=== PATIENT | male | born 1930 | race Caucasian/White ===

== ENCOUNTER 2016-05-16 16:24 | Inpatient (IN) | payer MEDICARE ==
[2016-05-16] MEDS ORDERED: Acetaminophen TAB* 325 MG PO ONE (17:03)
[2016-05-16 17:08] LABS: Hematocrit 40 % (42-52); Hemoglobin 12.5 g/dl (14.0-18.0); Mean Corpuscular HGB Conc 31 g/dl (31-36); Mean Corpuscular Hemoglobin 27 pg (27-31); Mean Corpuscular Volume 88 fL (80-94); Mean Platelet Volume 9 um3 (7.4-10.4); Red Blood Count 4.59 10^6/ul (4.0-5.4); Red Cell Distribution Width 16 % (10.5-15); White Blood Count 5.1 10^3/ul (3.5-10.8)
--- NOTE | 2016-05-16 17:22 | RAD ---
INDICATION: Shortness of breath. COMPARISON: Similar chest x-ray dated April 13, 2015 TECHNIQUE: Single AP portable view of the chest was obtained. FINDINGS: Image quality is compromised due to the relative inferiority of a portable chest x-ray. The degree of cardiomegaly is similar to the previous chest x-ray. There is coarse calcification overlying the arch of the aorta. There has been mildly recent the degree of pulmonary vasculature engorgement and indistinction. The lungs are grossly clear. There is no evidence of a large pleural effusion. Visualized bones are normal for the patient's age. IMPRESSION: In the correct clinical setting chest x-ray findings could be compatible with exacerbation of congestive heart failure.
[2016-05-16 17:24] LABS: BUN/Creatinine Ratio 18.8 (8-20); Calcium 9.3 mg/dL (8.6-10.3); EGFR African American 59.8 (>60); EGFR Non-African American 46.5 (>60); Globulin 3.1 g/dL (2-4); Potassium 4.3 mmol/L (3.5-5.0); Total Bilirubin 0.6 mg/dL (0.2-1.0); Total Protein 7.1 g/dL (6.4-8.9)
[2016-05-16 17:27] LABS: Troponin I 0.04 ng/mL (<0.04)
[2016-05-16] MEDS ORDERED: cefTRIAXone(*) 1 GM in NS 0.9% 50 ML* 50 ML IVPB ONE (18:20)
[2016-05-16 19:10] LABS: Urine Bacteria Absent (Absent); Urine Bilirubin Negative (Negative); Urine Glucose Negative (Negative); Urine Nitrite Negative (Negative)
[2016-05-16] MEDS ORDERED: Ondansetron INJ* 2 MG/ML VIAL IV PRN (19:18)
[2016-05-16] MEDS ORDERED: Acetaminophen TAB* 325 MG PO PRN (19:18)
[2016-05-16] MEDS ORDERED: NS 0.9% 1000 ML* 2,000 ML IV ONE (19:18)
[2016-05-16] MEDS ORDERED: Albuterol 2.5 MG/3 ML NEB.SOL* (0.083%) INH PRN (19:23)
[2016-05-16] MEDS ORDERED: NS 0.9% 1000 ML* 1,000 ML IV SCH (19:30)
[2016-05-16] MEDS ORDERED: cefTRIAXone VIAL(*) 1,000 MG in NS 0.9% 50 ML* 50 ML IVPB SCH (20:00)
[2016-05-16] MEDS ORDERED: Iodixanol* (CONTRAST) 320 MG/ML 100 ML SDV IV ONE (20:08)
[2016-05-16] MEDS: Metoprolol Tartrate TAB* 50 mg PO SCH ×2 (20:28→21:34)
--- NOTE | 2016-05-16 21:47 | RAD ---
CLINICAL HISTORY: Abdominal pain COMPARISON: None TECHNIQUE: Contrast enhanced CT examination of the abdomen and pelvis from the lung bases through the initial tuberosities. The patient received 136 mL Visipaque 320 intravenously prior to imaging. FINDINGS: Imaging is limited by respiratory motion artifact. VISUALIZED LUNG BASES: The visualized lung bases are grossly clear. There is no pleural effusion. ABDOMEN AND PELVIS: The liver exhibits geographic areas of relative hypoattenuation particularly involving the right lobe of the liver. There are no definite enhancing masses or surface irregularity. The spleen, pancreas and adrenal glands are grossly normal in appearance. The gallbladder is normal. The right kidney is normal in appearance. There are multiple left-sided renal cysts the superior most left renal cyst has a Hounsfield unit greater than that of a simple cyst. The urinary bladder measures 16.5 x 10.6 cm in the sagittal plane and 12.3 cm transverse. Evaluation the bowel is limited without oral contrast. The small and large bowel are not distended. The patient's normal appendix is identified in the right lower quadrant (coronal image 40 of 136). There is no gross retroperitoneal or mesenteric lymphadenopathy. The pelvic viscera is normal in appearance. The calcified abdominal aorta exhibits mild aneurysmal dilatation measuring a maximum axial dimension 3.0 x 3.2 cm. There is coarse atherosclerotic calcification at the origins of the celiac trunk, superior mesenteric artery, left renal artery and the bilateral iliofemoral arteries. Degenerative changes include multilevel loss of intervertebral disc height involving the lower thoracic and lumbar spine as well as multilevel vacuum disc phenomenon..There are no sinister bone lesions. IMPRESSION: 1. Enlarged urinary bladder measuring approximate volume of 3.3 L. Please correlate to in since a bladder and/or urinary outlet obstruction. 2. Diffuse calcified atherosclerosis of the abdominal aorta and branch vessels. There is a small abdominal aortic aneurysm measuring 3.0 x 3.2 cm in the axial plane. 3. Multiple left renal cysts in addition to a hyperdense cyst with a Hounsfield unit greater than that of a simple cyst. On a nonemergent basis this cyst can be characterized with renal ultrasound. 4. Likely geographic fatty infiltration of the liver. 5. Additional chronic and degenerative changes as described in the body of the report.
[2016-05-16] MEDS ORDERED: Haloperidol INJ IV/IM* 5 MG/ML AMP ONE (23:45)
[2016-05-16] MEDS: IPRATROPIUM RESP MDI INH SCH (23:58)
[2016-05-16] MEDS: ALBUTEROL INH SCH (23:58)
--- NOTE | 2016-05-17 02:29 | HP ---
HISTORY AND PHYSICAL: DATE OF ADMISSION: 05/16/16 PRIMARY CARE PROVIDER: Saul Contreras MD ATTENDING PHYSICIAN WHILE IN THE HOSPITAL: Logan Kim MD * (report dictated by Silvio Guevara NP) CHIEF COMPLAINT: 1. Altered mental status. 2. Vomiting x1. HISTORY OF PRESENT ILLNESS: Mr. Slaughter is an 86-year-old male patient who has a history of hypertension, atrial fibrillation, pulmonary edema, hyperlipidemia, COPD, and he has had 2 CVAs with residual expressive aphasia in addition to his BPH and ANTIONETTE, although he is not on any treatment for this. He comes in today from [place]. His son was called as the patient was having more difficulty with expressing his words and was more confused than at his baseline. The patient has expressive aphasia at baseline, but today he was having significantly worsening trouble expressing his words. There has been no reports recently and again the patient really is unable to give much history because of his confusion and his garbled speech. There has been no report recently of fevers or chills or abdominal pain or any nausea or vomiting. The patient's son says that he last saw his father in [place] time and he had some low back pain in the middle of his back, but the patient is not complaining of this now. There were no reports of URI symptoms or shortness of breath or cough. There is just really altered mental status and weakness. His son went to [place] to get his father and take him to Urgent Care to be evaluated, but when he got there, he noted that he could not get him up, could not stand him, which was a complete change for his father; so at that point, they called the ambulance and he was brought in and on his way in to the hospital, it was noted that he did vomit x1. The patient denied having any abdominal discomfort, but he was evaluated in the ER and it was found that he had a fever of almost 103, tachycardic, he appeared to be septic, and the hospitalist service was asked to evaluate for admission. PAST MEDICAL HISTORY: Significant for: 1. Hypertension. 2. Atrial fibrillation. 3. Pulmonary edema. 4. Hyperlipidemia. 5. COPD. 6. CVA x2. 7. BPH. 8. ANTIONETTE. PAST SURGICAL HISTORY: Denied. HOME MEDICATIONS: Include: 1. Warfarin 3 mg daily. 2. Hytrin 10 mg p.o. b.i.d. 3. Zocor 20 mg daily. 4. Potassium 20 mEq p.o. daily. 5. Multivitamin 1 tablet daily. 6. Saw palmetto 3 capsules p.o. daily. 7. Toprol-XL 50 mg p.o. daily. 8. Ipratropium bromide 0.6% both nares b.i.d. before meals. 9. Lasix 20 mg daily. 10. Aspirin 81 mg daily. 11. Combivent 1 puff inhaled b.i.d. ALLERGIES: Include no known drug allergies. FAMILY HISTORY: According to the patient's son, mother lived up to age 93; father had a heart attack in his 60s. SOCIAL HISTORY: He is a former smoker. He does not drink alcohol. He lives in [place]. Surrogate decision maker is his son, Cira. REVIEW OF SYSTEMS: There is documented fever here, but the review is limited because of the patient's garbled speech. He is able to tell me that he has lower abdominal pain. He has been having nuts. He has no chest pain or any shortness of breath. There was 1 episode of vomiting. He denies any dysuria. Review of 14 systems attempted, but limited given the patient's altered mental status. PHYSICAL EXAMINATION GENERAL: At this time, Mr. Slaughter is an 86-year-old male patient. He appears to be in a mild amount of respiratory distress. He is awake and he is alert. He appears to be chronically ill-appearing male. VITAL SIGNS: Reveals blood pressure of 153/76, pulse of 119, respirations 24, O2 sat 91% on 4 L, and temperature 102.8. HEENT: Head is atraumatic and normocephalic. Eyes: EOMs are intact. Sclerae anicteric and not pale. Throat: Oral mucosa appears to be dry. No oropharyngeal erythema. NECK: Supple. LUNGS: Diminished in the bases. No wheezes, rales, or rhonchi. HEART: Heart sounds S1 and S2. Regular rate and rhythm. No murmurs, rubs, or gallops. ABDOMEN: Soft, mildly distended, he was tender in the lower suprapubic area. No CVA tenderness. EXTREMITIES: Pulses are 2+ throughout. He is able to move all 4 extremities with 5/5 strength. SKIN: Intact. NEUROLOGIC: He is awake. He is alert to himself. His speech is garbled and not clear. Shelter Advocate are equal. Tongue midline. He had no gross focal deficits. DIAGNOSTIC STUDIES/LAB DATA: Today revealed a WBC of 5.1, RBC of 4.59, hemoglobin of 12.5, hematocrit of 40, and platelet count of 179. His INR 2.81 and PTT 32.1. His sodium of 138, potassium 4.3, chloride 101, bicarb 32, BUN 27 , creatinine 1.44, glucose 211, lactic was 1.6, and calcium 9.3. Total bili 0.6 , AST 18, ALT 13, and alk phos 75. Troponin 0.04. BNP of 413. Albumin of 4.0. Urine showed 1+ protein, 3+ blood, 3+ leukocyte esterase, 3+ wbc, and 3+ rbc. He had a chest x-ray obtained today. To my read, he does appear to have pulmonary vascular congestion. There is no infiltrates or effusions. Radiology read it in current clinical setting chest x-ray findings could be compatible with exacerbation of CHF. EKG showed atrial fibrillation, rate of [address] elevation or T-wave inversions were noted, compared to the previous EKG it is similar. He had an echo that showed an EF 55% to 60%, just in the beginning of this month. Old medical records reviewed. ASSESSMENT AND PLAN: Mr. Slaughter is an 86-year-old male patient coming into the ER today with complaints of altered mental status and lower abdominal discomfort and weakness. On evaluation in the ER, he was noted to be septic, he was admitted under inpatient status for: 1. Sepsis: At this point, I think the etiology is most likely urinary tract infection, so I am going to do CT of the abdomen to make sure there is not any diverticulitis or possible pyelonephritis. He does have a high fever of 103. He is tachycardiac. I do think he warrants 2 L of fluids upfront. In addition to this, Rocephin to start and zuniga culture him, which we have done and he does have a slight work of breathing, so I am going to go ahead and put him on Vapotherm to help him with his work of breathing and we will continue to evaluate him. I did discuss with the family that he could deteriorate and require possible intubation, but at this point, I am hopeful with Vapotherm, fluids, and antibiotics; we can get him to improve and lactic was stable. We will continue to follow. 2. Atrial fibrillation with rapid ventricular response: This is partly being driven by the sepsis picture. I am going to give him some Tylenol to get the fever down. In addition to this, we will give him fluids, put him on Vapotherm. I am going to give him metoprolol, but I am going to change it to b.i.d. metoprolol tartrate and we would hold parameters. If that does not get the heart rate to come down, then I will consider starting Cardizem drip. We are giving him IV Lopressor and continue with beta blockers as long as his pressure tolerates, which it did so far. He is therapeutic on his Coumadin. We will continue. 3. Hypertension: I am going to stop his medications with the exception of his metoprolol. 4. Pulmonary edema: He has had a history of this. He has got some on the chest x-ray, but on lung exam, he is clear. Given the sepsis picture, he needs hydration currently. 5. Hyperlipidemia: Continue current medical regimen. 6. Chronic obstructive pulmonary disease: We will continue his Combivent b.i.d. and p.r.n. nebs. 7. History of cerebrovascular accidents x2: Continue secondary prevention. 8. Benign prostatic hyperplasia: I am going to hold the Hytrin as this can lower the blood pressure. We will place the Hyman for accurate Is and Os. 9. Obstructive sleep apnea: Follow with his primary. 10. DVT prophylaxis: He is on Coumadin. His INR is therapeutic. We will continue. 11. Fluid, electrolytes, and nutrition. Again, he can have a heart-healthy diet. TIME SPENT: Time spent on the admission was 30 minutes; greater than half the time was spent [id number] with the patient obtaining my history and physical, the other half time is spent going over the plan of care with the patient and implementing plan of care. I discussed the plan of care with my attending, Dr. Kim. He is in agreement. SILVIO GUEVARA NP CC: Saul Contreras MD: Dr. Booth * [id number]/[facility] #: [id number] [facility]
[2016-05-17 07:38] LABS: Hematocrit 37 % (42-52); Hemoglobin 11.3 g/dl (14.0-18.0); Mean Corpuscular HGB Conc 31 g/dl (31-36); Mean Corpuscular Hemoglobin 27 pg (27-31); Mean Corpuscular Volume 88 fL (80-94); Mean Platelet Volume 10 um3 (7.4-10.4); Red Blood Count 4.17 10^6/ul (4.0-5.4); Red Cell Distribution Width 16 % (10.5-15); White Blood Count 4.7 10^3/ul (3.5-10.8)
[2016-05-17 07:53] LABS: BUN/Creatinine Ratio 19.5 (8-20); EGFR African American 75.3 (>60); EGFR Non-African American 58.5 (>60); Potassium 3.8 mmol/L (3.5-5.0)
[2016-05-17] MEDS: Metoprolol Tartrate TAB* 50 mg PO SCH ×2 (08:53→20:39)
[2016-05-17] MEDS: Potassium Chlor TAB* 20 MEQ TAB.ER PO SCH (08:53)
[2016-05-17] MEDS: Aspirin Low Dose CHEW TAB* 81 MG PO SCH (08:54)
[2016-05-17] MEDS: Atorvastatin* 10 MG TAB PO SCH (08:54)
[2016-05-17] MEDS: IPRATROPIUM RESP MDI INH SCH ×2 (10:45→20:29)
[2016-05-17] MEDS: ALBUTEROL INH SCH ×2 (10:45→20:29)
--- NOTE | 2016-05-17 16:25 | ED ---
Juan Govea SooYoung, scribed for Sergio Cantor MD on 05/16/16 at 1716 . Shortness of Breath - HPI Summary HPI Summary: LEVEL 5 CAVEAT: LIMITED HPI DUE TO PT CONDITION, UNRELIABLE NARRATOR. 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 Son was called by the fpc at 1530 regarding pt having SOB and lower back aches. He met the pt at [facility] and they were referred to ED. Associated sx: "fogginess," vomiting, fever, lower back aches. Son is unsure if pt has had diarrhea, cough recently. PMHx: pos TIA, neg DM. - History of Current Complaint Chief Complaint: EDShortnessOfBreath Time Seen by Provider: 05/16/16 16:42 Hx Obtained From: Patient, Family/Creative Services Specialist - son, Medical Records Onset/Duration: Lasting Hours, Still Present Current Severity: Moderate Associated Signs & Symptoms: Fever - Allergy/Home Medications Allergies/Adverse Reactions: Allergies Allergy/AdvReac Type Severity Reaction Status Date / Time No Known Allergies Allergy Verified 04/14/15 02:01 Home Medications: Home Medications Albuterol/Ipratropium RESP(NF) [Combivent Respimat(NF)] 1 puff INH BID 05/16/16 [History Confirmed 05/16/16] Aspirin Low Dose CHEW TAB* [Aspirin Low Dose TAB*] 81 mg PO DAILY 05/16/16 [ History Confirmed 05/16/16] Ipratropium Crisfield (Nasal) [Ipratropium Crisfield] 0.06 % BOTH NARES BID AC 05/16 [History Confirmed 05/16/16] Metoprolol Succinate XL TAB* [Toprol XL TAB*] 50 mg PO DAILY 05/16/16 [History Confirmed 05/16/16] Multiple Vitamin [Daily Multiple Vitamin] 1 tab PO DAILY 05/16/16 [History Confirmed 05/16/16] Potassium Chlor TAB* [Klor Con ER TAB*] 20 meq PO DAILY 05/16/16 [History Confirmed 05/16/16] Simvastatin TAB(NF) [Zocor(NF)] 20 mg PO DAILY 05/16/16 [History Confirmed 05/16] Terazosin CAP* [Hytrin CAP*] 10 mg PO BID 05/16/16 [History Confirmed 05/16/16] Warfarin TAB(*) [Coumadin TAB(*)] 3 mg PO DAILY 05/16/16 [History Confirmed 07/28] PMH/Surg Hx/FS Hx/Imm Hx Previously Healthy: No Endocrine/Hematology History: Denies: Hx Diabetes Cardiovascular History: Reports: Hx Hypertension Denies: Hx Pacemaker/ICD Respiratory History: Reports: Hx Asthma, Hx Chronic Obstructive Pulmonary Disease (COPD) History: Denies: Hx Renal Disease Musculoskeletal History: Reports: Hx Arthritis Sensory History: Reports: Hx Contacts or Glasses Denies: Hx Hearing Aid Opthamlomology History: Reports: Hx Contacts or Glasses Neurological History: Reports: Hx Transient Ischemic Attacks (TIA) Psychiatric History: Denies: Hx Panic Disorder - Immunization History Date of Tetanus Vaccine: unknown Infectious Disease History: No Infectious Disease History: Denies: Traveled Outside the [place] in Last 30 Days - Family History Known Family History: Positive: Cardiac Disease - father - [place] at 52 - Social History Occupation: Retired Lives: Assisted Living Alcohol Use: unable to confirm Hx Substance Use: No Substance Use Type: Reports: None Hx Tobacco Use: Yes Smoking Status (MU): Former Smoker Review of Systems - ROS Summary Review of Systems Summary: LEVEL 5 CAVEAT: LIMITED ROS DUE TO PT CONDITION, UNRELIABLE NARRATOR. Positive: Fever Negative: Erythema Positive: Shortness Of Breath, Cough Positive: Vomiting Positive: Myalgia - lower back aches. Negative: Edema Negative: Rash Neurological: Other - neg: dizziness; pos: "foggy" All Other Systems Reviewed And Are Negative: No Physical Exam - Summary Physical Exam Summary: Constitutional: Well-developed, Well-nourished, Alert. (-) Distressed Skin: Warm, Dry HENT: Normocephalic; Atraumatic Eyes: Conjunctiva normal Neck: Musculoskeletal ROM normal neck. (-) JVD, (-) Stridor, (-) Tracheal deviation Cardio: Rhythm regular, rate normal, Heart sounds normal; Intact distal pulses; The pedal pulses are 2+ and symmetric. Radial pulses are 2+ and symmetric. (-) Murmur Pulmonary/Chest wall: DIMINISHED BREATH SOUNDS, CRACKLE IN BASES Abd: Soft, (-) Tenderness, (-) Distension, (-) Guarding, (-) Rebound Musculoskeletal: TRACE PEDAL EDEMA; SUPRAPUBIC TENDERNESS Lymph: (-) Cervical adenopathy Neuro: Alert, Oriented x3 Psych: Mood and affect Normal Triage Information Reviewed: Yes Vital Signs On Initial Exam: Initial Vitals Temp Pulse Resp BP Pulse Ox 102.8 F 108 22 170/77 91 05/16/16 17:00 05/16/16 17:00 05/16/16 17:00 05/16/16 17:00 05/16/16 17:00 Vital Signs Reviewed: Yes Diagnostics - Vital Signs Vital Signs Temp Pulse Resp BP Pulse Ox 05/16/16 17:07 127 28 89 05/16/16 17:00 102.8 F 108 22 170/77 91 - Laboratory Lab Results: Lab Results 05/16/16 Range/Units 16:55 WBC 5.1 (3.5-10.8) 10^3/ul RBC 4.59 (4.0-5.4) 10^6/ul Hgb 12.5 L (14.0-18.0) g/dl Hct 40 L (42-52) % MCV 88 (80-94) fL MCH 27 (27-31) pg MCHC 31 (31-36) g/dl RDW 16 H (10.5-15) % Plt Count 179 (150-450) 10^3/ul MPV 9 (7.4-10.4) um3 Neut % (Auto) 91.4 H (38-83) % Lymph % (Auto) 3.1 L (25-47) % Platte % (Auto) 2.7 (1-9) % Eos % (Auto) 1.4 (0-6) % Baso % (Auto) 1.4 (0-2) % Absolute Neuts (auto) 4.7 (1.5-7.7) 10^3/ul Absolute Lymphs (auto) 0.2 L (1.0-4.8) 10^3/ul Absolute Monos (auto) 0.1 (0-0.8) 10^3/ul Absolute Eos (auto) 0.1 (0-0.6) 10^3/ul Absolute Basos (auto) 0.1 (0-0.2) 10^3/ul Absolute Nucleated RBC 0.01 10^3/ul Nucleated RBC % 0.1 Result Diagrams: 05/17/16 06:54 05/17/16 06:54 Lab Statement: Any lab studies that have been ordered have been reviewed, and results considered in the medical decision making process. - Radiology CXR Xray Interpretation: Positive (See Comments) - IMPRESSION: In the correct clinical setting CXR findings could be compatible with exacerbation of CHF. Radiology Interpretation Completed By: Radiologist - EKG 1 Cardiac Rate: Tachycardia - 118 bpm EKG Rhythm: Atrial Fibrillation - with RVR Course/Dx - Course Course Of Treatment: MDM: A 86 y/o M BIBA from assisted living presents with SOB. Pt is an unreliable narrator. Son is present. Trop at 1655 is 0.04. EKG shows afib with RVR, tachy. - Diagnoses Provider Diagnoses: UTI (urinary tract infection), Sepsis, CHF (congestive heart failure) - Physician Notifications Discussed Care of Patient With: Dr. Guevara, hospitalist Instructed by Provider To: Admit As Inpatient Discharge - Discharge Plan Condition: Fair Disposition: ADMITTED TO [facility] The documentation as recorded by the Juan green SooYoung accurately reflects the service I personally performed and the decisions made by me, Sergio Cantor MD.
[2016-05-17] MEDS: Warfarin TAB(*) 3 MG PO SCH (17:07)
[2016-05-17] MEDS: cefTRIAXone VIAL(*) 1,000 MG in NS 0.9% 50 ML* 50 ML IVPB SCH (17:07)
--- NOTE | 2016-05-17 17:15 | PN ---
Subjective Date of Service: 05/17/16 Interval History: . Saw patient at bedside today. denies new complaints. Actually feels well. Daughter present -- says he is at or near his baseline. iv abx going well hr controlled; we discussed transfer to medical floor and he seemed ok with this idea. will follow. . Family History: Unchanged from Admission Social History: Unchanged from Admission Past Medical History: Unchanged from Admission Objective Active Medications: . Acetaminophen (Tylenol Tab*) 650 mg PO Q4H PRN PRN Reason: FEVER/PAIN Albuterol (Ventolin 2.5 Mg/3 Ml Neb.Ada*) 2.5 mg INH Q2H PRN PRN Reason: SOB/WHEEZING Albuterol/Ipratropium (Combivent Respimat(Nf)) 1 puff INH BID [facility] PRN Reason: Protocol Last Admin: 05/17/16 10:45 Dose: Not Given Aspirin (Aspirin Low Dose Tab*) 81 mg PO DAILY [facility] Last Admin: 05/17/16 08:54 Dose: 81 mg Atorvastatin Calcium (Lipitor*) 10 mg PO DAILY [facility] Last Admin: 05/17/16 08:54 Dose: 10 mg Haloperidol Lactate (Haldol Inj Iv/Im*) 5 mg IV SLOW PU Q6H PRN PRN Reason: AGITATION Ceftriaxone Sodium 1,000 mg/ (Sodium Chloride) 50 mls @ 200 mls/hr IVPB 1800 [facility] Last Admin: 05/17/16 17:07 Dose: 200 mls/hr Metoprolol Tartrate (Lopressor Tab*) 50 mg PO Q12HR [facility] Last Admin: 05/17/16 08:53 Dose: 50 mg Ondansetron HCl (Zofran Inj*) 4 mg IV Q6H PRN PRN Reason: NAUSEA Potassium Chloride (Klor Con Er Tab*) 20 meq PO DAILY [facility] Last Admin: 05/17/16 08:53 Dose: 20 meq Warfarin Sodium (Coumadin Tab(*)) 3 mg PO DAILY@1700 [facility] PRN Reason: Protocol Last Admin: 05/17/16 17:07 Dose: 3 mg . Vital Signs 05/16/16 05/16/16 05/16/16 19:30 20:00 20:30 Temperature Pulse Rate 126 124 Respiratory 22 24 Rate Blood Pressure 128/64 107/75 126/78 (mmHg) O2 Sat by Pulse 96 97 Oximetry 05/16/16 05/16/16 05/16/16 21:00 22:00 22:30 Temperature Pulse Rate 85 113 98 Respiratory 24 21 23 Rate Blood Pressure 159/109 148/105 (mmHg) O2 Sat by Pulse 95 96 98 Oximetry Oxygen Devices in Use Now: Nasal Cannula Appearance: edlerly man - dementia. Eyes: No Scleral Icterus Ears/Nose/Mouth/Throat: Clear Oropharnyx Neck: Trachea Midline Respiratory: Symmetrical Chest Expansion and Respiratory Effort - rhonchorous bilterally. Cardiovascular: NL Sounds; No Murmurs; No JVD Abdominal: NL Sounds; No Tenderness; No Distention Lymphatic: No Cervical Adenopathy Extremities: No Edema Skin: No Rash or Ulcers Neurological: NL Sensation Lines/Tubes/Other Access: Clean, Dry and Intact Peripheral IV Nutrition: Taking PO's Result Diagrams: 05/17/16 06:54 05/17/16 06:54 Additional Lab and Data: . Microbiology and Other Data: Microbiology 05/17/16 01:00 Nasal Screen MRSA (PCR)(RICHARD) - Final Nasal Mrsa Negative Assess/Plan/Problems-Billing . Assessment: 86 yo man with acute urinary tract infection and sepsis -- with rapid atrial fibrillation -- both resolving with acute therapy including IV Abx and aggressive IVF. Current Medications: - Acetaminophen (Tylenol Tab) 650 mg PO Q4H PRN FEVER/PAIN - Albuterol (Ventolin 2.5 Mg/3 Ml Neb.Ada*) 2.5 mg INH Q2H PRN SOB/WHEEZING - Albuterol/Ipratropium (Combivent Respimat(Nf)) 1 puff INH BID - Aspirin (Aspirin Low Dose Tab*) 81 mg PO DAILY [facility]IELA - Atorvastatin Calcium (Lipitor*) 10 mg PO DAILY - Haloperidol Lactate (Haldol Inj Iv/Im) 5 mg IV SLOW PU Q6H PRN AGITATION - Ceftriaxone Sodium 1,000 mg IV daily - Metoprolol Tartrate (Lopressor Tab*) 50 mg PO Q12HR - Ondansetron HCl (Zofran Inj*) 4 mg IV Q6H PRN NAUSEA - Potassium Chloride (Klor Con Er Tab*) 20 meq PO DAILY - Warfarin Sodium (Coumadin Tab) 3 mg PO DAILY . - Patient Problems (1) Urinary tract infection Current Visit: Yes Status: Acute Priority: High Comment: - causing sepsis and decline in mental status in this delicate patient. (2) Sepsis Current Visit: Yes Status: Acute Priority: High Comment: - Secondary to UTI - Cultures pending - s/p aggressive IVF - now resuscitated and stablized. (3) Altered mental state Current Visit: No Status: Acute Code(s): R41.82 - ALTERED MENTAL STATUS, UNSPECIFIED Comment: No evidence for acute CVA on imaging Attribute to UTI and sepsis (4) Atrial fibrillation with RVR Current Visit: No Status: Acute Priority: High Code(s): I48.91 - UNSPECIFIED ATRIAL FIBRILLATION Comment: Rate controlled after resuscitation continue with outpatient regimen; metoprolol 50 mg PO BID c/w coumadin (5) DVT prophylaxis Current Visit: No Status: Acute Priority: High Code(s): PTV0038 - Comment: coumadin (6) History of CVA in adulthood Current Visit: No Status: Acute Code(s): Z86.73 - PRSNL HX OF TIA (TIA), AND CEREB INFRC W/O RESID DEFICITS SNOMED Code(s): 472590724 Comment: c/w ASA
[2016-05-17] MEDS: Haloperidol INJ IV/IM* 5 MG/ML AMP IV SLOW PU PRN ×2 (18:35→23:50)
[2016-05-17] MEDS: CMCS Melatonin (NF) 3 MG TAB PO SCH (20:39)
[2016-05-18 06:10] LABS: Hematocrit 36 % (42-52); Hemoglobin 11.1 g/dl (14.0-18.0); Mean Corpuscular HGB Conc 31 g/dl (31-36); Mean Corpuscular Hemoglobin 27 pg (27-31); Mean Corpuscular Volume 88 fL (80-94); Mean Platelet Volume 9 um3 (7.4-10.4); Red Blood Count 4.05 10^6/ul (4.0-5.4); Red Cell Distribution Width 16 % (10.5-15); White Blood Count 5.2 10^3/ul (3.5-10.8)
[2016-05-18 06:29] LABS: Albumin 3.3 g/dL (3.2-5.2); BUN/Creatinine Ratio 16.1 (8-20); Calcium 8.5 mg/dL (8.6-10.3); EGFR African American 71.1 (>60); EGFR Non-African American 55.3 (>60); Globulin 2.9 g/dL (2-4); Potassium 4.1 mmol/L (3.5-5.0); Total Bilirubin 0.5 mg/dL (0.2-1.0); Total Protein 6.2 g/dL (6.4-8.9)
--- NOTE | 2016-05-18 07:44 | PN ---
Subjective Date of Service: 05/18/16 Interval History: Pt is feeling ok. He denies any pain or SOB. Overnight the patient was reportedly very confused, yelling and aggressive. He required being restraints overnight. Objective Active Medications: Acetaminophen (Tylenol Tab*) 650 mg PO Q4H PRN PRN Reason: FEVER/PAIN Albuterol (Ventolin 2.5 Mg/3 Ml Neb.Ada*) 2.5 mg INH Q2H PRN PRN Reason: SOB/WHEEZING Albuterol/Ipratropium (Combivent Respimat(Nf)) 1 puff INH BID [facility] PRN Reason: Protocol Last Admin: 05/17/16 20:29 Dose: 1 puff Aspirin (Aspirin Low Dose Tab*) 81 mg PO DAILY [facility] Last Admin: 05/17/16 08:54 Dose: 81 mg Atorvastatin Calcium (Lipitor*) 10 mg PO DAILY [facility] Last Admin: 05/17/16 08:54 Dose: 10 mg Haloperidol Lactate (Haldol Inj Iv/Im*) 5 mg IV SLOW PU Q6H PRN PRN Reason: AGITATION Last Admin: 05/17/16 23:50 Dose: 5 mg Ceftriaxone Sodium 1,000 mg/ (Sodium Chloride) 50 mls @ 200 mls/hr IVPB 1800 [facility] Last Admin: 05/17/16 17:07 Dose: 200 mls/hr Melatonin (Melatonin (Nf)) 3 mg PO BEDTIME [facility] Last Admin: 05/17/16 20:39 Dose: 3 mg Metoprolol Tartrate (Lopressor Tab*) 50 mg PO Q12HR [facility] Last Admin: 05/17/16 20:39 Dose: 50 mg Ondansetron HCl (Zofran Inj*) 4 mg IV Q6H PRN PRN Reason: NAUSEA Potassium Chloride (Klor Con Er Tab*) 20 meq PO DAILY [facility] Last Admin: 05/17/16 08:53 Dose: 20 meq Warfarin Sodium (Coumadin Tab(*)) 3 mg PO DAILY@1700 [facility] PRN Reason: Protocol Last Admin: 05/17/16 17:07 Dose: 3 mg Vital Signs 05/17/16 05/17/16 05/17/16 08:00 09:00 10:00 Temperature 99.1 F 99.2 F 99.4 F Pulse Rate 88 92 87 Respiratory 18 17 16 Rate Blood Pressure 130/60 120/61 96/65 (mmHg) O2 Sat by Pulse 96 97 100 Oximetry 05/17/16 05/17/16 05/17/16 11:00 11:42 12:00 Temperature 99.8 F 99.6 F Pulse Rate 88 84 Respiratory 20 22 Rate Blood Pressure 135/64 136/63 (mmHg) O2 Sat by Pulse 100 95 96 Oximetry 05/17/16 05/17/16 05/17/16 13:00 14:00 15:00 Temperature 99.7 F 100.2 F Pulse Rate 90 90 Respiratory 19 24 14 Rate Blood Pressure 115/71 (mmHg) O2 Sat by Pulse 94 97 Oximetry 05/17/16 05/17/16 05/17/16 20:00 20:39 20:40 Temperature 99.5 F Pulse Rate 116 83 59 Respiratory 18 22 21 Rate Blood Pressure 143/92 143/92 (mmHg) O2 Sat by Pulse 93 97 97 Oximetry 05/17/16 05/17/16 05/18/16 20:41 23:55 00:00 Temperature Pulse Rate 82 59 Respiratory 15 16 Rate Blood Pressure (mmHg) O2 Sat by Pulse 94 98 97 Oximetry 05/18/16 05/18/16 05/18/16 00:24 00:30 03:33 Temperature 96.6 F 99.7 F Pulse Rate 88 89 76 Respiratory 21 21 18 Rate Blood Pressure 144/83 (mmHg) O2 Sat by Pulse 94 94 95 Oximetry 05/18/16 04:00 Temperature 99.6 F Pulse Rate 86 Respiratory 17 Rate Blood Pressure (mmHg) O2 Sat by Pulse 96 Oximetry Oxygen Devices in Use Now: Nasal Cannula - 2L-96% Appearance: Elderly male sitting up in bed, NAD Eyes: No Scleral Icterus Ears/Nose/Mouth/Throat: Mucous Membranes Moist Respiratory: Symmetrical Chest Expansion and Respiratory Effort, Clear to Auscultation - diminished breath sounds in all lung salvador Cardiovascular: NL Sounds; No Murmurs; No JVD, No Edema, - - irregularly irregular Abdominal: NL Sounds; No Tenderness; No Distention Extremities: No Clubbing, Cyanosis Skin: No Rash or Ulcers, No Nodules or Sclerosis Neurological: - - + dysarthric speech, oriented to being in the hospital Result Diagrams: 05/18/16 05:50 05/18/16 05:50 Additional Lab and Data: . Microbiology and Other Data: Microbiology 05/17/16 01:00 Nasal Screen MRSA (PCR)(RICHARD) - Final Nasal Mrsa Negative Assess/Plan/Problems-Billing Mr Slaughter is an 86 yo M who has a h/o past CVAs with chronic expressive aphasia, HTN, afib, COPD, BPH and hyperlipidemia who presented to the ER with increased difficulty with speaking and weakness and was found to be likely septic secondary to a UTI. - Patient Problems (1) Sepsis Current Visit: Yes Status: Acute Priority: High Comment: It was felt that the patient's sepsis was secondary to UTI. He had 2 qSOFA indicators on admission and his SOFA score was at least 3. He was hydrated, supported with vapotherm and is now improved. (2) Urinary tract infection Current Visit: Yes Status: Acute Priority: High Comment: It was felt that the patient was septic secondary to UTI on admission. His urine culture was negative. He did have however urinary retention that required placement of a ramirez. Will keep the ramirez in place. Will treat for a total of 10 days (change to cefpodoxime on discharge) for possible UTI though I am not convinced this was the cause of his sepsis. (3) Urinary retention due to benign prostatic hyperplasia Current Visit: Yes Status: Acute Code(s): N28.89 - OTHER SPECIFIED DISORDERS OF KIDNEY AND URETER; R33.8 - OTHER RETENTION OF URINE SNOMED Code(s ): 089673076 Comment: The patient had >1L of urine in his bladder earlier this admission. A ramirez has been placed and should be left in. He can follow up with urology as an outpatient. (4) Altered mental state Current Visit: Yes Status: Acute Code(s): R41.82 - ALTERED MENTAL STATUS, UNSPECIFIED SNOMED Code(s): 286475307 Comment: Secondary to sepsis. Reportedly yesterday he was close to his baseline. Continue to monitor. He does appear to have significant owning. (5) Elevated troponin Current Visit: Yes Status: Acute Code(s): R79.89 - OTHER SPECIFIED ABNORMAL FINDINGS OF BLOOD CHEMISTRY SNOMED Code(s): 044959528 Comment: Likely demand ischemia. No c/o chest pain at this time. I would not pursue any further cardiac work up at this time. I will discuss this with the patient's family when they arrive. (6) Atrial fibrillation with RVR Current Visit: Yes Status: Acute Priority: High Code(s): I48.91 - UNSPECIFIED ATRIAL FIBRILLATION SNOMED Code(s): 382671747635416 Comment: HR is controlled on current regimen. INR was therapeutic on 05/16/15. Will get follow up level and continue the current coumadin dose. (7) History of CVA in adulthood Current Visit: Yes Status: Acute Code(s): Z86.73 - PRSNL HX OF TIA (TIA), AND CEREB INFRC W/O RESID DEFICITS SNOMED Code(s): 079184628 Comment: No signs of CVA this admission. Continue ASA, coumadin. (8) DVT prophylaxis Current Visit: Yes Status: Acute Priority: High Code(s): JCR5153 - SNOMED Code(s): 885765584 Comment: Therapeutic INR
[2016-05-18] MEDS: IPRATROPIUM RESP MDI INH SCH ×2 (08:19→19:37)
[2016-05-18] MEDS: ALBUTEROL INH SCH ×2 (08:19→19:37)
[2016-05-18] MEDS: Atorvastatin* 10 MG TAB PO SCH (10:40)
[2016-05-18] MEDS: Potassium Chlor TAB* 20 MEQ TAB.ER PO SCH (10:40)
[2016-05-18] MEDS: Aspirin Low Dose CHEW TAB* 81 MG PO SCH (10:40)
[2016-05-18] MEDS: Metoprolol Tartrate TAB* 50 mg PO SCH ×2 (10:41→20:04)
[2016-05-18] MEDS: cefTRIAXone VIAL(*) 1,000 MG in NS 0.9% 50 ML* 50 ML IVPB SCH (18:34)
[2016-05-18] MEDS: Warfarin TAB(*) 3 MG PO SCH (18:34)
[2016-05-18] MEDS: CMCS Melatonin (NF) 3 MG TAB PO SCH (20:08)
[2016-05-18] MEDS: Haloperidol INJ IV/IM* 5 MG/ML AMP IV SLOW PU PRN (22:57)
[2016-05-19] MEDS: IPRATROPIUM RESP MDI INH SCH (09:19)
[2016-05-19] MEDS: Metoprolol Tartrate TAB* 50 mg PO SCH ×2 (09:19→22:58)
[2016-05-19] MEDS: Aspirin Low Dose CHEW TAB* 81 MG PO SCH (09:19)
[2016-05-19] MEDS: ALBUTEROL INH SCH (09:19)
[2016-05-19] MEDS: Potassium Chlor TAB* 20 MEQ TAB.ER PO SCH (09:19)
[2016-05-19] MEDS: Atorvastatin* 10 MG TAB PO SCH (09:19)
--- NOTE | 2016-05-19 17:44 | PN ---
Subjective Date of Service: 05/19/16 Interval History: Pt is feeling well. He wants to get back home. He denies any SOB. Objective Active Medications: Acetaminophen (Tylenol Tab*) 650 mg PO Q4H PRN PRN Reason: FEVER/PAIN Albuterol (Ventolin 2.5 Mg/3 Ml Neb.Ada*) 2.5 mg INH Q2H PRN PRN Reason: SOB/WHEEZING Albuterol/Ipratropium (Combivent Respimat(Nf)) 1 puff INH BID [facility] PRN Reason: Protocol Last Admin: 05/19/16 09:19 Dose: 1 puff Aspirin (Aspirin Low Dose Tab*) 81 mg PO DAILY [facility] Last Admin: 05/19/16 09:19 Dose: 81 mg Atorvastatin Calcium (Lipitor*) 10 mg PO DAILY [facility] Last Admin: 05/19/16 09:19 Dose: 10 mg Haloperidol Lactate (Haldol Inj Iv/Im*) 5 mg IV SLOW PU Q6H PRN PRN Reason: AGITATION Last Admin: 05/18/16 22:57 Dose: 5 mg Ceftriaxone Sodium 1,000 mg/ (Sodium Chloride) 50 mls @ 200 mls/hr IVPB 1800 [facility] Last Admin: 05/18/16 18:34 Dose: 200 mls/hr Melatonin (Melatonin (Nf)) 3 mg PO BEDTIME [facility] Last Admin: 05/18/16 20:08 Dose: 3 mg Metoprolol Tartrate (Lopressor Tab*) 50 mg PO Q12HR [facility] Last Admin: 05/19/16 09:19 Dose: 50 mg Ondansetron HCl (Zofran Inj*) 4 mg IV Q6H PRN PRN Reason: NAUSEA Potassium Chloride (Klor Con Er Tab*) 20 meq PO DAILY [facility] Last Admin: 05/19/16 09:19 Dose: 20 meq Vital Signs 05/18/16 05/18/16 05/18/16 18:00 19:00 19:39 Temperature 99.5 F 99.8 F Pulse Rate 95 84 107 Respiratory 17 23 Rate Blood Pressure (mmHg) O2 Sat by Pulse 93 97 97 Oximetry 05/18/16 05/18/16 05/18/16 20:00 20:07 21:00 Temperature 97.3 F 99.8 F 99.4 F Pulse Rate 93 Respiratory 20 18 21 Rate Blood Pressure 141/73 (mmHg) O2 Sat by Pulse 96 96 Oximetry 05/18/16 05/18/16 05/19/16 21:05 21:15 00:42 Temperature 99.4 F 99.3 F 98.5 F Pulse Rate 92 87 85 Respiratory 21 24 20 Rate Blood Pressure 153/74 126/73 (mmHg) O2 Sat by Pulse 96 97 97 Oximetry 05/19/16 05/19/16 05/19/16 03:47 03:48 07:16 Temperature 97.3 F 97.4 F Pulse Rate 95 96 Respiratory 20 20 Rate Blood Pressure 136/82 147/71 (mmHg) O2 Sat by Pulse 97 96 Oximetry 05/19/16 05/19/16 05/19/16 08:00 11:56 15:50 Temperature Pulse Rate 81 90 Respiratory 18 24 18 Rate Blood Pressure (mmHg) O2 Sat by Pulse 95 91 94 Oximetry 05/19/16 15:57 Temperature 97.7 F Pulse Rate 96 Respiratory 21 Rate Blood Pressure 149/88 (mmHg) O2 Sat by Pulse 98 Oximetry Oxygen Devices in Use Now: None Appearance: Elderly male sitting up in bed, NAD Eyes: No Scleral Icterus Ears/Nose/Mouth/Throat: Mucous Membranes Moist Respiratory: Symmetrical Chest Expansion and Respiratory Effort, Clear to Auscultation Cardiovascular: NL Sounds; No Murmurs; No JVD, RRR, - - 1+ LE edema Abdominal: NL Sounds; No Tenderness; No Distention Extremities: No Clubbing, Cyanosis Skin: No Rash or Ulcers, No Nodules or Sclerosis Neurological: - - + expressive aphasia Result Diagrams: 05/18/16 05:50 05/18/16 05:50 Additional Lab and Data: . Microbiology and Other Data: Microbiology 05/17/16 01:00 Nasal Screen MRSA (PCR)([facility]) - Final Nasal Mrsa Negative Assess/Plan/Problems-Billing Mr Slaughter is an 86 yo M who has a h/o past CVAs with chronic expressive aphasia, HTN, afib, COPD, BPH and hyperlipidemia who presented to the ER with increased difficulty with speaking and weakness and was found to be likely septic secondary to a UTI. - Patient Problems (1) Sepsis Current Visit: Yes Status: Acute Priority: High Comment: It was felt that the patient's sepsis was secondary to UTI. He had 2 qSOFA indicators on admission and his SOFA score was at least 3. He was hydrated, supported with vapotherm and is now improved. (2) Acute respiratory failure with hypoxia Current Visit: Yes Status: Acute Code(s): J96.01 - ACUTE RESPIRATORY FAILURE WITH HYPOXIA SNOMED Code(s): 94873779 Comment: Present on admission secondary to sepsis. His hypoxic respiratory failure has improved. His saturations are low 90's on RA. (3) Urinary tract infection Current Visit: Yes Status: Acute Comment: It was felt that the patient was septic secondary to UTI on admission. His urine culture was negative. He did have however urinary retention that required placement of a ramirez. Will keep the ramirez in place. Will treat for a total of 10 days (change to cefpodoxime on discharge) for possible UTI though I am not convinced this was the cause of his sepsis. (4) Urinary retention due to benign prostatic hyperplasia Current Visit: Yes Status: Acute Code(s): N28.89 - OTHER SPECIFIED DISORDERS OF KIDNEY AND URETER; R33.8 - OTHER RETENTION OF URINE SNOMED Code(s ): 328286747 Comment: The patient had >1L of urine in his bladder earlier this admission. A ramirez has been placed and should be left in. He can follow up with urology as an outpatient. I discussed the case with Dr. Contreras. (5) Altered mental state Current Visit: Yes Status: Acute Code(s): R41.82 - ALTERED MENTAL STATUS, UNSPECIFIED SNOMED Code(s): 702909083 Comment: The patient had a metabolic encephalopathy secondary to sepsis. He is essentially at baseline. (6) Elevated troponin Current Visit: Yes Status: Acute Code(s): R79.89 - OTHER SPECIFIED ABNORMAL FINDINGS OF BLOOD CHEMISTRY SNOMED Code(s): 513076343 Comment: Likely demand ischemia. No c/o chest pain at this time. I would not pursue any further cardiac work up at this time. (7) Atrial fibrillation with RVR Current Visit: Yes Status: Acute Code(s): I48.91 - UNSPECIFIED ATRIAL FIBRILLATION SNOMED Code(s): 791937098563069 Comment: HR is controlled on current regimen. INR was 3.01 yestesrday and he received his coumadin last night. Hold coumadin tonight and recheck INR tomorrow. (8) History of CVA in adulthood Current Visit: Yes Status: Acute Code(s): Z86.73 - PRSNL HX OF TIA (TIA), AND CEREB INFRC W/O RESID DEFICITS SNOMED Code(s): 460533453 Comment: No signs of CVA this admission. Continue ASA, coumadin. (9) DVT prophylaxis Current Visit: Yes Status: Acute Code(s): SOU4233 - SNOMED Code(s): 715760731 Comment: Therapeutic INR (10) DNR (do not resuscitate) Current Visit: Yes Status: Acute
[2016-05-19] MEDS: cefTRIAXone VIAL(*) 1,000 MG in NS 0.9% 50 ML* 50 ML IVPB SCH (18:24)
[2016-05-19] MEDS: CMCS Melatonin (NF) 3 MG TAB PO SCH (22:58)
[2016-05-20] MEDS: Haloperidol INJ IV/IM* 5 MG/ML AMP IV SLOW PU PRN (02:28)
[2016-05-20 08:13] VITALS: BP 133/75
[2016-05-20] MEDS: IPRATROPIUM RESP MDI INH SCH ×2 (08:33→08:58)
[2016-05-20] MEDS: ALBUTEROL INH SCH ×2 (08:33→08:58)
[2016-05-20] MEDS: Aspirin Low Dose CHEW TAB* 81 MG PO SCH (08:42)
[2016-05-20] MEDS: Metoprolol Tartrate TAB* 50 mg PO SCH (08:42)
[2016-05-20] MEDS: Atorvastatin* 10 MG TAB PO SCH (08:42)
[2016-05-20] MEDS: Potassium Chlor TAB* 20 MEQ TAB.ER PO SCH (08:44)
--- NOTE | 2016-05-20 09:19 | PN ---
Subjective Date of Service: 05/20/16 Interval History: Pt is feeling well. He denies any pain or SOB. He is ready to go home. Objective Active Medications: Acetaminophen (Tylenol Tab*) 650 mg PO Q4H PRN PRN Reason: FEVER/PAIN Albuterol (Ventolin 2.5 Mg/3 Ml Neb.Ada*) 2.5 mg INH Q2H PRN PRN Reason: SOB/WHEEZING Albuterol/Ipratropium (Combivent Respimat(Nf)) 1 puff INH BID [facility] PRN Reason: Protocol Last Admin: 05/20/16 08:58 Dose: 1 puff Aspirin (Aspirin Low Dose Tab*) 81 mg PO DAILY [facility] Last Admin: 05/20/16 08:42 Dose: 81 mg Atorvastatin Calcium (Lipitor*) 10 mg PO DAILY [facility] Last Admin: 05/20/16 08:42 Dose: 10 mg Enoxaparin Sodium (Lovenox(*)) 110 mg SUBCUT ONCE [facility] Haloperidol Lactate (Haldol Inj Iv/Im*) 5 mg IV SLOW PU Q6H PRN PRN Reason: AGITATION Last Admin: 05/20/16 02:28 Dose: 5 mg Ceftriaxone Sodium 1,000 mg/ (Sodium Chloride) 50 mls @ 200 mls/hr IVPB 1800 [facility] Last Admin: 05/19/16 18:24 Dose: 200 mls/hr Melatonin (Melatonin (Nf)) 3 mg PO BEDTIME [facility] Last Admin: 05/19/16 22:58 Dose: 3 mg Metoprolol Tartrate (Lopressor Tab*) 50 mg PO Q12HR [facility] Last Admin: 05/20/16 08:42 Dose: 50 mg Ondansetron HCl (Zofran Inj*) 4 mg IV Q6H PRN PRN Reason: NAUSEA Potassium Chloride (Klor Con Er Tab*) 20 meq PO DAILY [facility] Last Admin: 05/20/16 08:44 Dose: 20 meq Vital Signs 05/19/16 05/19/16 05/19/16 11:56 15:50 15:57 Temperature 97.7 F Pulse Rate 81 90 96 Respiratory 24 18 21 Rate Blood Pressure 149/88 (mmHg) O2 Sat by Pulse 91 94 98 Oximetry 05/19/16 05/19/16 05/19/16 19:25 20:00 23:40 Temperature 97.7 F 98.2 F Pulse Rate 98 93 Respiratory 19 20 20 Rate Blood Pressure 166/98 134/94 (mmHg) O2 Sat by Pulse 97 98 83 Oximetry 05/20/16 05/20/16 05/20/16 01:57 07:15 09:01 Temperature 97.4 F Pulse Rate 92 Respiratory 17 Rate Blood Pressure 133/75 (mmHg) O2 Sat by Pulse 97 95 97 Oximetry 05/20/16 09:02 Temperature Pulse Rate 67 Respiratory 18 Rate Blood Pressure (mmHg) O2 Sat by Pulse 97 Oximetry Oxygen Devices in Use Now: None Appearance: Eldelry male sitting up in bed, NAD Eyes: No Scleral Icterus Ears/Nose/Mouth/Throat: Mucous Membranes Moist Respiratory: Symmetrical Chest Expansion and Respiratory Effort, Clear to Auscultation - anteriorly Cardiovascular: NL Sounds; No Murmurs; No JVD, - - irregularly irregular, controlled rate, 1+ LE edema Abdominal: NL Sounds; No Tenderness; No Distention Extremities: No Clubbing, Cyanosis Skin: No Rash or Ulcers, No Nodules or Sclerosis Neurological: - - alert, more appropriate speech today Result Diagrams: 05/18/16 05:50 05/18/16 05:50 Additional Lab and Data: . Microbiology and Other Data: Microbiology 05/17/16 01:00 Nasal Screen MRSA (PCR)([facility]) - Final Nasal Mrsa Negative Assess/Plan/Problems-Billing Mr Slaughter is an 86 yo M who has a h/o past CVAs with chronic expressive aphasia, HTN, afib, COPD, BPH and hyperlipidemia who presented to the ER with increased difficulty with speaking and weakness and was found to be likely septic secondary to a UTI. - Patient Problems (1) Sepsis Current Visit: Yes Status: Acute Comment: Resolved. (2) Acute respiratory failure with hypoxia Current Visit: Yes Status: Acute Code(s): J96.01 - ACUTE RESPIRATORY FAILURE WITH HYPOXIA SNOMED Code(s): 44506571 Comment: Present on admission secondary to sepsis. His hypoxic respiratory failure has improved. Pt is back on suupplemental O2 this AM (2L) will check O2 sats on RA again to see if he needs supplemental O2. (3) Urinary tract infection Current Visit: Yes Status: Acute Comment: Will continue cefpodoxime x6 more days. Continue ramirez catheter drainage until seen by urology. (4) Urinary retention due to benign prostatic hyperplasia Current Visit: Yes Status: Acute Code(s): N28.89 - OTHER SPECIFIED DISORDERS OF KIDNEY AND URETER; R33.8 - OTHER RETENTION OF URINE SNOMED Code(s ): 077285660 Comment: The patient had >1L of urine in his bladder earlier this admission. A ramirez has been placed and should be left in. He can follow up with urology as an outpatient. I discussed the case with Dr. Contreras who will make the referral to urology. (5) Altered mental state Current Visit: Yes Status: Acute Code(s): R41.82 - ALTERED MENTAL STATUS, UNSPECIFIED SNOMED Code(s): 349805867 Comment: The patient had a metabolic encephalopathy secondary to sepsis. He is essentially at baseline. (6) Elevated troponin Current Visit: Yes Status: Acute Code(s): R79.89 - OTHER SPECIFIED ABNORMAL FINDINGS OF BLOOD CHEMISTRY SNOMED Code(s): 838916701 Comment: Likely demand ischemia. No c/o chest pain at this time. I would not pursue any further cardiac work up at this time. (7) Atrial fibrillation with RVR Current Visit: Yes Status: Acute Code(s): I48.91 - UNSPECIFIED ATRIAL FIBRILLATION SNOMED Code(s): 878261083819211 Comment: HR is controlled on current regimen. INR today is subtherapeutic at 1.84-will give lovenox 110mg SQ x1 now and resume usual dose of coumadin. Repeat INR 05/22/16. (8) History of CVA in adulthood Current Visit: Yes Status: Acute Code(s): Z86.73 - PRSNL HX OF TIA (TIA), AND CEREB INFRC W/O RESID DEFICITS SNOMED Code(s): 313234659 Comment: No signs of CVA this admission. Continue ASA, coumadin. (9) DVT prophylaxis Current Visit: Yes Status: Acute Code(s): WYM6424 - SNOMED Code(s): 227036038 Comment: Therapeutic INR/lovenox (10) DNR (do not resuscitate) Current Visit: Yes Status: Acute
[2016-05-20] MEDS ORDERED: Furosemide IV* 10 MG/ML VIAL (40 MG) IV SLOW PU ONE (09:38)
[2016-05-20] MEDS ORDERED: Enoxaparin(*) 150 MG/ML 1 ML SYRINGE SUBCUT SCH (10:00)
--- NOTE | 2016-05-21 01:55 | DS ---
DISCHARGE SUMMARY: DATE OF ADMISSION: 05/16/16 DATE OF DISCHARGE: 05/20/16 PRIMARY CARE PROVIDER: Dr. Contreras. PRINCIPAL DIAGNOSIS: Sepsis secondary to probable urinary tract infection with urinary retention. SECONDARY DIAGNOSES: 1. Chronic obstructive pulmonary disease. 2. Benign prostatic hyperplasia. 3. Hyperlipidemia. 4. Atrial fibrillation. DISCHARGE MEDICATIONS: 1. Coumadin 3 mg p.o. daily. 2. Ipratropium bromide nasal spray 1 squirt to both nostrils twice daily. 3. Terazosin 10 mg p.o. b.i.d. 4. Simvastatin 20 mg p.o. daily. 5. Combivent Respimat 1 puff inhaled b.i.d. 6. Prostate 3 caps p.o. daily. 7. Potassium chloride 20 mEq p.o. daily. 8. Metoprolol-XL 50 mg p.o. daily. 9. Lasix 20 mg p.o. daily. 10. Multivitamin 1 tab p.o. daily. 11. Aspirin 81 mg p.o. daily. 12. Cefpodoxime 200 mg p.o. q.12 hours x6 days. HOSPITAL COURSE: Mr. Slaughter is an 86-year-old male who presented to the emergency room on 05/16/16 with increased expressive aphasia and weakness. The patient was admitted for presumed sepsis secondary to a urinary tract infection. He was placed initially in the intensive care unit. The patient's urine never grew any specific bacteria; however, he was found to have urinary retention. A Hyman catheter was placed as greater than 1 L of urine was noted within his bladder. The Hyman catheter has remained in place and the patient will need to follow up with Urology as an outpatient. In terms of the patient's sepsis, this has resolved. Again, no clear source was identified; however, the patient improved on a third generation cephalosporin. The patient is being discharged home to continue 6 more days of cefpodoxime. Overall, his mental status and his expressive aphasia are back to baseline. The patient carries a history of atrial fibrillation. This was controlled on his usual home medication regimen. He has been maintained on his Coumadin; however, after holding 1 dose due to slightly elevated INR, his INR is now subtherapeutic. The patient did receive a dose of Lovenox on the morning of 11/27 and he should resume his usual dose of Coumadin tonight. On admission, the patient also had hypoxic respiratory failure. I suspect this was secondary to his sepsis. This has resolved; however, it does appear that he needs supplemental oxygen at all times. The patient's son had discussed with me that he had previously been setup to have home O2; however, the patient never used it and therefore it was continued. Additionally, the patient was found to have a slightly elevated troponin on admission. I felt that this was likely secondary to demand ischemia. No further workup was undertaken. FOLLOWUP CONCERNS: The patient is being discharged home today on 05/20/16. ACTIVITY LEVEL: As tolerated. DIET: Regular. CONDITION ON DISCHARGE: Stable. The patient should follow up with Dr. Contreras in the next 4 to 7 days and with Urology in the next 1 to 2 weeks. TIME SPENT: 35 minutes were spent discharging this patient. CC: Dr. Contreras* [id number]/CPS #: [id number] MTDD
== END 2016-05-20 14:05 | DRG 871 ==
LOC: ED 16:24 → ICU 19:13 → MED 05-18 21:35
PROVIDERS: ADMIT Hospitalist; ATTEND Hospitalist
DX: A41.9 Sepsis, unspecified organism (principal); J96.01 Acute respiratory failure with hypoxia; N39.0 Urinary tract infection, site not specified; J81.1 Chronic pulmonary edema; N40.1 Benign prostatic hyperplasia with lower urinary tract symptoms; R33.8 Other retention of urine; J44.9 Chronic obstructive pulmonary disease, unspecified; E78.5 Hyperlipidemia, unspecified; I48.91 Unspecified atrial fibrillation; G47.33 Obstructive sleep apnea (adult) (pediatric); I10 Essential (primary) hypertension; Z79.01 Long term (current) use of anticoagulants; I69.320 Aphasia following cerebral infarction; Z79.82 Long term (current) use of aspirin; Z79.899 Other long term (current) drug therapy; Z87.891 Personal history of nicotine dependence; R74.8 Abnormal levels of other serum enzymes; Z66 Do not resuscitate
CPT/HCPCS: 36415; 71010; 74177; 80048; 80053; 81003; 81015; 83605; 83880; 84145; 84484; 85025; 85610; 85730; 87040; 87086; 87641; 87899; 93005; 94640; 94760; 99285; A9270-GY; J0696; J1630; J1650; J1940; Q9967

== ENCOUNTER 2016-05-21 05:02 | Emergency (ER) | payer MEDICARE ==
[2016-05-21 05:06] VITALS: BP 143/83
--- NOTE | 2016-05-21 05:52 | ED ---
Felipe Govea Billy, scribed for Charlie Tejeda MD on 05/21/16 at 0510 . GI/ HPI - HPI Summary HPI Summary: 86 y/o male BIB[facility] to [facility] from [place] after the catheter was found on the floor earlier this morning, assumed to be pulled out. He was discharged from [facility] by Dr. Faria earlier today with a diagnosis of sepsis secondary to probable UTI with urinary retention. He comes to the ED for a replacement ramirez catheter. He has no other complaints. - History of Current Complaint Chief Complaint: EDUrogenitalProblems Time Seen by Provider: 05/21/16 05:03 Stated Complaint: CATH PULLED OUT Hx Obtained From: Patient, EMS Onset/Duration: Started Hours Ago, Still Present Timing: Constant Severity: Moderate Current Severity: Moderate Pain Intensity: 0 Associated Signs and Symptoms: Positive: Negative Aggravating Factor(s): Nothing Alleviating Factor(s): Nothing - Additional Pertinent History Primary Care Physician: BLAS - Allergy/Home Medications Allergies/Adverse Reactions: Allergies Allergy/AdvReac Type Severity Reaction Status Date / Time No Known Allergies Allergy Verified 04/14/15 02:01 PMH/Surg Hx/FS Hx/Imm Hx Endocrine/Hematology History: Denies: Hx Diabetes Cardiovascular History: Reports: Hx Hypertension Denies: Hx Pacemaker/ICD Respiratory History: Reports: Hx Asthma, Hx Chronic Obstructive Pulmonary Disease (COPD), Hx Pulmonary Edema History: Denies: Hx Renal Disease Musculoskeletal History: Reports: Hx Arthritis Sensory History: Reports: Hx Contacts or Glasses Denies: Hx Hearing Aid Opthamlomology History: Reports: Hx Contacts or Glasses Neurological History: Reports: Hx Dementia, Hx Transient Ischemic Attacks (TIA) Psychiatric History: Denies: Hx Panic Disorder - Immunization History Date of Tetanus Vaccine: unknown Infectious Disease History: No Infectious Disease History: Denies: Traveled Outside the US in Last 30 Days - Family History Known Family History: Positive: Cardiac Disease - father - [place] at 52 - Social History Alcohol Use: unable to confirm Hx Substance Use: No Substance Use Type: Reports: None Hx Tobacco Use: Yes Smoking Status (MU): Former Smoker Type: Cigarettes Review of Systems Negative: Fever Positive: other - ramirez cath removed All Other Systems Reviewed And Are Negative: Yes Physical Exam Triage Information Reviewed: Yes Vital Signs On Initial Exam: Initial Vitals Temp Pulse Resp BP Pulse Ox 97.5 F 96 20 143/83 95 05/21/16 05:03 05/21/16 05:03 05/21/16 05:03 05/21/16 05:03 05/21/16 05:03 Vital Signs Reviewed: Yes Completion Of Physical Exam Limited Due To: Dementia Appearance: Positive: Well-Appearing, No Pain Distress Skin: Positive: Warm ENT: Positive: Hearing grossly normal Respiratory/Lung Sounds: Positive: Breath Sounds Present Abdomen Description: Positive: Nontender, Soft Bowel Sounds: Positive: Present Male Genital Exam: Positive: bleeding - from urethra AVPU Assessment: Alert Diagnostics - Vital Signs Vital Signs Temp Pulse Resp BP Pulse Ox 05/21/16 05:03 97.5 F 96 20 143/83 95 - Laboratory Lab Statement: Any lab studies that have been ordered have been reviewed, and results considered in the medical decision making process. Re-Evaluation - Re-Evaluation First Eval Change: Improved - ramirez catheter replaced without complication, draining blood tinged urine GIGU Course/Dx - Diagnoses Provider Diagnoses: Urinary retention Discharge - Discharge Plan Condition: Stable Disposition: HOME Patient Education Materials: Urinary Retention in Men (ED) Referrals: Saul Contreras MD [Primary Care Provider] - The documentation as recorded by the Felipe green Billy accurately reflects the service I personally performed and the decisions made by , Charlie Tejeda MD.
== END 2016-05-21 05:38 | disposition home or self-care (01) ==
LOC: ED 05:02
DX: R33.9 Retention of urine, unspecified (principal); Z87.891 Personal history of nicotine dependence
CPT/HCPCS: 99283

== ENCOUNTER 2016-07-02 15:29 | Inpatient (IN) | payer MEDICARE ==
[2016-07-02] MEDS ORDERED: NS 0.9% 1000 ML* 1,000 ML IV SCH (16:30)
[2016-07-02 16:36] LABS: Hematocrit 42 % (42-52); Hemoglobin 12.9 g/dl (14.0-18.0); Mean Corpuscular HGB Conc 31 g/dl (31-36); Mean Corpuscular Hemoglobin 26 pg (27-31); Mean Corpuscular Volume 85 fL (80-94); Mean Platelet Volume 10 um3 (7.4-10.4); Red Blood Count 4.96 10^6/ul (4.0-5.4); Red Cell Distribution Width 16 % (10.5-15); White Blood Count 5.4 10^3/ul (3.5-10.8)
[2016-07-02 16:39] LABS: Comments Flag Yes
[2016-07-02 16:40] LABS: Ammonia 26 mol/L (16-53)
[2016-07-02 16:42] LABS: Albumin 3.7 g/dL (3.2-5.2); BUN/Creatinine Ratio 21.1 (8-20); C Reactive Protein 21.43 mg/L (< 5.00); Calcium 9.1 mg/dL (8.6-10.3); EGFR African American 65.6 (>60); Globulin 3.5 g/dL (2-4); Magnesium 1.9 mg/dL (1.9-2.7); Potassium 3.8 mmol/L (3.5-5.0); Total Bilirubin 0.5 mg/dL (0.2-1.0); Total Protein 7.2 g/dL (6.4-8.9)
[2016-07-02 16:46] LABS: B Type Natriuretic Peptide 350 pg/mL
[2016-07-02 16:48] LABS: Troponin I 0.05 ng/mL (<0.04)
[2016-07-02 16:54] LABS: TSH (Thyroid Stimulating Horm) 1.8 mcIU/mL (0.34-5.60)
--- NOTE | 2016-07-02 16:56 | RAD ---
HISTORY: Altered mental status COMPARISONS: May 16, 2016 VIEWS:1: Single frontal portable view of the chest at 4:33 PM FINDINGS: LINES AND TUBES: None. CARDIOMEDIASTINAL SILHOUETTE: The cardiomediastinal silhouette is normal for portable technique. PLEURA: The costophrenic angles are sharp. No pleural abnormalities are noted. LUNG PARENCHYMA: The lungs are clear. ABDOMEN: The upper abdomen is clear. There is no subphrenic gas. BONES AND SOFT TISSUES: No bone or soft tissue abnormalities are noted. IMPRESSION: NO ACTIVE CARDIOPULMONARY DISEASE.
[2016-07-02] MEDS ORDERED: Albuterol/Ipratropium NEB.SOL* Albuterol 2.5 MG/Ipratropium 0.5 MG 3 ML INH ONE (17:05)
[2016-07-02] MEDS ORDERED: oxyCODONE/Acetamin 5/325 MG* TAB PO PRN (17:09)
[2016-07-02 17:44] LABS: Urine Bacteria Absent (Absent); Urine Bilirubin Negative (Negative); Urine Glucose Negative (Negative); Urine Nitrite Negative (Negative)
[2016-07-02] MEDS ORDERED: NS 0.9% 1000 ML* 1,000 ML IV ONE (19:29)
[2016-07-02] MEDS ORDERED: Levofloxacin 750 MG IVPREMIX(* 750 MG/150 ML BAG IVPB ONE (19:29)
[2016-07-02] MEDS ORDERED: Acetaminophen TAB* 325 MG PO PRN (20:27)
[2016-07-02] MEDS ORDERED: cefTRIAXone(*) 1 GM ADVAN/BAG ONE (20:48)
[2016-07-02] MEDS: cefTRIAXone VIAL(*) 1,000 MG in NS 0.9% 50 ML* 50 ML IVPB SCH (20:53)
[2016-07-02] MEDS: NS 0.9% 1000 ML* 1,000 ML IV SCH (22:37)
[2016-07-02] MEDS: Warfarin TAB(*) 1 MG PO SCH (22:39)
--- NOTE | 2016-07-02 22:45 | ED ---
Ann Govea Matthew, scribed for Miguel Tony MD on 07/02/16 at 1837 . Shortness of Breath - HPI Summary HPI Summary: An 86 y/o male presents to the ED with SOB and altered mental status per rolanree since today. The son states the patient appears near baseline. Associated symptoms include productive cough. He has a recent history of sepsis and presented to the ED approximately a month ago. The patient also has a Hyman Catheter in place, which has been in place for 5 weeks and was suppose to be changed at week 4; however, the son is unsure if this was done. Per the son, the patient seemed mildly fatigued yesterday. - History of Current Complaint Chief Complaint: EDGeneral Time Seen by Provider: 07/02/16 16:32 Hx Obtained From: Patient Onset/Duration: Still Present Timing: Constant Current Severity: Moderate Dyspnea At: Rest Associated Signs & Symptoms: Cough (Productive) - Allergy/Home Medications Allergies/Adverse Reactions: Allergies Allergy/AdvReac Type Severity Reaction Status Date / Time No Known Allergies Allergy Verified 04/14/15 02:01 Home Medications: Home Medications Terazosin HCl 10 mg PO BID 07/02/16 [History Confirmed 07/02/16] PMH/Surg Hx/FS Hx/Imm Hx Endocrine/Hematology History: Denies: Hx Diabetes Cardiovascular History: Reports: Hx Hypertension Denies: Hx Pacemaker/ICD Respiratory History: Reports: Hx Asthma, Hx Chronic Obstructive Pulmonary Disease (COPD), Hx Pulmonary Edema History: Denies: Hx Renal Disease Musculoskeletal History: Reports: Hx Arthritis Sensory History: Reports: Hx Contacts or Glasses Denies: Hx Hearing Aid Opthamlomology History: Reports: Hx Contacts or Glasses Neurological History: Reports: Hx Dementia, Hx Transient Ischemic Attacks (TIA) Psychiatric History: Denies: Hx Panic Disorder - Immunization History Date of Tetanus Vaccine: unknown Infectious Disease History: Unable to Obtain/Confirm Infectious Disease History: Denies: Traveled Outside the US in Last 30 Days - pt not able to answer - Family History Known Family History: Positive: Cardiac Disease - father - [place] at 52 - Social History Alcohol Use: unknown Hx Substance Use: No Substance Use Type: Reports: None Hx Tobacco Use: Yes Smoking Status (MU): Former Smoker Type: Cigarettes Review of Systems Constitutional: Negative Eyes: Negative ENT: Negative Cardiovascular: Negative Positive: Shortness Of Breath, Cough Gastrointestinal: Negative Genitourinary: Negative Musculoskeletal: Negative Skin: Negative Neurological: Negative Psychological: Other - Altered mental status All Other Systems Reviewed And Are Negative: Yes Physical Exam Triage Information Reviewed: Yes Vital Signs On Initial Exam: Initial Vitals Temp Pulse Resp BP Pulse Ox 99.6 F 110 27 147/90 93 07/02/16 15:39 07/02/16 15:39 07/02/16 15:39 07/02/16 15:39 07/02/16 15:39 Vital Signs Reviewed: Yes Appearance: Positive: No Pain Distress Skin: Positive: Warm, Dry Head/Face: Positive: Normal Head/Face Inspection Eyes: Positive: Normal ENT: Positive: Normal ENT inspection Respiratory/Lung Sounds: Positive: Breath Sounds Present, Wheezes - Diffuse, Other - Productive Cough Cardiovascular: Positive: Tachycardia Abdomen Description: Positive: Nontender, Soft Bowel Sounds: Positive: Present Musculoskeletal: Positive: Other - minimal bilateral peripheral edema Neurological: Positive: Normal Psychiatric: Positive: Normal, Affect/Mood Appropriate - Laurence Coma Scale Coma Scale Total: 15 Diagnostics - Vital Signs Vital Signs Temp Pulse Resp BP Pulse Ox 07/02/16 16:30 102 26 134/62 98 07/02/16 16:00 106 23 142/128 98 07/02/16 15:45 106 23 98 07/02/16 15:43 98.3 F 147/97 07/02/16 15:39 99.6 F 110 27 147/90 93 - Laboratory Lab Results: Lab Results 07/02/16 07/02/16 07/02/16 Range/Units 15:45 15:45 15:45 WBC 5.4 (3.5-10.8) 10^3/ul RBC 4.96 (4.0-5.4) 10^6/ul Hgb 12.9 L (14.0-18.0) g/dl Hct 42 (42-52) % MCV 85 (80-94) fL MCH 26 L (27-31) pg MCHC 31 (31-36) g/dl RDW 16 H (10.5-15) % Plt Count 136 L (150-450) 10^3/ul MPV 10 (7.4-10.4) um3 Neut % (Auto) 78.3 (38-83) % Lymph % (Auto) 7.1 L (25-47) % [place] % (Auto) 12.5 H (1-9) % Eos % (Auto) 1.2 (0-6) % Baso % (Auto) 0.9 (0-2) % Absolute Neuts (auto) 4.2 (1.5-7.7) 10^3/ul Absolute Lymphs (auto) 0.4 L (1.0-4.8) 10^3/ul Absolute Monos (auto) 0.7 (0-0.8) 10^3/ul Absolute Eos (auto) 0.1 (0-0.6) 10^3/ul Absolute Basos (auto) 0 (0-0.2) 10^3/ul Absolute Nucleated RBC 0.01 10^3/ul Nucleated RBC % 0.1 INR (Anticoag Therapy) 1.92 H (0.89-1.11) APTT 31.8 (26.0-36.3) seconds D-Dimer, Quantitative 215 (Less Than 230) ng/mL Sodium 137 (133-145) mmol/L Potassium 3.8 (3.5-5.0) mmol/L Chloride 102 (101-111) mmol/L Carbon Dioxide 29 (22-32) mmol/L Anion Gap 6 (2-11) mmol/L BUN 28 H (6-24) mg/dL Creatinine 1.33 H (0.67-1.17) mg/dL Est GFR ( Amer) 65.6 (>60) Est GFR (Non-Af Amer) 51.0 (>60) BUN/Creatinine Ratio 21.1 H (8-20) Glucose 197 H (70-100) mg/dL Lactic Acid (0.5-2.0) mmol/L Calcium 9.1 (8.6-10.3) mg/dL Magnesium 1.9 (1.9-2.7) mg/dL Total Bilirubin 0.50 (0.2-1.0) mg/dL AST 26 (13-39) U/L ALT 15 (7-52) U/L Alkaline Phosphatase 72 (34-104) U/L Ammonia (16-53) mol/L Total Creatine Kinase 124 (10-223) U/L CK-MB (CK-2) 4.0 (0.6-6.3) ng/mL Troponin I 0.05 H* (<0.04) ng/mL C-Reactive Protein 21.43 H (< 5.00) mg/L B-Natriuretic Peptide ( - 100) pg/mL Total Protein 7.2 (6.4-8.9) g/dL Albumin 3.7 (3.2-5.2) g/dL Globulin 3.5 (2-4) g/dL Albumin/Globulin Ratio 1.1 (1-3) Lipase 30 (11.0-82.0) U/L TSH Pending 07/02/16 07/02/16 Range/Units 15:45 15:45 WBC (3.5-10.8) 10^3/ul RBC (4.0-5.4) 10^6/ul Hgb (14.0-18.0) g/dl Hct (42-52) % MCV (80-94) fL MCH (27-31) pg MCHC (31-36) g/dl RDW (10.5-15) % Plt Count (150-450) 10^3/ul MPV (7.4-10.4) um3 Neut % (Auto) (38-83) % Lymph % (Auto) (25-47) % [place] % (Auto) (1-9) % Eos % (Auto) (0-6) % Baso % (Auto) (0-2) % Absolute Neuts (auto) (1.5-7.7) 10^3/ul Absolute Lymphs (auto) (1.0-4.8) 10^3/ul Absolute Monos (auto) (0-0.8) 10^3/ul Absolute Eos (auto) (0-0.6) 10^3/ul Absolute Basos (auto) (0-0.2) 10^3/ul Absolute Nucleated RBC 10^3/ul Nucleated RBC % INR (Anticoag Therapy) (0.89-1.11) APTT (26.0-36.3) seconds D-Dimer, Quantitative (Less Than 230) ng/mL Sodium (133-145) mmol/L Potassium (3.5-5.0) mmol/L Chloride (101-111) mmol/L Carbon Dioxide (22-32) mmol/L Anion Gap (2-11) mmol/L BUN (6-24) mg/dL Creatinine (0.67-1.17) mg/dL Est GFR ( Amer) (>60) Est GFR (Non-Af Amer) (>60) BUN/Creatinine Ratio (8-20) Glucose (70-100) mg/dL Lactic Acid 1.5 (0.5-2.0) mmol/L Calcium (8.6-10.3) mg/dL Magnesium (1.9-2.7) mg/dL Total Bilirubin (0.2-1.0) mg/dL AST (13-39) U/L ALT (7-52) U/L Alkaline Phosphatase (34-104) U/L Ammonia 26 (16-53) mol/L Total Creatine Kinase (10-223) U/L CK-MB (CK-2) (0.6-6.3) ng/mL Troponin I (<0.04) ng/mL C-Reactive Protein (< 5.00) mg/L B-Natriuretic Peptide 350 H ( - 100) pg/mL Total Protein (6.4-8.9) g/dL Albumin (3.2-5.2) g/dL Globulin (2-4) g/dL Albumin/Globulin Ratio (1-3) Lipase (11.0-82.0) U/L TSH Result Diagrams: 07/02/16 15:45 07/02/16 15:45 Lab Statement: Any lab studies that have been ordered have been reviewed, and results considered in the medical decision making process. - Radiology CXR Xray Interpretation: No Acute Changes - IMPRESSION: NO ACTIVE CARDIOPULMONARY DISEASE. Radiology Interpretation Completed By: Radiologist Course/Dx - Course Assessment/Plan: An 86 y/o male presents to the ED with SOB and AMS. [facility] sent the patient, because he was exhibiting some AMS; however the son states that patient seem nearly at baseline. Labs were reviewed. CXR shows no acute cardiopulmonary disease. His urine looks infected and he was treated with fluids and antibiotics. Discussed the case with Dr. Faria who will admit the patient for further management. - Diagnoses Provider Diagnoses: UTI (urinary tract infection), Sepsis - Physician Notifications Discussed Care of Patient With: Dr. Faria (Hospitalist) -- Notified of patient' s history and will admit the patient. Discharge - Discharge Plan Condition: Stable Disposition: ADMITTED TO [facility] The documentation as recorded by the mitchellibAnn salas Matthew accurately reflects the service I personally performed and the decisions made by me, Miguel Tony MD.
[2016-07-02] MEDS: Terazosin CAP* 5 MG PO SCH (23:22)
[2016-07-03] MEDS: Albuterol/Ipratropium RESP(NF) MDI (Combivent Respimat) INH SCH ×3 (00:26→20:42)
--- NOTE | 2016-07-03 00:51 | HP ---
HISTORY AND PHYSICAL: DATE OF ADMISSION: 07/02/16 CHIEF COMPLAINT: Confusion, weakness. HISTORY OF PRESENT ILLNESS: The patient is an 86-year-old gentleman, who is a resident of [facility] and was sent over because he "seemed to be out of it." Please note the entire history is given by his son as the patient is too confused. Apparently, he had some trouble breathing there as well. He was not eating well. He was sent to the emergency room. His son says it is very similar to how he was about 5 weeks ago when he was admitted to the hospital at that time. He does not know if there was a fever at the [facility]. His temperature here was under 100. They did take him out once yesterday and although he was not sick, he did not seem his usual self. He was somewhat weaker and his appetite was not great. e also notes that he seems to be wheezing somewhat more and does not normally wear oxygen at home. Interestingly , they say he does not get nebulizers there, but only gets inhalers and does have trouble coordinating their use. They also note the visiting nurse services are supposed to come and change his Hyman every month, but they are not sure if that has been done. In the ED, the patient was evaluated and appears to have urinary tract infection and placed on analysis. PAST MEDICAL HISTORY: Significant for hypertension, atrial fibrillation, pulmonary edema, hyperlipidemia, COPD, CVA x2, BPH, and obstructive sleep apnea. PAST SURGICAL HISTORY: He has no significant past surgical history. CURRENT MEDICATIONS: As follows: 1. Terazosin 10 mg twice daily. 2. Warfarin 2.5 mg daily. 3. Simvastatin 20 mg twice daily. 4. Potassium chloride 20 mEq daily. 5. Multivitamin 1 tablet daily. 6. Miscellaneous natural products for prostate 3 capsules daily. 7. Metoprolol succinate 50 mg daily. 8. Ipratropium bromide 0.06% both nares twice daily. 9. Furosemide 20 mg in the morning. 10. Aspirin 81 mg daily. 11. Albuterol 1 puff twice daily. ALLERGIES: No known drug allergies. FAMILY HISTORY: According to the patient's son, mother lived up to age 83, father had heart attack in the 60s. SOCIAL HISTORY: Ex-tobacco, quit 35 years ago. Smoked for about 30 years. No alcohol or recreational drug use. He is a resident at [facility]. His son, Yvette Slaughter, is his healthcare proxy. REVIEW OF SYSTEMS: Unable to obtain from the patient as he is too confused. PHYSICAL EXAMINATION GENERAL: A pleasant gentleman lying in bed, in no acute distress. VITAL SIGNS: Heart rate 109, respiratory rate 22 breaths per minute, pulse ox 93%, blood pressure 104/62, T-max is 99.6%. HEENT: Normocephalic and atraumatic. Pupils are equal, round, and reactive to light. Moist mucous membranes. NECK: Supple. No JVD, bruits, palpable thyroid or lymphadenopathy. CHEST: He got some minimal rhonchi, but no wheezing. CARDIOVASCULAR: S1, S2 appreciated. ABDOMEN: Positive bowel sounds in all 4 quadrants. Soft, nontender, and nondistended. EXTREMITIES: No cyanosis, clubbing. He has got minimal edema. +2 peripheral pulses bilaterally. NEURO: Alert and oriented x1. Moves all extremities. SKIN: No rashes or abnormalities. DIAGNOSTIC STUDIES/LAB DATA: His white count is 5.4, hemoglobin 12.9, hematocrit 42, platelets 136. Sodium 137, potassium 3.8, chloride 102, CO2 29, BUN 28, creatinine 1.33, glucose is 197. Troponin 0.05. His BNP is 350. INR 1.92. Urinalysis +3 white cells, +3 leukocyte esterase, +3 rbc's. His chest x-ray was interpreted by Radiology as no active cardiopulmonary disease. ASSESSMENT AND PLAN: 1. Sepsis secondary to urinary tract infection. Place the patient on Rocephin 1 g IV q. day, gentle hydration, normal saline 75 cc daily, hold his Lasix for now. Await urine cultures and sensitivity. 2. Chronic obstructive pulmonary disease. He was wheezing and received nebulizer treatment. Apparently, does not get nebulizers where he lives, and most likely, with his confusion, there is trouble coordinating the inhaler. I strongly recommend this patient gets nebulizer treatments at his [facility] facility which would help his breathing dramatically. 3. Hypertension. Blood pressure well controlled. Continue current regimen for now. I am also concerned that he is on terazosin twice daily which can make him somewhat dizzy. This should be looked in to as well. 4. Atrial fibrillation. Heart rate is currently somewhat high but likely from sepsis. Should improve with hydration and antibiotic therapy. Continue Coumadin. He is somewhat subtherapeutic with 1.92 INR. 5. FEN. Regular diet. 6. DVT prophylaxis. He is on Coumadin. 7. The patient is a do not resuscitate. TIME SPENT: Over 75 minutes was spent on this H and P; more than 40 minutes of which was spent in direct [id number] contact with the patient in evaluation, physical exam, counseling, and coordination of care. CC: Dr. Contreras * [id number]/[facility] #: [id number] MANN
[2016-07-03] MEDS: Albuterol/Ipratropium NEB.SOL* Albuterol 2.5 MG/Ipratropium 0.5 MG 3 ML INH SCH ×3 (07:36→22:10)
[2016-07-03] MEDS: Metoprolol Succinate XL TAB* 50 MG PO SCH (08:02)
[2016-07-03] MEDS: Terazosin CAP* 5 MG PO SCH ×2 (08:02→20:41)
[2016-07-03] MEDS: Prenatal Vitamin TAB PO SCH (08:02)
[2016-07-03] MEDS: Potassium Chlor TAB* 20 MEQ TAB.ER PO SCH (08:02)
[2016-07-03] MEDS: Atorvastatin* 10 MG TAB PO SCH (08:03)
[2016-07-03] MEDS: Aspirin Low Dose CHEW TAB* 81 MG PO SCH (08:03)
[2016-07-03] MEDS: IPRATROPIUM BROMIDE 0.06% BOTH NARES SCH ×2 (08:04→17:38)
--- NOTE | 2016-07-03 11:16 | PN ---
Subjective Date of Service: 07/03/16 Interval History: Patient seen and examined at bedside. Pt denies fever, chills, shortness of breath, chest discomfort, N/V/D. Pt's son reports that his father's breathing is at his baseline, he usually has some wheezing. Pt is able to get to a wheelchair and self propel to get around at baseline. Family History: Unchanged from Admission Social History: Unchanged from Admission Past Medical History: Unchanged from Admission Objective Active Medications: Acetaminophen (Tylenol Tab*) 650 mg PO Q4H PRN Reason: FEVER/PAIN Albuterol/Ipratropium (Combivent Respimat(Nf)) 1 puff INH BID SHIELA Albuterol/Ipratropium (Duoneb Neb.Ada*) 1 neb INH [id number] AWAKE [facility] Aspirin (Aspirin Low Dose Tab*) 81 mg PO DAILY [facility] Atorvastatin Calcium (Lipitor*) 10 mg PO DAILY [facility] Sodium Chloride (Ns 0.9% 1000 Ml*) 1,000 mls @ 75 mls/hr IV PER RATE [facility] Ceftriaxone Sodium 1,000 mg/ (Sodium Chloride) 50 mls @ 200 mls/hr IVPB Q24H [facility] Metoprolol Succinate (Toprol Xl Tab*) 50 mg PO DAILY [facility] Multivitamins ( Vitamin Tab*) 1 tab PO DAILY [facility] Ipratropium [place] (Nasal) [Ipratropium [place]] 0.06 % 0.06 % BOTH NARES BID AC [facility] Pharmacy Profile Note (Coumadin Daily Reminder*) 1 note FOLLOW UP 1700 [facility] Potassium Chloride (Klor Con Er Tab*) 20 meq PO DAILY WITH MEAL [facility] Terazosin HCl (Hytrin Cap*) 10 mg PO BID SHIELA Warfarin Sodium (Coumadin Tab(*)) 3.5 mg PO DAILY@1700 [facility] Vital Signs 07/02/16 07/02/16 07/02/16 20:30 21:00 21:31 Temperature Pulse Rate 115 118 134 Respiratory 23 22 22 Rate Blood Pressure 143/88 101/54 (mmHg) O2 Sat by Pulse 97 95 91 Oximetry 07/02/16 07/02/16 07/02/16 22:00 22:38 23:33 Temperature 100.3 F 100.3 F Pulse Rate 112 172 113 Respiratory 23 22 22 Rate Blood Pressure 138/105 152/80 152/80 (mmHg) O2 Sat by Pulse 97 97 Oximetry 07/02/16 07/02/16 07/03/16 23:34 23:47 03:46 Temperature 98.4 F 99.2 F Pulse Rate 103 109 Respiratory 22 22 24 Rate Blood Pressure 132/72 135/78 (mmHg) O2 Sat by Pulse 98 96 Oximetry 07/03/16 07/03/16 07:38 08:26 Temperature Pulse Rate 103 Respiratory 20 22 Rate Blood Pressure (mmHg) O2 Sat by Pulse 97 Oximetry Oxygen Devices in Use Now: Nasal Cannula - 2L Appearance: NAD, laying in bed Eyes: No Scleral Icterus, PERRLA Ears/Nose/Mouth/Throat: NL Teeth, Lips, Gums, Mucous Membranes Moist Neck: NL Appearance and Movements; NL JVP, Trachea Midline Respiratory: Symmetrical Chest Expansion and Respiratory Effort, - - Lung sounds with expiratory wheeze Cardiovascular: - - Heart rate irregular Extremities: - - Trace bilateral LE edema Skin: No Rash or Ulcers Neurological: NL Muscle Strength and Tone, - - Alert and Oriented to Person Lines/Tubes/Other Access: Clean, Dry and Intact Peripheral IV - site benign Nutrition: Taking PO's Result Diagrams: 07/02/16 15:45 07/02/16 15:45 Additional Lab and Data: Microbiology and Other Data: Microbiology 07/02/16 23:00 Nasal Screen MRSA (PCR)(RICHARD) - Final Nasal Mrsa Negative Assess/Plan/Problems-Billing Assessment: Mt. Slaughter is an 86 yo male with PMH HTN, afib, pulmonary edema, HLD, COPD, BPH, CVA, and ANTIONETTE who presented to the emergency room with trouble breathing, and not eating well who was found to have a possible UTI. - Patient Problems (1) Sepsis Comment: - Suspect secondary to UTI - He was meeting SIRS criteria on admission with tachycardia, tachypnea, fever. Meeting 2 qSOFA indicators on admission - Cultures pending - Meeting SIRS criteria with tachycardia and tacypnea and SOFA score of 2 (2) Urinary tract infection Comment: - Cultures pending - Creatinine is elevated, but appears to be near baseline - Continue ceftriaxone - Continue ramirez catheter until seen by urology outpatient (3) COPD (chronic obstructive pulmonary disease) Code(s): J44.9 - CHRONIC OBSTRUCTIVE PULMONARY DISEASE, UNSPECIFIED SNOMED Code(s): 83331601 Comment: - Wheezing on exam - Continue Nebs and home inhalers - May benefit from nebs at home instead of inhalers (4) Afib Code(s): I48.91 - UNSPECIFIED ATRIAL FIBRILLATION SNOMED Code(s): 42038721 Comment: - HR controlled - Continue Metoprolol and Warfarin (5) HTN (hypertension) Code(s): I10 - ESSENTIAL (PRIMARY) HYPERTENSION SNOMED Code(s): 77737254 Comment: - Controlled, SBP 90-150's - Continue Terazosin, and Meroprolol (6) Elevated troponin Code(s): R79.89 - OTHER SPECIFIED ABNORMAL FINDINGS OF BLOOD CHEMISTRY SNOMED Code(s): 239012347 Comment: - Likely demand ischemia. - No c/o chest pain at this time. - Would not pursue any further cardiac work up at this time. (7) DVT prophylaxis Code(s): VAP9920 - SNOMED Code(s): 510529416 Comment: - Continue Warfarin (8) DNR (do not resuscitate) Status and Disposition: Inpatient. Discharge back to [place] [facility] when medically stable.
[2016-07-03] MEDS: Warfarin TAB(*) 1 MG PO SCH (17:50)
[2016-07-03] MEDS: NS 0.9% 1000 ML* 1,000 ML IV SCH (17:59)
[2016-07-03] MEDS: cefTRIAXone VIAL(*) 1,000 MG in NS 0.9% 50 ML* 50 ML IVPB SCH (20:42)
[2016-07-04] MEDS: Albuterol/Ipratropium NEB.SOL* Albuterol 2.5 MG/Ipratropium 0.5 MG 3 ML INH SCH ×4 (01:23→20:20)
[2016-07-04 06:37] LABS: BUN/Creatinine Ratio 18.4 (8-20); Calcium 8.6 mg/dL (8.6-10.3); EGFR African American 78.3 (>60); EGFR Non-African American 60.9 (>60); Potassium 3.8 mmol/L (3.5-5.0)
[2016-07-04] MEDS: NS 0.9% 1000 ML* 1,000 ML IV SCH (09:15)
[2016-07-04] MEDS: IPRATROPIUM BROMIDE 0.06% BOTH NARES SCH ×2 (10:33→16:24)
[2016-07-04] MEDS: Prenatal Vitamin TAB PO SCH (10:35)
[2016-07-04] MEDS: Terazosin CAP* 5 MG PO SCH ×2 (10:35→20:53)
[2016-07-04] MEDS: Potassium Chlor TAB* 20 MEQ TAB.ER PO SCH (10:38)
[2016-07-04] MEDS: Atorvastatin* 10 MG TAB PO SCH (10:38)
[2016-07-04] MEDS: Metoprolol Succinate XL TAB* 50 MG PO SCH (10:38)
[2016-07-04] MEDS: Aspirin Low Dose CHEW TAB* 81 MG PO SCH (10:38)
--- NOTE | 2016-07-04 14:23 | PN ---
Subjective Date of Service: 07/04/16 Interval History: Patient seen and examined at bedside. Pt states that his breathing feels much better today. Pt was able to get up to a wheelchair, this is his baseline. Pt has been weaned off oxygen with O2 sats in the mid 90's. Denies fever, chills, shortness of breath, chest discomfort, N/V/D. Pt's son reports that his dad had been on home oxygen in the past, but declined to use it. Family History: Unchanged from Admission Social History: Unchanged from Admission Past Medical History: Unchanged from Admission Objective Active Medications: Acetaminophen (Tylenol Tab*) 650 mg PO Q4H PRN Reason: FEVER/PAIN Albuterol/Ipratropium (Duoneb Neb.Ada*) 1 neb INH [id number] AWAKE [facility] Aspirin (Aspirin Low Dose Tab*) 81 mg PO DAILY [facility] Atorvastatin Calcium (Lipitor*) 10 mg PO DAILY [facility] Sodium Chloride (Ns 0.9% 1000 Ml*) 1,000 mls @ 75 mls/hr IV PER RATE [facility] Ceftriaxone Sodium 1,000 mg/ (Sodium Chloride) 50 mls @ 200 mls/hr IVPB Q24H [facility] Metoprolol Succinate (Toprol Xl Tab*) 50 mg PO DAILY [facility] Multivitamins ( Vitamin Tab*) 1 tab PO DAILY [facility] Ipratropium [place] (Nasal) [Ipratropium [place]] 0.06 % 0.06 % BOTH NARES BID AC [facility] Pharmacy Profile Note (Coumadin Daily Reminder*) 1 note FOLLOW UP 1700 [facility] Potassium Chloride (Klor Con Er Tab*) 20 meq PO DAILY WITH MEAL [facility] Terazosin HCl (Hytrin Cap*) 10 mg PO BID [facility] Warfarin Sodium (Coumadin Tab(*)) 3.5 mg PO DAILY@1700 [facility] Reason: Protocol Vital Signs 07/03/16 07/03/16 07/03/16 15:50 20:00 22:10 Temperature 98.2 F Pulse Rate 102 92 Respiratory 20 20 20 Rate Blood Pressure 140/76 (mmHg) O2 Sat by Pulse 95 98 Oximetry 07/03/16 07/04/16 07/04/16 23:34 07:13 08:00 Temperature 98.0 F Pulse Rate 63 103 Respiratory 24 18 20 Rate Blood Pressure 133/82 142/73 (mmHg) O2 Sat by Pulse 94 98 Oximetry 07/04/16 08:12 Temperature Pulse Rate 90 Respiratory 20 Rate Blood Pressure (mmHg) O2 Sat by Pulse 95 Oximetry Oxygen Devices in Use Now: None Appearance: NAD, sitting up in bed Eyes: No Scleral Icterus, PERRLA Ears/Nose/Mouth/Throat: NL Teeth, Lips, Gums, Mucous Membranes Moist Neck: NL Appearance and Movements; NL JVP, Trachea Midline Respiratory: Symmetrical Chest Expansion and Respiratory Effort, - - Lung sounds with exp wheeze bilateral Cardiovascular: NL Sounds; No Murmurs; No JVD, RRR Abdominal: NL Sounds; No Tenderness; No Distention Extremities: No Edema Skin: No Rash or Ulcers Neurological: NL Muscle Strength and Tone, - - Alert and Oriented to Person and Place Lines/Tubes/Other Access: Clean, Dry and Intact Peripheral IV - site benign Nutrition: Taking PO's Result Diagrams: 07/02/16 15:45 07/04/16 05:56 Additional Lab and Data: Microbiology and Other Data: Microbiology 07/02/16 23:00 Nasal Screen MRSA (PCR)(RCIHARD) - Final Nasal Mrsa Negative Assess/Plan/Problems-Billing Assessment: Mt. Slaughter is an 86 yo male with PMH HTN, afib, pulmonary edema, HLD, COPD, BPH, CVA, and ANTIONETTE who presented to the emergency room with trouble breathing, and not eating well who was found to have a possible UTI. - Patient Problems (1) Sepsis Comment: - Suspect secondary to UTI - He was meeting SIRS criteria on admission with tachycardia, tachypnea, fever. Meeting 2 qSOFA indicators on admission - Urine Cultures negative, no growth - No longer meeting SIRS criteria, Sepsis resolved (2) Urinary tract infection Comment: - Urine culture no growth - Creatinine is elevated, but appears to be near baseline - Will stop ABX - Continue ramirez catheter until seen by urology outpatient (3) COPD (chronic obstructive pulmonary disease) Code(s): J44.9 - CHRONIC OBSTRUCTIVE PULMONARY DISEASE, UNSPECIFIED SNOMED Code(s): 54891304 Comment: - Wheezing on exam - Continue Nebs and home inhalers - May benefit from nebs at home instead of inhalers (4) Afib Code(s): I48.91 - UNSPECIFIED ATRIAL FIBRILLATION SNOMED Code(s): 53403956 Comment: - HR controlled - Continue Metoprolol and Warfarin (5) HTN (hypertension) Code(s): I10 - ESSENTIAL (PRIMARY) HYPERTENSION SNOMED Code(s): 49935155 Comment: - Controlled, SBP 130-150's - Continue Terazosin, and Meroprolol (6) Elevated troponin Code(s): R79.89 - OTHER SPECIFIED ABNORMAL FINDINGS OF BLOOD CHEMISTRY SNOMED Code(s): 053839240 Comment: - Likely demand ischemia. - No c/o chest pain at this time. - Would not pursue any further cardiac work up at this time. (7) DVT prophylaxis Code(s): SUG2553 - SNOMED Code(s): 978580566 Comment: - Continue Warfarin (8) DNR (do not resuscitate) Status and Disposition: Inpatient. Discharge back to [place] when medically stable.
[2016-07-04] MEDS: Warfarin TAB(*) 4 MG PO SCH (16:55)
[2016-07-04] MEDS: cefTRIAXone VIAL(*) 1,000 MG in NS 0.9% 50 ML* 50 ML IVPB SCH (20:48)
[2016-07-05] MEDS: Albuterol/Ipratropium NEB.SOL* Albuterol 2.5 MG/Ipratropium 0.5 MG 3 ML INH SCH ×4 (01:00→19:00)
[2016-07-05] MEDS: IPRATROPIUM BROMIDE 0.06% BOTH NARES SCH ×2 (08:37→14:43)
--- NOTE | 2016-07-05 09:52 | PN ---
Subjective Date of Service: 07/05/16 Interval History: Patient seen and examined at bedside. Pt with some lethargy this morning, Pt is sitting up in bed and joking with staff once awake. Denies fever, chills, shortness of breath, chest discomfort, N/V/D. Pt is noted to be febrile this AM. Family History: Unchanged from Admission Social History: Unchanged from Admission Past Medical History: Unchanged from Admission Objective Active Medications: Acetaminophen (Tylenol Tab*) 650 mg PO Q4H PRN Reason: FEVER/PAIN Albuterol/Ipratropium (Duoneb Neb.Ada*) 1 neb INH [id number] AWAKE [facility] Aspirin (Aspirin Low Dose Tab*) 81 mg PO DAILY [facility] Atorvastatin Calcium (Lipitor*) 10 mg PO DAILY [facility] Ceftriaxone Sodium 1,000 mg/ (Sodium Chloride) 50 mls @ 200 mls/hr IVPB Q24H [facility] Metoprolol Succinate (Toprol Xl Tab*) 50 mg PO DAILY [facility] Multivitamins ( Vitamin Tab*) 1 tab PO DAILY [facility] Ipratropium [place] (Nasal) [Ipratropium [place]] 0.06 % 0.06 % BOTH NARES BID AC [facility] Pharmacy Profile Note (Coumadin Daily Reminder*) 1 note FOLLOW UP 1700 [facility] Potassium Chloride (Klor Con Er Tab*) 20 meq PO DAILY WITH MEAL [facility] Terazosin HCl (Hytrin Cap*) 10 mg PO BID [facility] Warfarin Sodium (Coumadin Tab(*)) 4 mg PO DAILY@1700 [facility] Vital Signs 07/04/16 07/04/16 07/04/16 14:11 15:59 20:00 Temperature 99.3 F Pulse Rate 89 112 Respiratory 16 28 24 Rate Blood Pressure 142/88 (mmHg) O2 Sat by Pulse 90 92 Oximetry 07/04/16 07/04/16 07/04/16 20:20 21:08 21:28 Temperature 98.8 F Pulse Rate 100 139 110 Respiratory 20 Rate Blood Pressure 145/97 (mmHg) O2 Sat by Pulse 92 92 Oximetry 07/04/16 07/05/16 07/05/16 23:20 03:38 07:39 Temperature 99.7 F 97.9 F 102.6 F Pulse Rate 98 72 100 Respiratory 28 28 18 Rate Blood Pressure 137/80 154/88 151/97 (mmHg) O2 Sat by Pulse 97 87 97 Oximetry 07/05/16 07/05/16 07:40 07:46 Temperature 100.6 F Pulse Rate 121 94 Respiratory 19 Rate Blood Pressure (mmHg) O2 Sat by Pulse 97 98 Oximetry Oxygen Devices in Use Now: None Appearance: NAD, sitting up in bed Eyes: No Scleral Icterus, PERRLA Ears/Nose/Mouth/Throat: NL Teeth, Lips, Gums, Mucous Membranes Moist Neck: NL Appearance and Movements; NL JVP, Trachea Midline Respiratory: Symmetrical Chest Expansion and Respiratory Effort, - - Lung sounds with rhonchi and exp wheeze Cardiovascular: - - Heart rate irregular Abdominal: NL Sounds; No Tenderness; No Distention Extremities: - - Trace to +1 bilateral LE edema Skin: No Rash or Ulcers Neurological: NL Muscle Strength and Tone, - - Alert and Oriented to Person and Place Lines/Tubes/Other Access: Clean, Dry and Intact Peripheral IV - site benign Nutrition: Taking PO's Result Diagrams: 07/05/16 11:04 07/04/16 05:56 Additional Lab and Data: Microbiology and Other Data: Microbiology 07/02/16 23:00 Nasal Screen MRSA (PCR)(RICHARD) - Final Nasal Mrsa Negative Assess/Plan/Problems-Billing Assessment: Mt. Slaughter is an 86 yo male with PMH HTN, afib, pulmonary edema, HLD, COPD, BPH, CVA, and ANTIONETTE who presented to the emergency room with trouble breathing, and not eating well who was found to have a possible UTI. - Patient Problems (1) Sepsis Comment: - Unclear etiology - He was meeting SIRS criteria on admission with tachycardia, tachypnea, fever. Meeting 2 qSOFA indicators on admission - No leukocytosis - Urine Cultures negative, no growth - Meeting SIRS criteria this morning with tachycardia and fever (T max 102.6). SOFA score of 2 - Suspect this could be a virus - Will get blood cultures, chest xray, and check a CBC, procalcitonin, and flu swab (2) Urinary tract infection Comment: - Urine culture no growth - Creatinine is elevated, but appears to be near baseline - Will stop ABX - Continue ramirez catheter until seen by urology outpatient (3) COPD (chronic obstructive pulmonary disease) Code(s): J44.9 - CHRONIC OBSTRUCTIVE PULMONARY DISEASE, UNSPECIFIED SNOMED Code(s): 91649526 Comment: - Wheezing and Rhonchi on exam - Continue Nebs and home inhalers - May benefit from nebs at home instead of inhalers - Will check a chest xray - Suspect a COPD exacerbation - Start Steroids (4) Afib Code(s): I48.91 - UNSPECIFIED ATRIAL FIBRILLATION SNOMED Code(s): 34816170 Comment: - HR tachy at times - Continue Metoprolol and Warfarin (5) HTN (hypertension) Code(s): I10 - ESSENTIAL (PRIMARY) HYPERTENSION SNOMED Code(s): 93430696 Comment: - Controlled, SBP 130-150's - Continue Terazosin, and Meroprolol (6) Elevated troponin Code(s): R79.89 - OTHER SPECIFIED ABNORMAL FINDINGS OF BLOOD CHEMISTRY SNOMED Code(s): 551993267 Comment: - Likely demand ischemia. - No c/o chest pain at this time. - Would not pursue any further cardiac work up at this time. (7) DVT prophylaxis Code(s): EGB5631 - SNOMED Code(s): 497790421 Comment: - Continue Warfarin (8) DNR (do not resuscitate) Status and Disposition: Inpatient. Discharge back to [facility] when medically stable.
--- NOTE | 2016-07-05 10:16 | RAD ---
HISTORY: Sepsis, UTI COMPARISONS: July 02, 2016 VIEWS:1: Single frontal portable view of the chest at 9:55 AM FINDINGS: LINES AND TUBES: None. CARDIOMEDIASTINAL SILHOUETTE: The cardiomediastinal silhouette is normal for portable technique. PLEURA: The costophrenic angles are sharp. No pleural abnormalities are noted. LUNG PARENCHYMA: The lung volumes are low. There is minimal linear opacification of the right lung base ABDOMEN: The upper abdomen is clear. There is no subphrenic gas. BONES AND SOFT TISSUES: No bone or soft tissue abnormalities are noted. IMPRESSION: LOW LUNG VOLUMES WITH PLATELIKE ATELECTASIS OF THE RIGHT LUNG BASE
[2016-07-05] MEDS: Terazosin CAP* 5 MG PO SCH ×2 (10:20→21:50)
[2016-07-05] MEDS: Prenatal Vitamin TAB PO SCH (10:20)
[2016-07-05] MEDS: Atorvastatin* 10 MG TAB PO SCH (10:20)
[2016-07-05] MEDS: Metoprolol Succinate XL TAB* 50 MG PO SCH (10:20)
[2016-07-05] MEDS: Aspirin Low Dose CHEW TAB* 81 MG PO SCH (10:20)
[2016-07-05] MEDS: Potassium Chlor TAB* 20 MEQ TAB.ER PO SCH (10:20)
[2016-07-05 11:39] LABS: Hematocrit 39 % (42-52); Hemoglobin 12.3 g/dl (14.0-18.0); Mean Corpuscular HGB Conc 31 g/dl (31-36); Mean Corpuscular Hemoglobin 26 pg (27-31); Mean Corpuscular Volume 84 fL (80-94); Mean Platelet Volume 9 um3 (7.4-10.4); Red Blood Count 4.68 10^6/ul (4.0-5.4); Red Cell Distribution Width 16 % (10.5-15); White Blood Count 6.3 10^3/ul (3.5-10.8)
[2016-07-05] MEDS: NS 0.9% 1000 ML* 1,000 ML IV SCH (11:48)
[2016-07-05] MEDS: Oseltamivir CAP* 30 MG CAP PO SCH (14:40)
[2016-07-05] MEDS: Warfarin TAB(*) 4 MG PO SCH (17:50)
[2016-07-06] MEDS: Albuterol/Ipratropium NEB.SOL* Albuterol 2.5 MG/Ipratropium 0.5 MG 3 ML INH SCH ×4 (01:00→19:50)
[2016-07-06 06:28] LABS: Hematocrit 38 % (42-52); Mean Corpuscular HGB Conc 31 g/dl (31-36); Mean Corpuscular Hemoglobin 26 pg (27-31); Mean Corpuscular Volume 84 fL (80-94); Mean Platelet Volume 10 um3 (7.4-10.4); Red Blood Count 4.56 10^6/ul (4.0-5.4); Red Cell Distribution Width 16 % (10.5-15); White Blood Count 6.4 10^3/ul (3.5-10.8)
[2016-07-06] MEDS: Prenatal Vitamin TAB PO SCH (07:57)
[2016-07-06] MEDS: Potassium Chlor TAB* 20 MEQ TAB.ER PO SCH (07:57)
[2016-07-06] MEDS: Oseltamivir CAP* 30 MG CAP PO SCH ×2 (07:58→20:59)
[2016-07-06] MEDS: Metoprolol Succinate XL TAB* 50 MG PO SCH (07:58)
[2016-07-06] MEDS: Atorvastatin* 10 MG TAB PO SCH (07:58)
[2016-07-06] MEDS: Aspirin Low Dose CHEW TAB* 81 MG PO SCH (07:58)
[2016-07-06] MEDS: Terazosin CAP* 5 MG PO SCH ×2 (07:58→20:59)
[2016-07-06] MEDS: NS 0.9% 1000 ML* 1,000 ML IV SCH (08:00)
[2016-07-06] MEDS: IPRATROPIUM BROMIDE 0.06% BOTH NARES SCH ×2 (08:05→16:32)
--- NOTE | 2016-07-06 15:46 | PN ---
Subjective Date of Service: 07/06/16 Interval History: Pt is feeling ok. He has been sleepy all day per nursing. He denies any pain. He denies SOB. Objective Active Medications: Acetaminophen (Tylenol Tab*) 650 mg PO Q4H PRN PRN Reason: FEVER/PAIN Albuterol/Ipratropium (Duoneb Neb.Ada*) 1 neb INH [id number] AWAKE [facility] Last Admin: 07/06/16 11:07 Dose: 1 neb Aspirin (Aspirin Low Dose Tab*) 81 mg PO DAILY [facility] Last Admin: 07/06/16 07:58 Dose: 81 mg Atorvastatin Calcium (Lipitor*) 10 mg PO DAILY [facility] Last Admin: 07/06/16 07:58 Dose: 10 mg Sodium Chloride (Ns 0.9% 1000 Ml*) 1,000 mls @ 75 mls/hr IV PER RATE [facility] Last Admin: 07/06/16 08:00 Dose: 75 mls/hr Metoprolol Succinate (Toprol Xl Tab*) 50 mg PO DAILY [facility] Last Admin: 07/06/16 07:58 Dose: 50 mg Multivitamins ( Vitamin Tab*) 1 tab PO DAILY [facility] Last Admin: 07/06/16 07:57 Dose: 1 tab Ipratropium [place] (Nasal) [Ipratropium [place]] 0.06 % 0.06 % BOTH NARES BID AC [facility] Last Admin: 07/06/16 08:05 Dose: Not Given Oseltamivir Phosphate (Tamiflu Cap*) 30 mg PO 0900,2100 [facility] Stop: 07/10/16 09:01 Last Admin: 07/06/16 07:58 Dose: 30 mg Pharmacy Profile Note (Coumadin Daily Reminder*) 1 note FOLLOW UP 1700 [facility] Last Admin: 07/05/16 17:51 Dose: 1 note Potassium Chloride (Klor Con Er Tab*) 20 meq PO DAILY WITH MEAL [facility] Last Admin: 07/06/16 07:57 Dose: 20 meq Terazosin HCl (Hytrin Cap*) 10 mg PO BID [facility] Last Admin: 07/06/16 07:58 Dose: 10 mg Warfarin Sodium (Coumadin Tab(*)) 4 mg PO DAILY@1700 [facility] PRN Reason: Protocol Last Admin: 07/05/16 17:50 Dose: 4 mg Vital Signs 07/05/16 07/05/16 07/05/16 19:10 20:00 23:26 Temperature 98.3 F 98.8 F Pulse Rate 116 87 Respiratory 24 22 20 Rate Blood Pressure 143/72 151/83 (mmHg) O2 Sat by Pulse 96 93 Oximetry 07/06/16 07/06/16 07/06/16 05:22 07:13 10:22 Temperature 98.4 F Pulse Rate 85 95 Respiratory 18 18 20 Rate Blood Pressure 142/88 (mmHg) O2 Sat by Pulse 98 95 Oximetry 07/06/16 11:09 Temperature Pulse Rate 95 Respiratory 18 Rate Blood Pressure (mmHg) O2 Sat by Pulse 99 Oximetry Oxygen Devices in Use Now: Nasal Cannula - 99%-2L Appearance: Elderly male sleeping in bed, awakens to voice, NAD Eyes: No Scleral Icterus Ears/Nose/Mouth/Throat: Mucous Membranes Moist Respiratory: Symmetrical Chest Expansion and Respiratory Effort, Clear to Auscultation, - - + wheezing and gurgling upper airway sounds Cardiovascular: NL Sounds; No Murmurs; No JVD, RRR Abdominal: NL Sounds; No Tenderness; No Distention Extremities: No Clubbing, Cyanosis Skin: No Rash or Ulcers, No Nodules or Sclerosis Neurological: - - sleepy, poorly interactive Result Diagrams: 07/06/16 06:05 07/04/16 05:56 Additional Lab and Data: Microbiology and Other Data: Microbiology 07/02/16 23:00 Nasal Screen MRSA (PCR)(RICHARD) - Final Nasal Mrsa Negative Assess/Plan/Problems-Billing Mr. Slaughter is an 86 yo male with PMHx HTN, afib, pulmonary edema, HLD, COPD, BPH , CVA, and ANTIONETTE who presented to the emergency room with trouble breathing, and not eating well who was found to have a possible UTI then ultimately influenza A. - Patient Problems (1) Sepsis Current Visit: Yes Status: Acute Comment: On admission the patient was septic based on sepsis 2 criteria with tachycardia, tachypnea and fever in the setting of presumed infection. By sepsis 3 criteria the patient was septic with low plt count (133K) and elevated creatinine (1.3). His sepsis has now cleared. I suspect the patient was actually septic secondary to not a UTI but influenza. (2) Influenza A Current Visit: Yes Status: Acute Code(s): J10.1 - FLU DUE TO OTH IDENT INFLUENZA VIRUS W OTH RESP MANIFEST SNOMED Code(s): 912878402 Comment: The patient was found to be positive for influenza A yesterday and started on tamiflu. Will continue this to complete a full 5 day course of therapy. This may have explained his SOB on admission as well as his wheezing. (3) Urinary tract infection Current Visit: Yes Status: Acute Comment: On admission the patient was felt to have a UTI however the urine culture was negative. No further Abx therapy. (4) Afib Current Visit: Yes Status: Acute Code(s): I48.91 - UNSPECIFIED ATRIAL FIBRILLATION SNOMED Code(s): 43620500 Comment: HR in general is under fair control. Continue metoprolol and coumadin. INR is in therapeutic range. (5) COPD (chronic obstructive pulmonary disease) Current Visit: Yes Status: Acute Code(s): J44.9 - CHRONIC OBSTRUCTIVE PULMONARY DISEASE, UNSPECIFIED SNOMED Code(s): 19626588 Comment: Pt has wheezing on exam but no other signs of exacerbation. Continue standing nebs and add prn. Add prednisone today. No acute findings on xray yesterday. (6) HTN (hypertension) Current Visit: Yes Status: Acute Code(s): I10 - ESSENTIAL (PRIMARY) HYPERTENSION SNOMED Code(s): 09224650 Comment: BP is under fair control. Continue terazosin and metoprolol. (7) BPH (benign prostatic hyperplasia) Current Visit: Yes Status: Acute Code(s): N40.0 - BENIGN PROSTATIC HYPERPLASIA WITHOUT LOWER URINRY TRACT SYMP SNOMED Code(s): 152723130 Comment: Continue ramirez drainage for chronic urinary retention. (8) DVT prophylaxis Current Visit: Yes Status: Acute Code(s): YBB6934 - SNOMED Code(s): 012572039 Comment: Therapeutic INR (9) DNR (do not resuscitate) Current Visit: No Status: Acute Status and Disposition: .
[2016-07-06] MEDS ORDERED: Albuterol 2.5 MG/3 ML NEB.SOL* (0.083%) INH PRN (15:48)
[2016-07-06] MEDS: predniSONE TAB* 20 MG PO SCH (17:11)
[2016-07-06] MEDS: Warfarin TAB(*) 4 MG PO SCH (17:12)
[2016-07-07] MEDS: NS 0.9% 1000 ML* 1,000 ML IV SCH (00:30)
[2016-07-07] MEDS: Albuterol/Ipratropium NEB.SOL* Albuterol 2.5 MG/Ipratropium 0.5 MG 3 ML INH SCH ×3 (01:15→13:21)
[2016-07-07 07:22] VITALS: BP 150/81
[2016-07-07] MEDS: IPRATROPIUM BROMIDE 0.06% BOTH NARES SCH (07:34)
[2016-07-07] MEDS: Atorvastatin* 10 MG TAB PO SCH (07:38)
[2016-07-07] MEDS: Aspirin Low Dose CHEW TAB* 81 MG PO SCH (07:38)
[2016-07-07] MEDS: Terazosin CAP* 5 MG PO SCH (07:38)
[2016-07-07] MEDS: Metoprolol Succinate XL TAB* 50 MG PO SCH (07:38)
[2016-07-07] MEDS: predniSONE TAB* 20 MG PO SCH (07:38)
[2016-07-07] MEDS: Potassium Chlor TAB* 20 MEQ TAB.ER PO SCH (07:38)
[2016-07-07] MEDS: Prenatal Vitamin TAB PO SCH (07:38)
[2016-07-07] MEDS: Oseltamivir CAP* 30 MG CAP PO SCH (07:39)
[2016-07-07] MEDS ORDERED: Magnesium Hydroxide LIQ* 30 ML UDC PO PRN (12:55)
--- NOTE | 2016-07-07 14:07 | PN ---
Subjective Date of Service: 07/07/16 Interval History: Pt is feeling well. He has no complaints. He states that he had enough to eat thoug Objective Active Medications: Acetaminophen (Tylenol Tab*) 650 mg PO Q4H PRN PRN Reason: FEVER/PAIN Albuterol (Ventolin 2.5 Mg/3 Ml Neb.Ada*) 2.5 mg INH Q4H PRN PRN Reason: SOB/WHEEZING Last Admin: 07/06/16 16:32 Dose: 2.5 mg Albuterol/Ipratropium (Duoneb Neb.Ada*) 1 neb INH [id number] AWAKE [facility] Last Admin: 07/07/16 13:21 Dose: 1 neb Aspirin (Aspirin Low Dose Tab*) 81 mg PO DAILY [facility] Last Admin: 07/07/16 07:38 Dose: 81 mg Atorvastatin Calcium (Lipitor*) 10 mg PO DAILY [facility] Last Admin: 07/07/16 07:38 Dose: 10 mg Magnesium Hydroxide (Milk Of Magnfaraz Liq*) 30 ml PO DAILY PRN PRN Reason: constipation Metoprolol Succinate (Toprol Xl Tab*) 50 mg PO DAILY [facility] Last Admin: 07/07/16 07:38 Dose: 50 mg Multivitamins ( Vitamin Tab*) 1 tab PO DAILY [facility] Last Admin: 07/07/16 07:38 Dose: 1 tab Ipratropium [place] (Nasal) [Ipratropium [place]] 0.06 % 0.06 % BOTH NARES BID AC [facility] Last Admin: 07/07/16 07:34 Dose: Not Given Oseltamivir Phosphate (Tamiflu Cap*) 30 mg PO 0900,2100 [facility] Stop: 07/10/16 09:01 Last Admin: 07/07/16 07:39 Dose: 30 mg Pharmacy Profile Note (Coumadin Daily Reminder*) 1 note FOLLOW UP 1700 [facility] Last Admin: 07/06/16 17:36 Dose: 1 note Potassium Chloride (Klor Con Er Tab*) 20 meq PO DAILY WITH MEAL [facility] Last Admin: 07/07/16 07:38 Dose: 20 meq Prednisone (Deltasone Tab*) 40 mg PO DAILY [facility] Last Admin: 07/07/16 07:38 Dose: 40 mg Terazosin HCl (Hytrin Cap*) 10 mg PO BID [facility] Last Admin: 07/07/16 07:38 Dose: 10 mg Warfarin Sodium (Coumadin Tab(*)) 4 mg PO DAILY@1700 [facility] PRN Reason: Protocol Last Admin: 07/06/16 17:12 Dose: 4 mg Vital Signs 07/06/16 07/06/16 07/06/16 17:01 17:13 19:51 Temperature 97.5 F Pulse Rate 46 67 103 Respiratory 20 Rate Blood Pressure 138/84 (mmHg) O2 Sat by Pulse 96 93 Oximetry 07/06/16 07/06/16 07/07/16 21:03 23:19 07:21 Temperature 98.0 F Pulse Rate 99 97 Respiratory 20 18 Rate Blood Pressure 121/76 150/81 (mmHg) O2 Sat by Pulse 95 96 Oximetry 07/07/16 07/07/16 07/07/16 08:52 09:04 13:21 Temperature Pulse Rate 100 82 Respiratory 20 18 20 Rate Blood Pressure (mmHg) O2 Sat by Pulse 95 94 Oximetry Oxygen Devices in Use Now: Nasal Cannula - 94%-2L Appearance: Elderly male sitting in a chair, NAD Eyes: No Scleral Icterus Ears/Nose/Mouth/Throat: Mucous Membranes Moist Respiratory: Symmetrical Chest Expansion and Respiratory Effort, Clear to Auscultation Cardiovascular: NL Sounds; No Murmurs; No JVD, RRR, No Edema Abdominal: NL Sounds; No Tenderness; No Distention Extremities: No Clubbing, Cyanosis Skin: No Rash or Ulcers, No Nodules or Sclerosis Neurological: - - seems confused but likely at baseline with usual expressive aphasia Result Diagrams: 07/06/16 06:05 07/04/16 05:56 Additional Lab and Data: Microbiology and Other Data: Microbiology 07/02/16 23:00 Nasal Screen MRSA (PCR)(RICHARD) - Final Nasal Mrsa Negative Assess/Plan/Problems-Billing Mr. Slaughter is an 86 yo male with PMHx HTN, afib, pulmonary edema, HLD, COPD, BPH , CVA, and ANTIONETTE who presented to the emergency room with trouble breathing, and not eating well who was found to have a possible UTI then ultimately influenza A. - Patient Problems (1) Sepsis Current Visit: Yes Status: Acute Comment: On admission the patient was septic based on sepsis 2 criteria with tachycardia, tachypnea and fever in the setting of presumed infection. By sepsis 3 criteria the patient was septic with low plt count (133K) and elevated creatinine (1.3). His sepsis has now cleared. I suspect the patient was actually septic secondary to not a UTI but influenza. (2) Influenza A Current Visit: Yes Status: Acute Code(s): J10.1 - FLU DUE TO OTH IDENT INFLUENZA VIRUS W OTH RESP MANIFEST SNOMED Code(s): 689901874 Comment: The patient has improved. More alert today. He has not had any furhter fevers and his VS are stable. Will continue tamiflu x 6 more doses. (3) Urinary tract infection Current Visit: Yes Status: Acute Comment: On admission the patient was felt to have a UTI however the urine culture was negative. No further Abx therapy. (4) Afib Current Visit: Yes Status: Acute Code(s): I48.91 - UNSPECIFIED ATRIAL FIBRILLATION SNOMED Code(s): 98915590 Comment: HR in general is under fair control. Continue metoprolol and coumadin. INR is in therapeutic range. (5) COPD (chronic obstructive pulmonary disease) Current Visit: Yes Status: Acute Code(s): J44.9 - CHRONIC OBSTRUCTIVE PULMONARY DISEASE, UNSPECIFIED SNOMED Code(s): 55747881 Comment: No wheezing noted today. Will start to taper the prednisone starting tomorrow. (6) HTN (hypertension) Current Visit: Yes Status: Acute Code(s): I10 - ESSENTIAL (PRIMARY) HYPERTENSION SNOMED Code(s): 65924184 Comment: BP is under fair control. Continue terazosin and metoprolol. (7) BPH (benign prostatic hyperplasia) Current Visit: Yes Status: Acute Code(s): N40.0 - BENIGN PROSTATIC HYPERPLASIA WITHOUT LOWER URINRY TRACT SYMP SNOMED Code(s): 581248377 Comment: Continue ramirez drainage for chronic urinary retention. (8) DVT prophylaxis Current Visit: Yes Status: Acute Code(s): JSU1975 - SNOMED Code(s): 849764565 Comment: Therapeutic INR (9) DNR (do not resuscitate) Current Visit: Yes Status: Acute Status and Disposition: d/c home
--- NOTE | 2016-07-08 01:26 | DS ---
DISCHARGE SUMMARY: DATE OF ADMISSION: 07/02/16 DATE OF DISCHARGE: 07/07/16 PRIMARY CARE PROVIDER: Dr. Contreras. PRINCIPAL DIAGNOSIS: Sepsis secondary to influenza. SECONDARY DIAGNOSES: 1. Atrial fibrillation. 2. 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 3. Chronic obstructive pulmonary disease. 4. Hypertension. 5. Benign prostatic hyperplasia with chronic urinary retention. DISCHARGE MEDICATIONS: 1. Terazosin 10 mg p.o. b.i.d. 2. Simvastatin 20 mg p.o. daily. 3. Potassium chloride 20 mEq p.o. daily. 4. Multivitamin 1 tab p.o. daily. 5. Prostate 3 caps p.o. daily. 6. Metoprolol XL 50 mg p.o. daily. 7. Ipratropium bromide nasal 1 squirt to both nostrils twice daily. 8. Lasix 20 mg p.o. daily. 9. Aspirin 81 mg p.o. daily. 10. Prednisone 40 mg p.o. daily x1 day, then 30 mg x1 day, then 20 mg x1 day, then 10 mg x1 day. 11. Coumadin 4 mg p.o. daily. 12. Tamiflu 30 mg p.o. b.i.d. x6 doses. 13. DuoNeb 1 neb q.6 hours p.r.n. shortness of breath or wheeze. HOSPITAL COURSE: Mr. Slaughter is an 86-year-old male who has a history of expressive aphasia and likely mild dementia, who presents to the emergency room with altered mental status. Initially, it was felt that this was likely secondary to urinary tract infection; however, his urine culture came back negative. On 07/05/16, the patient spiked the fever to 102.6. At that time, a new investigation was carried out to identify the cause of the patient's fever and sepsis that was present on admission. Ultimately, the patient was found to be positive for influenza A. The patient was started on Tamiflu. The patient has had resolution of his fever and stable vital signs. At this point, the patient was felt to be stable to be discharged back to [facility]. The patient is at his baseline in terms of his mobility and mental status. Of note, the patient has previously been identified to need oxygen at baseline; however, he does not keep the oxygen in place and therefore has not been prescribed for the patient in the past nor will be prescribed this hospitalization. FOLLOWUP CONCERNS: The patient is being discharged home today, 07/07/16. ACTIVITY LEVEL: As tolerated. DIET: Regular. CONDITION ON DISCHARGE: Stable. The patient is to follow up with Dr. Contreras in the next 4 to 7 days. TIME SPENT: Thirty-five minutes was spent discharging this patient. CC: Dr. Contreras * [id number]/CPS #: [id number] MTDD
== END 2016-07-07 15:15 | DRG 872 ==
LOC: ED 15:29 → MED 20:27
PROVIDERS: ADMIT Internal Medicine; ATTEND Hospitalist
DX: A41.89 Other specified sepsis (principal); I48.91 Unspecified atrial fibrillation; F03.90 Unspecified dementia, unspecified severity, without behavioral disturbance, psychotic disturbance, mood disturbance, and anxiety; B97.89 Other viral agents as the cause of diseases classified elsewhere; I10 Essential (primary) hypertension; E78.5 Hyperlipidemia, unspecified; J44.9 Chronic obstructive pulmonary disease, unspecified; G47.33 Obstructive sleep apnea (adult) (pediatric); Z66 Do not resuscitate; J45.909 Unspecified asthma, uncomplicated; M19.90 Unspecified osteoarthritis, unspecified site; R79.89 Other specified abnormal findings of blood chemistry; J10.1 Influenza due to other identified influenza virus with other respiratory manifestations; N40.1 Benign prostatic hyperplasia with lower urinary tract symptoms; R33.9 Retention of urine, unspecified; Z82.49 Family history of ischemic heart disease and other diseases of the circulatory system; Z87.891 Personal history of nicotine dependence; I69.320 Aphasia following cerebral infarction; Z79.82 Long term (current) use of aspirin; Z79.01 Long term (current) use of anticoagulants
CPT/HCPCS: 36415; 71010; 80048; 80053; 81003; 81015; 82140; 82550; 82553; 83605; 83690; 83735; 83880; 84145; 84443; 84484; 85025; 85379; 85610; 85730; 86140; 87040; 87086; 87502; 87641; 94640; 94760; A9270-GY; J0696; J7512

== ENCOUNTER 2016-07-07 21:54 | Emergency (ER) | payer MEDICARE ==
[2016-07-07 23:18] VITALS: BP 148/96
--- NOTE | 2016-07-08 22:05 | ED ---
GI/ HPI - HPI Summary HPI Summary: Patient with a history of dementia is BIBA after cutting his urinary catheter with scissors saying he was "tired of it." He is unable to answer questions d/ t dementia. No other complaints per staff. No fever. Otherwise breathing OK. Eating, drinking OK. Urinary catheter prior to arrival draining properly without known infection at site or in urine. - History of Current Complaint Chief Complaint: EDGeneral Time Seen by Provider: 07/07/16 22:22 Stated Complaint: NEEDS NEW CATH Hx Obtained From: EMS, Medical Records, Other: - staff Hx From Patient Unobtainable Due To: Dementia Onset/Duration: Started Hours Ago Timing: Constant Severity: Mild Current Severity: Mild Vaginal Bleeding Description: Brown Pain Intensity: 0 Location of Pain: None - unknown Additional Locations for Males: Penis Pain Characteristics: Dull, Cramping Aggravating Factor(s): Nothing Alleviating Factor(s): Nothing - Risk Factors GI Bleed Risk Factor(s): Negative Testicular Torsion Risk Factor(s): Negative - Additional Pertinent History Primary Care Physician: BLAS - Allergy/Home Medications Allergies/Adverse Reactions: Allergies Allergy/AdvReac Type Severity Reaction Status Date / Time No Known Allergies Allergy Verified 04/14/15 02:01 PMH/Surg Hx/FS Hx/Imm Hx Previously Healthy: Yes Endocrine/Hematology History: Denies: Hx Diabetes Cardiovascular History: Reports: Hx Hypertension, Other Cardiovascular Problems/ Disorders - AFIB Denies: Hx Pacemaker/ICD Respiratory History: Reports: Hx Asthma, Hx Chronic Obstructive Pulmonary Disease (COPD), Hx Pulmonary Edema History: Denies: Hx Renal Disease Musculoskeletal History: Reports: Hx Arthritis Sensory History: Reports: Hx Contacts or Glasses Denies: Hx Hearing Aid Opthamlomology History: Reports: Hx Contacts or Glasses Neurological History: Reports: Hx Dementia, Hx Transient Ischemic Attacks (TIA) Psychiatric History: Denies: Hx Panic Disorder - Immunization History Date of Tetanus Vaccine: unknown Hx Pertussis Vaccination: No Immunizations Up to Date: No Infectious Disease History: No Infectious Disease History: Denies: Traveled Outside the [place] in Last 30 Days - Family History Known Family History: Positive: Cardiac Disease - father - [place] at 52 - Social History Occupation: Retired Lives: [facility] Alcohol Use: None Hx Substance Use: No Substance Use Type: Reports: None Hx Tobacco Use: Yes Smoking Status (MU): Former Smoker Type: Cigarettes Review of Systems Constitutional: Negative Eyes: Negative Respiratory: Negative Positive: no symptoms reported, see HPI, other - urinary catheter in place with cut in tubing, balloon still in place Musculoskeletal: Negative Skin: Negative Neurological: Negative Positive: Anxious All Other Systems Reviewed And Are Negative: Yes Physical Exam Triage Information Reviewed: Yes Vital Signs On Initial Exam: Initial Vitals Temp Pulse Resp BP Pulse Ox 98.4 F 113 20 149/100 96 07/07/16 22:14 07/07/16 22:14 07/07/16 22:14 07/07/16 22:14 07/07/16 22:14 Completion Of Physical Exam Limited Due To: Dementia Appearance: Positive: Well-Appearing, No Pain Distress Skin: Positive: Warm Eyes: Positive: Normal ENT: Positive: Normal ENT inspection Neck: Positive: Nontender Respiratory/Lung Sounds: Positive: Clear to Auscultation, Breath Sounds Present Cardiovascular: Positive: Normal Male Genital Exam: Positive: other - catheter placed with balloon inflated, tubing cut Musculoskeletal: Positive: Normal Neurological: Positive: Other - not oriented to person, place or time. d/t dementia Psychiatric: Positive: Normal Diagnostics - Vital Signs Vital Signs Temp Pulse Resp BP Pulse Ox 07/07/16 23:17 98.4 F 98 18 148/96 07/07/16 22:14 98.4 F 113 20 149/100 96 - Laboratory Lab Statement: Any lab studies that have been ordered have been reviewed, and results considered in the medical decision making process. GIGU Course/Dx - Course Course Of Treatment: Ramirez catheter removed with new placement of new catheter. Physical exam performed. Patient tolerated well. Dementia procluding any good ROS. Will send back to nursing facility with new catheter placement. - Diagnoses Differential Diagnoses - Male: Bladder Dysfunction, Dehydration, Urinary Tract Infection Provider Diagnoses: Ramirez catheter problem Discharge - Discharge Plan Condition: Stable Disposition: HOME Patient Education Materials: Ramirez Catheter Placement and Care (ED) Referrals: Saul Contreras MD [Primary Care Provider] - Additional Instructions: Come back to ED if symptoms worsen or ramirez is not emptying or working properly. Tylenol for discomfort d/t ramirez placement.
== END 2016-07-07 23:17 | disposition home or self-care (01) ==
LOC: ED 21:54
DX: T83.9XXA Unspecified complication of genitourinary prosthetic device, implant and graft, initial encounter (principal); F03.90 Unspecified dementia, unspecified severity, without behavioral disturbance, psychotic disturbance, mood disturbance, and anxiety; Z87.891 Personal history of nicotine dependence
CPT/HCPCS: 99283

== ENCOUNTER 2016-07-10 16:11 | Inpatient (IN) | payer MEDICARE ==
[2016-07-10] MEDS ORDERED: methylPREDNISolone SOD SUCC* 125 MG 2 ML VIAL IV ONE (16:45)
[2016-07-10] MEDS ORDERED: Albuterol/Ipratropium NEB.SOL* Albuterol 2.5 MG/Ipratropium 0.5 MG 3 ML INH ONE (16:45)
[2016-07-10] MEDS ORDERED: NS 0.9% 1000 ML* 1,000 ML IV SCH (16:45)
[2016-07-10 17:09] LABS: Hematocrit 43 % (42-52); Hemoglobin 13.5 g/dl (14.0-18.0); Mean Corpuscular HGB Conc 32 g/dl (31-36); Mean Corpuscular Hemoglobin 26 pg (27-31); Mean Corpuscular Volume 82 fL (80-94); Mean Platelet Volume 10 um3 (7.4-10.4); Red Blood Count 5.22 10^6/ul (4.0-5.4); Red Cell Distribution Width 16 % (10.5-15); White Blood Count 11.4 10^3/ul (3.5-10.8)
[2016-07-10 17:30] LABS: ALT 26 U/L (7-52); Albumin 3.7 g/dL (3.2-5.2); Alkaline Phosphatase 65 U/L (34-104); Blood Urea Nitrogen 24 mg/dL (6-24); C Reactive Protein 13.49 mg/L (< 5.00); CO2 Carbon Dioxide 31 mmol/L (22-32); Calcium 9.7 mg/dL (8.6-10.3); Chloride 100 mmol/L (101-111); Creatine Kinase 72 U/L (10-223); EGFR African American 95.5 (>60); EGFR Non-African American 74.3 (>60); Globulin 3.6 g/dL (2-4); Glucose 170 mg/dL (70-100); Lipase 22 U/L (11.0-82.0); Magnesium 1.7 mg/dL (1.9-2.7); Sodium 137 mmol/L (133-145); Total Protein 7.3 g/dL (6.4-8.9)
[2016-07-10 17:47] LABS: Troponin I 0.05 ng/mL (<0.04)
--- NOTE | 2016-07-10 18:03 | RAD ---
Indication: Recent hospitalization for flu. Pulmonary congestion. Mental status change. Wheezing. Comparison: July 05, 2016 Technique: Upright AP 1735 hours Report: Elevated lung volumes and diffuse mild prominence of interstitial markings. No alveolar consolidation, focal pulmonary lesion, pleural effusion, pneumothorax. Cardiomegaly without gross change. Unremarkable central pulmonary vasculature and mediastinal contours. IMPRESSION: Stigmata of chronic obstructive pulmonary disease. No acute cardiopulmonary process evident.
[2016-07-10] MEDS ORDERED: cefTRIAXone(*) 1 GM in NS 0.9% 50 ML* 50 ML IVPB ONE (18:18)
[2016-07-10] MEDS ORDERED: Levofloxacin 750 MG IVPREMIX(* 750 MG/150 ML BAG IVPB ONE (18:18)
[2016-07-10 18:27] LABS: TSH (Thyroid Stimulating Horm) 1.97 mcIU/mL (0.34-5.60)
[2016-07-10] MEDS ORDERED: Albuterol/Ipratropium NEB.SOL* Albuterol 2.5 MG/Ipratropium 0.5 MG 3 ML INH PRN (20:06)
[2016-07-10] MEDS: DOXYcycline CAP(*) 100 MG PO SCH (22:02)
[2016-07-10] MEDS: Oseltamivir CAP* 30 MG CAP PO SCH (22:02)
[2016-07-10] MEDS: Terazosin CAP* 5 MG PO SCH (22:04)
[2016-07-10] MEDS: NS 0.9% 1000 ML* 1,000 ML IV SCH (22:09)
--- NOTE | 2016-07-10 22:48 | ED ---
Martita Govea Claudia, scribed for Saul Cantu MD on 07/10/16 at 1644 . Shortness of Breath - HPI Summary HPI Summary: 86 year old male presents to the ED with cough, SOB. Pt son notes that pt has some dementia and he documents. Son notes that he took pot for a Urology appt this am and pt seemed somewhat weak. Pt was Dx last Sunday with the influenza and then [place] [facility] [place] [facility]. [facility] notes that the pt was somewhat unresponsive this pm with abnormal vital signs so they called the son. The son notes that on the way to the ED pt was gurgling and having a difficult time breathing with a productive cough, as well as difficulty getting in and out of the car more so than usual. PMHx of CVA is noted. Pt notes that he has no trouble moving his extremities. - History of Current Complaint Chief Complaint: EDShortnessOfBreath Time Seen by Provider: 07/10/16 16:38 Hx Obtained From: Patient, Family/Client Relationship Consultant Onset/Duration: Sudden Onset Associated Signs & Symptoms: Cough (Productive) - Allergy/Home Medications Allergies/Adverse Reactions: Allergies Allergy/AdvReac Type Severity Reaction Status Date / Time No Known Allergies Allergy Verified 04/14/15 02:01 Home Medications: Home Medications Terazosin CAP* [Hytrin CAP*] 10 mg PO BEDTIME 07/10/16 [History Confirmed ] PMH/Surg Hx/FS Hx/Imm Hx Previously Healthy: Yes Endocrine/Hematology History: Denies: Hx Diabetes Cardiovascular History: Reports: Hx Hypertension, Other Cardiovascular Problems/ Disorders - AFIB Denies: Hx Pacemaker/ICD Respiratory History: Reports: Hx Asthma, Hx Chronic Obstructive Pulmonary Disease (COPD), Hx Pulmonary Edema History: Denies: Hx Renal Disease Musculoskeletal History: Reports: Hx Arthritis Sensory History: Reports: Hx Contacts or Glasses Denies: Hx Hearing Aid Opthamlomology History: Reports: Hx Contacts or Glasses Neurological History: Reports: Hx Dementia, Hx Transient Ischemic Attacks (TIA) Psychiatric History: Denies: Hx Panic Disorder - Immunization History Date of Tetanus Vaccine: unknown Infectious Disease History: No Infectious Disease History: Denies: Traveled Outside the US in Last 30 Days - Family History Known Family History: Positive: Cardiac Disease - father - [place] at 52 - Social History Occupation: Retired Lives: Assisted Living - [facility] Alcohol Use: None Hx Substance Use: No Substance Use Type: Reports: None Hx Tobacco Use: Yes Smoking Status (MU): Former Smoker Type: Cigarettes Review of Systems - ROS Summary Review of Systems Summary: Level 5 caveat- Dementia Constitutional: Negative Eyes: Negative ENT: Negative Cardiovascular: Negative Positive: Shortness Of Breath, Cough Gastrointestinal: Negative Genitourinary: Negative Musculoskeletal: Negative Skin: Negative Neurological: Negative Psychological: Normal All Other Systems Reviewed And Are Negative: Yes Physical Exam - Summary Physical Exam Summary: level 5 caveat- dementia Triage Information Reviewed: Yes Vital Signs On Initial Exam: Initial Vitals Temp Pulse Resp BP Pulse Ox 97.7 F 118 24 147/90 97 07/10/16 16:14 07/10/16 16:14 07/10/16 16:14 07/10/16 16:14 07/10/16 16:14 Vital Signs Reviewed: Yes Appearance: Positive: Well-Appearing, No Pain Distress Skin: Positive: Warm, Skin Color Reflects Adequate Perfusion, Dry Head/Face: Positive: Normal Head/Face Inspection Eyes: Positive: EOMI, JOEY Neck: Positive: Supple, Nontender Respiratory/Lung Sounds: Positive: Breath Sounds Present, Wheezes - bilaterally , Other - mild to moderate respiratory distress Cardiovascular: Positive: RRR, Leg Edema Left - bilateral pedal edema, Leg Edema Right - bilateral pedal edema Abdomen Description: Positive: Nontender, Soft Bowel Sounds: Positive: Present Musculoskeletal: Positive: Normal, Strength/ROM Intact Psychiatric: Positive: Affect/Mood Appropriate Diagnostics - Vital Signs Vital Signs Temp Pulse Resp BP Pulse Ox 07/10/16 16:14 97.7 F 118 24 147/90 97 - Laboratory Lab Results: Lab Results 07/10/16 07/10/16 07/10/16 Range/Units 16:55 16:55 16:55 WBC 11.4 H (3.5-10.8) 10^3/ul RBC 5.22 (4.0-5.4) 10^6/ul Hgb 13.5 L (14.0-18.0) g/dl Hct 43 (42-52) % MCV 82 (80-94) fL MCH 26 L (27-31) pg MCHC 32 (31-36) g/dl RDW 16 H (10.5-15) % Plt Count 167 (150-450) 10^3/ul MPV 10 (7.4-10.4) um3 Neut % (Auto) 86.0 H (38-83) % Lymph % (Auto) 7.4 L (25-47) % [place] % (Auto) 5.5 (1-9) % Eos % (Auto) 0.6 (0-6) % Baso % (Auto) 0.5 (0-2) % Absolute Neuts (auto) 9.8 H (1.5-7.7) 10^3/ul Absolute Lymphs (auto) 0.8 L (1.0-4.8) 10^3/ul Absolute Monos (auto) 0.6 (0-0.8) 10^3/ul Absolute Eos (auto) 0.1 (0-0.6) 10^3/ul Absolute Basos (auto) 0.1 (0-0.2) 10^3/ul Absolute Nucleated RBC 0 10^3/ul Nucleated RBC % 0 INR (Anticoag Therapy) 2.93 H (0.89-1.11) APTT 34.6 (26.0-36.3) seconds Sodium 137 (133-145) mmol/L Potassium TNP Chloride 100 L (101-111) mmol/L Carbon Dioxide 31 (22-32) mmol/L Anion Gap TNP BUN 24 (6-24) mg/dL Creatinine 0.96 (0.67-1.17) mg/dL Est GFR ( Amer) 95.5 (>60) Est GFR (Non-Af Amer) 74.3 (>60) BUN/Creatinine Ratio 25.0 H (8-20) Glucose 170 H (70-100) mg/dL Lactic Acid (0.5-2.0) mmol/L Calcium 9.7 (8.6-10.3) mg/dL Magnesium 1.7 L (1.9-2.7) mg/dL Total Bilirubin 0.70 (0.2-1.0) mg/dL AST TNP ALT 26 (7-52) U/L Alkaline Phosphatase 65 (34-104) U/L Total Creatine Kinase 72 (10-223) U/L CK-MB (CK-2) 8.3 H (0.6-6.3) ng/mL Troponin I 0.05 H* (<0.04) ng/mL C-Reactive Protein 13.49 H (< 5.00) mg/L B-Natriuretic Peptide ( - 100) pg/mL Total Protein 7.3 (6.4-8.9) g/dL Albumin 3.7 (3.2-5.2) g/dL Globulin 3.6 (2-4) g/dL Albumin/Globulin Ratio 1.0 (1-3) Lipase 22 (11.0-82.0) U/L TSH 1.97 (0.34-5.60) mcIU/mL 07/10/16 07/10/16 07/10/16 Range/Units 16:55 16:55 18:15 WBC (3.5-10.8) 10^3/ul RBC (4.0-5.4) 10^6/ul Hgb (14.0-18.0) g/dl Hct (42-52) % MCV (80-94) fL MCH (27-31) pg MCHC (31-36) g/dl RDW (10.5-15) % Plt Count (150-450) 10^3/ul MPV (7.4-10.4) um3 Neut % (Auto) (38-83) % Lymph % (Auto) (25-47) % [place] % (Auto) (1-9) % Eos % (Auto) (0-6) % Baso % (Auto) (0-2) % Absolute Neuts (auto) (1.5-7.7) 10^3/ul Absolute Lymphs (auto) (1.0-4.8) 10^3/ul Absolute Monos (auto) (0-0.8) 10^3/ul Absolute Eos (auto) (0-0.6) 10^3/ul Absolute Basos (auto) (0-0.2) 10^3/ul Absolute Nucleated RBC 10^3/ul Nucleated RBC % INR (Anticoag Therapy) (0.89-1.11) APTT (26.0-36.3) seconds Sodium (133-145) mmol/L Potassium 3.8 Chloride (101-111) mmol/L Carbon Dioxide (22-32) mmol/L Anion Gap BUN (6-24) mg/dL Creatinine (0.67-1.17) mg/dL Est GFR ( Amer) (>60) Est GFR (Non-Af Amer) (>60) BUN/Creatinine Ratio (8-20) Glucose (70-100) mg/dL Lactic Acid 1.2 (0.5-2.0) mmol/L Calcium (8.6-10.3) mg/dL Magnesium (1.9-2.7) mg/dL Total Bilirubin (0.2-1.0) mg/dL AST 32 ALT (7-52) U/L Alkaline Phosphatase (34-104) U/L Total Creatine Kinase (10-223) U/L CK-MB (CK-2) (0.6-6.3) ng/mL Troponin I (<0.04) ng/mL C-Reactive Protein (< 5.00) mg/L B-Natriuretic Peptide 360 H ( - 100) pg/mL Total Protein (6.4-8.9) g/dL Albumin (3.2-5.2) g/dL Globulin (2-4) g/dL Albumin/Globulin Ratio (1-3) Lipase (11.0-82.0) U/L TSH (0.34-5.60) mcIU/mL Result Diagrams: 07/10/16 16:55 07/10/16 18:15 Lab Statement: Any lab studies that have been ordered have been reviewed, and results considered in the medical decision making process. - Radiology CXR Xray Interpretation: No Acute Changes - STIGMATA OF COPD. NO ACUTE CARDIOPULMONARY PROCESS EVIDENT. Radiology Interpretation Completed By: Radiologist - EKG 1623 EKG Rhythm: Atrial Fibrillation EKG Interpretation: QTC> 500 Course/Dx - Course Assessment/Plan: ADMIT HOSPITALIST STABLE - Diagnoses Provider Diagnoses: COPD with acute bronchitis, Weakness - Physician Notifications Discussed Care of Patient With: Discussed care of patient with whom will admit pt [place] [facility] Discharge - Discharge Plan Condition: Stable Disposition: ADMITTED TO [facility] documentation as recorded by the Martita green Claudia accurately reflects the service I personally performed and the decisions made by , Saul Cantu MD.
[2016-07-10] MEDS: Albuterol/Ipratropium NEB.SOL* Albuterol 2.5 MG/Ipratropium 0.5 MG 3 ML INH SCH (22:53)
--- NOTE | 2016-07-11 00:45 | HP ---
HOSPITAL MEDICINE HISTORY AND PHYSICAL: DATE OF ADMISSION: 07/10/16 PRIMARY CARE PHYSICIAN: Dr. Contreras. ATTENDING PHYSICIAN: Jose Johnson MD *(dictation provided by Gemini Alegre NP) CHIEF COMPLAINT: Weakness, cough, wheezing. HISTORY OF PRESENT ILLNESS: Mr. Slaughter is an 86-year-old male who has expressive aphasia and participates in a limited fashion and examination. Information was obtained from the electronic medical record and from the patient 's family who is at the bedside. According to the report, Mr. Slaughter was originally admitted to our hospital and discharged on 05/20/16 after being treated for sepsis with urinary retention and possible UTI. He then returned on 07/02/16 with suspected UTI, but ended up being found to have flu and was discharged on 07/07/16. The patient's family states that the patient was better at the time of discharge, which was just 3 days ago, but that he was weak. They felt that he was safe for discharge. On the following day, he was doing well although is still somewhat weak. However, yesterday, he was noted to be much weaker than usual and then this morning, he had an episode where he had limited responsiveness. Family came to pick him up to bring him to the hospital and noted that he was very weak with shortness of breath, cough, and wheezing. They noted specifically that there is audible wheezing all the way into the hospital. They note that he responded well to duo nebulizer treatment and seems to be better here in the ED today. In the emergency room, Mr. Slaughter had a chest x-ray, which showed no acute infiltrates. He had a WBC that was normal. His CRP is only 13.49. His troponin is 0.05, but this is consistent with all previous troponins drawn during the last hospitalization. His lactic acid is 1.2. The patient was seen by Urology this morning at 9 a.m. The patient's son noted that he fell asleep in the wheelchair on the way into the appointment and he thought this was unusual for his father. PAST MEDICAL HISTORY: 1. Hypertension. 2. Atrial fibrillation. 3. History of hyperlipidemia. 4. COPD. 5. CVA x2. 6. 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 7. BPH. 8. Obstructive sleep apnea. 9. History of urinary retention. MEDICATIONS: 1. Albuterol nebulizers p.r.n. 2. Ipratropium both nares as needed. 3. Prostate caps, 3 caps p.o. daily. 4. Prednisone 40 mg p.o. daily. 5. Aspirin 81 mg p.o. daily. 6. Furosemide 20 mg p.o. q.a.m. 7. Metoprolol succinate 50 mg p.o. daily. 8. Multivitamin 1 tab p.o. daily. 9. Oseltamivir 30 mg p.o. daily. 10. Potassium chloride 20 mEq p.o. daily. 11. Simvastatin 20 mg p.o. daily. 12. Terazosin 10 mg p.o. at bedtime. 13. Warfarin 4 mg p.o. daily. FAMILY HISTORY: Per the report, the patient's mother at 83 of old age. Father with heart attack in the 60s. SOCIAL HISTORY: The patient quit smoking 35 years ago. No reported alcohol or drug use. He lives at [place]. His son is the healthcare proxy. REVIEW OF SYSTEMS: A 14-point review of systems is completed with Mr. Slaughter. At this point, he has no complaints. PHYSICAL EXAMINATION GENERAL: Mr. Slaughter is sitting in the bed. He is in no acute distress. He is calm and cooperative to my examination. VITAL SIGNS: Blood pressure 147/90, heart rate 83, temperature 97.7, respiratory rate 20, O2 saturation 96% on room air. LUNGS: Have some expiratory wheezing bilaterally. No accessory muscle use. Good aeration. HEART: S1, S2. No murmur, rub, or gallop. ABDOMEN: Soft, nontender with bowel sounds positive x4. NEURO: He is alert and oriented x3. He moves all extremities equally. There is no facial asymmetry or focal weakness. Extraocular movements are intact. The patient does have expressive aphasia and speaks very slowly though clearly. EXTREMITIES: No cyanosis or edema. SKIN: Intact. LABORATORY DATA/DIAGNOSTIC STUDIES: WBC 11.4, hemoglobin 13.5, hematocrit 43, platelet count was 67. INR 2.93. Sodium 137, potassium 3.8, chloride 100, serum bicarbonate 31, BUN 24, creatinine 0.96, glucose 170. Lactic acid 1.2. Magnesium 1.7. Troponin 0.05. CRP 13.49. Chest x-ray shows no acute process. EKG shows atrial fibrillation. No evidence of ischemia. Heart rate 100. ASSESSMENT: Mr. Slaughter is an 86-year-old male with a past medical history of recent admission to the hospital with discharge on 07/07/16 with flu as well as atrial fibrillation, hypertension, COPD, and CVA with expressive aphasia. He presents today to the hospital with concern for weakness, shortness of breath, cough, and wheezing. The plans are for observation in the hospital for the followin. Shortness of breath, cough, and wheezing: The patient shows no evidence of an infiltrate on chest x-ray. He has no leukocytosis. He has no fever. I suspect that perhaps he has mild flare of COPD in the setting of recent flu. He was discharged home on Tamiflu and prednisone. He did respond well to duo nebulizer in the emergency department. Duo nebulizers were ordered for him to have at home but it does not appear from the record that that had been set up yet. My plan for now is to increase him to intravenous steroids for tomorrow to help quiet any airway reactivity. He will have doxycycline for antibiotic coverage as I am quite concerned this patient is at high risk for developing pneumonia secondarily after his illness. We will continue with duo nebulizers q.4 hours while awake and as needed. Oxygen will be available as needed. 2. Hypertension. Continue furosemide and metoprolol. 3. Atrial fibrillation. Continue warfarin and metoprolol. INR is therapeutic. 4. Recent flu. Continue Tamiflu. 5. DVT prophylaxis with warfarin. 6. Code status is DNR. TIME SPENT: Approximately 60 minutes was spent on the admission of this patient , and more than half of the time was spent with the patient at the bedside reviewing the events leading up to this hospitalization, performing the physical examination and reviewing my plan of care. GEMINI ALEGRE NP CC: Dr. Contreras* [id number]/[facility] #: [id number] MANN
[2016-07-11] MEDS: Albuterol/Ipratropium NEB.SOL* Albuterol 2.5 MG/Ipratropium 0.5 MG 3 ML INH SCH ×6 (02:46→23:00)
[2016-07-11 04:48] LABS: Hematocrit 40 % (42-52); Hemoglobin 12.4 g/dl (14.0-18.0); Mean Corpuscular HGB Conc 32 g/dl (31-36); Mean Corpuscular Hemoglobin 26 pg (27-31); Mean Corpuscular Volume 83 fL (80-94); Mean Platelet Volume 10 um3 (7.4-10.4); Red Blood Count 4.77 10^6/ul (4.0-5.4); Red Cell Distribution Width 16 % (10.5-15); White Blood Count 8.1 10^3/ul (3.5-10.8)
[2016-07-11 04:49] LABS: Add Diff/Slide Review? Slide Review Added; Comments Flag Yes
[2016-07-11 04:58] LABS: BUN/Creatinine Ratio 22.8 (8-20); EGFR African American 100.3 (>60); Potassium 4.1 mmol/L (3.5-5.0)
[2016-07-11] MEDS: NS 0.9% 1000 ML* 1,000 ML IV SCH ×2 (08:08→19:51)
[2016-07-11] MEDS: Oseltamivir CAP* 30 MG CAP PO SCH ×2 (09:15→20:16)
[2016-07-11] MEDS: Prenatal Vitamin TAB PO SCH (09:15)
[2016-07-11] MEDS: Metoprolol Succinate XL TAB* 50 MG PO SCH (09:15)
[2016-07-11] MEDS: Furosemide TAB* 20 MG PO SCH (09:15)
[2016-07-11] MEDS: DOXYcycline CAP(*) 100 MG PO SCH ×2 (09:15→20:16)
[2016-07-11] MEDS: Potassium Chlor TAB* 20 MEQ TAB.ER PO SCH (09:15)
[2016-07-11] MEDS: methylPREDNISolone SOD SUCC* 125 MG 2 ML VIAL IV SCH ×2 (09:15→19:47)
[2016-07-11] MEDS: Magnesium Oxide TAB* 400 MG PO SCH (09:16)
[2016-07-11] MEDS: Atorvastatin* 10 MG TAB PO SCH (09:16)
[2016-07-11] MEDS: Aspirin Low Dose CHEW TAB* 81 MG PO SCH (09:16)
--- NOTE | 2016-07-11 10:33 | PN ---
Subjective Date of Service: 07/11/16 Interval History: Patient seen and examined at bedside. He replies, "I don't think so" when asked if he has any general discomfort or chest pain. He states "I think my breathing is okay." Patient's son is at bedside and reports that his father has had worsening weakness and tires more easily. He also cites audible wheezing with activity. At baseline, the patient is able to transfer himself to and from his wheelchair and walk short distances. No acute nursing concerns. Family History: Unchanged from Admission Social History: Unchanged from Admission Past Medical History: Unchanged from Admission Objective Active Medications: Albuterol/Ipratropium (Duoneb Neb.Ada*) 1 neb INH [id number] AWAKE [facility] Last Admin: 07/11/16 09:29 Dose: Not Given Albuterol/Ipratropium (Duoneb Neb.Ada*) 1 neb INH Q4H PRN PRN Reason: SOB/WHEEZING Aspirin (Aspirin Low Dose Tab*) 81 mg PO DAILY [facility] Last Admin: 07/11/16 09:16 Dose: 81 mg Atorvastatin Calcium (Lipitor*) 10 mg PO DAILY [facility] Last Admin: 07/11/16 09:16 Dose: 10 mg Doxycycline Hyclate (Vibramycin Cap(*)) 100 mg PO BID [facility] Last Admin: 07/11/16 09:15 Dose: 100 mg Furosemide (Lasix Tab*) 20 mg PO QAM [facility] Last Admin: 07/11/16 09:15 Dose: 20 mg Sodium Chloride (Ns 0.9% 1000 Ml*) 1,000 mls @ 150 mls/hr IV PER RATE [facility] Last Admin: 07/10/16 18:33 Dose: 150 mls/hr Sodium Chloride (Ns 0.9% 1000 Ml*) 1,000 mls @ 100 mls/hr IV PER RATE [facility] Last Admin: 07/11/16 08:08 Dose: 100 mls/hr Magnesium Oxide (Magox 400 Tab*) 400 mg PO DAILY [facility] Last Admin: 07/11/16 09:16 Dose: 400 mg Methylprednisolone Sodium Succinate (Solu-Medrol*) 60 mg IV Q12H [facility] Last Admin: 07/11/16 09:15 Dose: 60 mg Metoprolol Succinate (Toprol Xl Tab*) 50 mg PO DAILY [facility] Last Admin: 07/11/16 09:15 Dose: 50 mg Multivitamins ( Vitamin Tab*) 1 tab PO DAILY [facility] Last Admin: 07/11/16 09:15 Dose: 1 tab Oseltamivir Phosphate (Tamiflu Cap*) 30 mg PO 0900,2100 [facility] Last Admin: 07/11/16 09:15 Dose: 30 mg Potassium Chloride (Klor Con Er Tab*) 20 meq PO DAILY [facility] Last Admin: 07/11/16 09:15 Dose: 20 meq Terazosin HCl (Hytrin Cap*) 10 mg PO BEDTIME [facility] Last Admin: 07/10/16 22:04 Dose: 10 mg Warfarin Sodium (Coumadin Tab(*)) 4 mg PO 1700 [facility] PRN Reason: Protocol Vital Signs 07/10/16 07/10/16 07/10/16 19:25 19:30 20:00 Temperature 98.9 F Pulse Rate 77 89 37 Respiratory 17 20 21 Rate Blood Pressure 148/78 162/143 (mmHg) O2 Sat by Pulse 96 95 89 Oximetry 07/10/16 07/10/16 07/10/16 21:00 22:20 22:22 Temperature 97.3 F Pulse Rate 98 72 Respiratory 20 20 20 Rate Blood Pressure 122/99 144/99 (mmHg) O2 Sat by Pulse 96 92 Oximetry 07/10/16 07/10/16 07/11/16 22:41 23:37 04:40 Temperature 98.0 F 97.3 F Pulse Rate 97 99 Respiratory 20 16 15 Rate Blood Pressure 153/90 173/83 (mmHg) O2 Sat by Pulse 97 97 Oximetry 07/11/16 07/11/16 08:26 09:34 Temperature 97.8 F Pulse Rate 90 88 Respiratory 20 16 Rate Blood Pressure 182/103 (mmHg) O2 Sat by Pulse 94 93 Oximetry Oxygen Devices in Use Now: Nasal Cannula - 2Lnc Appearance: Older male patient, lying in bed, in NAD Eyes: PERRLA Ears/Nose/Mouth/Throat: Clear Oropharnyx, Mucous Membranes Moist Neck: NL Appearance and Movements; NL JVP Respiratory: Symmetrical Chest Expansion and Respiratory Effort, - - expiratory wheezing throughout all lung salvador Cardiovascular: RRR Abdominal: NL Sounds; No Tenderness; No Distention Extremities: No Clubbing, Cyanosis - +1 BLE pitting edema Neurological: Alert and Oriented x 3 - with expressive aphasia Lines/Tubes/Other Access: Clean, Dry and Intact Peripheral IV Nutrition: Taking PO's Result Diagrams: 07/11/16 04:14 07/11/16 04:14 Additional Lab and Data: Lab Results 07/10/16 07/10/16 07/10/16 Range/Units 16:55 16:55 16:55 WBC 11.4 H (3.5-10.8) 10^3/ul RBC 5.22 (4.0-5.4) 10^6/ul Hgb 13.5 L (14.0-18.0) g/dl Hct 43 (42-52) % MCV 82 (80-94) fL MCH 26 L (27-31) pg MCHC 32 (31-36) g/dl RDW 16 H (10.5-15) % Plt Count 167 (150-450) 10^3/ul MPV 10 (7.4-10.4) um3 Neut % (Auto) 86.0 H (38-83) % Lymph % (Auto) 7.4 L (25-47) % Newton % (Auto) 5.5 (1-9) % Eos % (Auto) 0.6 (0-6) % Baso % (Auto) 0.5 (0-2) % Absolute Neuts (auto) 9.8 H (1.5-7.7) 10^3/ul Absolute Lymphs (auto) 0.8 L (1.0-4.8) 10^3/ul Absolute Monos (auto) 0.6 (0-0.8) 10^3/ul Absolute Eos (auto) 0.1 (0-0.6) 10^3/ul Absolute Basos (auto) 0.1 (0-0.2) 10^3/ul Absolute Nucleated RBC 0 10^3/ul Nucleated RBC % 0 INR (Anticoag Therapy) 2.93 H (0.89-1.11) APTT 34.6 (26.0-36.3) seconds Sodium 137 (133-145) mmol/L Potassium TNP Chloride 100 L (101-111) mmol/L Carbon Dioxide 31 (22-32) mmol/L Anion Gap TNP BUN 24 (6-24) mg/dL Creatinine 0.96 (0.67-1.17) mg/dL Est GFR ( Amer) 95.5 (>60) Est GFR (Non-Af Amer) 74.3 (>60) BUN/Creatinine Ratio 25.0 H (8-20) Glucose 170 H (70-100) mg/dL Lactic Acid (0.5-2.0) mmol/L Calcium 9.7 (8.6-10.3) mg/dL Magnesium 1.7 L (1.9-2.7) mg/dL Total Bilirubin 0.70 (0.2-1.0) mg/dL AST TNP ALT 26 (7-52) U/L Alkaline Phosphatase 65 (34-104) U/L Total Creatine Kinase 72 (10-223) U/L CK-MB (CK-2) 8.3 H (0.6-6.3) ng/mL Troponin I 0.05 H* (<0.04) ng/mL C-Reactive Protein 13.49 H (< 5.00) mg/L B-Natriuretic Peptide ( - 100) pg/mL Total Protein 7.3 (6.4-8.9) g/dL Albumin 3.7 (3.2-5.2) g/dL Globulin 3.6 (2-4) g/dL Albumin/Globulin Ratio 1.0 (1-3) Lipase 22 (11.0-82.0) U/L TSH 1.97 (0.34-5.60) mcIU/mL 07/10/16 07/10/16 07/10/16 Range/Units 16:55 16:55 18:15 WBC (3.5-10.8) 10^3/ul RBC (4.0-5.4) 10^6/ul Hgb (14.0-18.0) g/dl Hct (42-52) % MCV (80-94) fL MCH (27-31) pg MCHC (31-36) g/dl RDW (10.5-15) % Plt Count (150-450) 10^3/ul MPV (7.4-10.4) um3 Neut % (Auto) (38-83) % Lymph % (Auto) (25-47) % Newton % (Auto) (1-9) % Eos % (Auto) (0-6) % Baso % (Auto) (0-2) % Absolute Neuts (auto) (1.5-7.7) 10^3/ul Absolute Lymphs (auto) (1.0-4.8) 10^3/ul Absolute Monos (auto) (0-0.8) 10^3/ul Absolute Eos (auto) (0-0.6) 10^3/ul Absolute Basos (auto) (0-0.2) 10^3/ul Absolute Nucleated RBC 10^3/ul Nucleated RBC % INR (Anticoag Therapy) (0.89-1.11) APTT (26.0-36.3) seconds Sodium (133-145) mmol/L Potassium 3.8 Chloride (101-111) mmol/L Carbon Dioxide (22-32) mmol/L Anion Gap BUN (6-24) mg/dL Creatinine (0.67-1.17) mg/dL Est GFR ( Amer) (>60) Est GFR (Non-Af Amer) (>60) BUN/Creatinine Ratio (8-20) Glucose (70-100) mg/dL Lactic Acid 1.2 (0.5-2.0) mmol/L Calcium (8.6-10.3) mg/dL Magnesium (1.9-2.7) mg/dL Total Bilirubin (0.2-1.0) mg/dL AST 32 ALT (7-52) U/L Alkaline Phosphatase (34-104) U/L Total Creatine Kinase (10-223) U/L CK-MB (CK-2) (0.6-6.3) ng/mL Troponin I (<0.04) ng/mL C-Reactive Protein (< 5.00) mg/L B-Natriuretic Peptide 360 H ( - 100) pg/mL Total Protein (6.4-8.9) g/dL Albumin (3.2-5.2) g/dL Globulin (2-4) g/dL Albumin/Globulin Ratio (1-3) Lipase (11.0-82.0) U/L TSH (0.34-5.60) mcIU/mL Assess/Plan/Problems-Billing Assessment: Mr. Slaughter is an 86 yo male with a PMH of atrial fibrillation, HTN, COPD, CVA with expressive aphasia, and recent influenza who presented to the ED on 07/10 with concern for SOB, cough, wheezing, and weakness. - Patient Problems (1) Shortness of breath Code(s): R06.02 - SHORTNESS OF BREATH Comment: Recently diagnosed with influenza, discharged on 07/07. Now with increased SOB, wheezing, cough - possibly secondary to COPD flare or developing pneumonia. Repeat CXR in AM. Continue IV steroids, nebulizers, doxycycline. Has been afebrile, leukocytosis improved today. (2) Influenza A Code(s): J10.1 - FLU DUE TO OTH IDENT INFLUENZA VIRUS W OTH RESP MANIFEST Comment: Afebrile, continue Tamiflu. (3) COPD (chronic obstructive pulmonary disease) Code(s): J44.9 - CHRONIC OBSTRUCTIVE PULMONARY DISEASE, UNSPECIFIED Comment: With increased SOB, wheezing in the presence of recent influenza and concern for CAP Continue nebulizers, solumedrol (4) HTN (hypertension) Code(s): I10 - ESSENTIAL (PRIMARY) HYPERTENSION Comment: BP is under fair control, SBP 140s-150s. Continue terazosin and metoprolol. (5) History of CVA in adulthood Code(s): Z86.73 - PRSNL HX OF TIA (TIA), AND CEREB INFRC W/O RESID DEFICITS Comment: No signs of CVA this admission. Continue ASA, coumadin. (6) Urinary retention due to benign prostatic hyperplasia Code(s): N28.89 - OTHER SPECIFIED DISORDERS OF KIDNEY AND URETER; R33.8 - OTHER RETENTION OF URINE Comment: The patient had >1L of urine in his bladder during last admission. Continue ramirez catheter. Patient should continue follow-up with urology as outpatient. (7) Afib Code(s): I48.91 - UNSPECIFIED ATRIAL FIBRILLATION Comment: Rate controlled. Continue metoprolol and coumadin. INR is in therapeutic range. (8) DVT prophylaxis Code(s): PAA4637 - Comment: Warfarin Therapeutic INR (9) DNR (do not resuscitate) Comment: DNR/DNI [facility] Status and Disposition: OBV admit. D/c to [facility] when medically stable. PT consult to ensure patient is stable and safe for discharge.
[2016-07-11 11:10] LABS: Urine Bacteria Absent (Absent); Urine Bilirubin Negative (Negative); Urine Glucose Negative (Negative); Urine Nitrite Negative (Negative)
[2016-07-11] MEDS: Warfarin TAB(*) 4 MG PO SCH (17:01)
[2016-07-11] MEDS: Terazosin CAP* 5 MG PO SCH (20:16)
[2016-07-11 20:57] LABS: Hematocrit 39 % (42-52); Hemoglobin 11.8 g/dl (14.0-18.0); Mean Corpuscular HGB Conc 31 g/dl (31-36); Mean Corpuscular Hemoglobin 26 pg (27-31); Mean Corpuscular Volume 83 fL (80-94); Mean Platelet Volume 10 um3 (7.4-10.4); Red Blood Count 4.64 10^6/ul (4.0-5.4); Red Cell Distribution Width 16 % (10.5-15); White Blood Count 13.3 10^3/ul (3.5-10.8)
[2016-07-11 21:07] LABS: Comments Flag Yes
[2016-07-12] MEDS: Albuterol/Ipratropium NEB.SOL* Albuterol 2.5 MG/Ipratropium 0.5 MG 3 ML INH SCH ×2 (03:00→18:05)
[2016-07-12] MEDS: methylPREDNISolone SOD SUCC* 125 MG 2 ML VIAL IV SCH (08:45)
[2016-07-12] MEDS: DOXYcycline CAP(*) 100 MG PO SCH ×2 (08:46→21:35)
[2016-07-12] MEDS: Oseltamivir CAP* 30 MG CAP PO SCH (08:46)
[2016-07-12] MEDS: Potassium Chlor TAB* 20 MEQ TAB.ER PO SCH (08:46)
[2016-07-12] MEDS: Magnesium Oxide TAB* 400 MG PO SCH (08:47)
[2016-07-12] MEDS: Aspirin Low Dose CHEW TAB* 81 MG PO SCH (08:48)
[2016-07-12] MEDS: Prenatal Vitamin TAB PO SCH (08:48)
[2016-07-12] MEDS: Atorvastatin* 10 MG TAB PO SCH (08:48)
[2016-07-12] MEDS: Furosemide TAB* 20 MG PO SCH (08:48)
[2016-07-12] MEDS: Metoprolol Succinate XL TAB* 50 MG PO SCH (08:49)
--- NOTE | 2016-07-12 08:51 | RAD ---
INDICATION: Shortness of breath and cough COMPARISON: Similar chest x-ray dated July 10, 2016 TECHNIQUE: Single AP portable view of the chest was obtained. FINDINGS: Image quality is compromised due to the relative inferiority of a portable chest x-ray. Similar the previous chest x-ray there is mild cardiomegaly and coarse calcification overlying the arch of the aorta. Similar the previous chest x-ray, the pulmonary vasculature is prominent and mildly indistinct. There is patchy density at the medial right lung base, worse appearing since the previous chest x-ray. There is bibasilar costophrenic angle blunting. Visualized bones are normal for the patient's age. IMPRESSION: Chest x-ray findings are again most consistent with cardiogenic pulmonary edema with overall worsening aeration when compared to the previous chest x-ray. Appearance of density at the medial right lung base could represent infiltrate in the correct clinical setting.
[2016-07-12] MEDS ORDERED: Spiriva Inhaler DEVICE* 1 EACH DEVICE INH ONE (16:00)
[2016-07-12] MEDS: Warfarin TAB(*) 4 MG PO SCH (16:47)
[2016-07-12] MEDS ORDERED: Furosemide IV* 10 MG/ML 2 ML VIAL (20 MG) IV ONE (18:07)
--- NOTE | 2016-07-12 18:10 | PN ---
Subjective Date of Service: 07/12/16 Interval History: This is an 86 yo gentleman with COPD, h/o CVA with expressive aphasia with recent admission for influenza who returned to the ER with COPD exacerbation and increased weakness. Patient offers no complaints today but appears confused. Denies CP, SOB, abd pain, n/v, dyspnea. Objective Active Medications: Albuterol/Ipratropium (Duoneb Neb.Ada*) 1 neb INH Q4H PRN PRN Reason: SOB/WHEEZING Last Admin: 07/11/16 17:10 Dose: 1 neb Aspirin (Aspirin Low Dose Tab*) 81 mg PO DAILY [facility] Last Admin: 07/12/16 08:48 Dose: 81 mg Atorvastatin Calcium (Lipitor*) 10 mg PO DAILY [facility] Last Admin: 07/12/16 08:48 Dose: 10 mg Doxycycline Hyclate (Vibramycin Cap(*)) 100 mg PO BID [facility] Last Admin: 07/12/16 08:46 Dose: 100 mg Furosemide (Lasix Tab*) 20 mg PO QAM [facility] Last Admin: 07/12/16 08:48 Dose: 20 mg Magnesium Oxide (Magox 400 Tab*) 400 mg PO DAILY [facility] Last Admin: 07/12/16 08:47 Dose: 400 mg Metoprolol Succinate (Toprol Xl Tab*) 50 mg PO DAILY [facility] Last Admin: 07/12/16 08:49 Dose: 50 mg Multivitamins ( Vitamin Tab*) 1 tab PO DAILY [facility] Last Admin: 07/12/16 08:48 Dose: 1 tab Potassium Chloride (Klor Con Er Tab*) 20 meq PO DAILY [facility] Last Admin: 07/12/16 08:46 Dose: 20 meq Prednisone (Deltasone Tab*) 40 mg PO DAILY [facility] Terazosin HCl (Hytrin Cap*) 10 mg PO BEDTIME [facility] Last Admin: 07/11/16 20:16 Dose: 10 mg Tiotropium [place] (Spiriva Cap.Inh*) 1 cap INH DAILY [facility] Warfarin Sodium (Coumadin Tab(*)) 4 mg PO 1700 [facility] PRN Reason: Protocol Last Admin: 07/12/16 16:47 Dose: 4 mg Vital Signs 07/12/16 07/12/16 15:12 15:19 Temperature 97.5 F Pulse Rate 73 62 Respiratory 16 Rate Blood Pressure 190/117 145/111 (mmHg) O2 Sat by Pulse 93 96 Oximetry Oxygen Devices in Use Now: Nasal Cannula - 2Lnc Appearance: Well appearing, alert, but confused Neck: NL Appearance and Movements; NL JVP Respiratory: Symmetrical Chest Expansion and Respiratory Effort, - - faint exp wheeze appreciated in posterior lung salvador Cardiovascular: NL Sounds; No Murmurs; No JVD, RRR Abdominal: NL Sounds; No Tenderness; No Distention Extremities: - - 2+ LE edema Skin: No Rash or Ulcers Neurological: - - alert, confused Result Diagrams: 07/11/16 20:48 07/11/16 04:14 Additional Lab and Data: . Diagnostic Imaging: CXR - mild PVC, cardiomegaly, ?R basilar infiltrate Assess/Plan/Problems-Billing Assessment: Mr. Slaughter is an 86 yo male with a PMH of atrial fibrillation, HTN, COPD, CVA with expressive aphasia, and recent influenza who presented to the ED on 07/10 with concern for SOB, cough, wheezing, and weakness readmitted with COPD exacerbation - Patient Problems (1) COPD exacerbation Comment: Recent influenza infection Cont doxycycline and steroids, but transition to oral prednisone Cont nebs Start Spiriva (2) Influenza A Comment: Recent admission Afebrile Completed 5 day course of Tamiflu (3) Urinary retention due to benign prostatic hyperplasia Comment: The patient had >1L of urine in his bladder during last admission. Continue ramirez catheter. Patient should continue follow-up with urology as outpatient. (4) Afib Comment: Rate controlled. Continue metoprolol and coumadin. INR is in therapeutic range. (5) HTN (hypertension) Comment: Noted to be hypertensive today, ? steroids Also appears fluid overloaded, will diuress with IV Lasix (6) H/O: CVA (cerebrovascular accident) Comment: With expressive aphasia Also appears to have mild dementia, ?vascular Status and Disposition: Convert to inpatient. Possibly ready for dc tomorrow.
[2016-07-12] MEDS: Tiotropium CAP.INH* CAP.INH/18 MCG INH SCH (18:22)
[2016-07-12] MEDS: Terazosin CAP* 5 MG PO SCH (21:35)
[2016-07-13 08:40] VITALS: BP 149/80
[2016-07-13] MEDS: Magnesium Oxide TAB* 400 MG PO SCH (08:59)
[2016-07-13] MEDS: Metoprolol Succinate XL TAB* 50 MG PO SCH (09:00)
[2016-07-13] MEDS: Prenatal Vitamin TAB PO SCH (09:00)
[2016-07-13] MEDS ORDERED: predniSONE TAB* 20 MG PO SCH (09:00)
[2016-07-13] MEDS: Aspirin Low Dose CHEW TAB* 81 MG PO SCH (09:00)
[2016-07-13] MEDS: Furosemide TAB* 20 MG PO SCH (09:00)
[2016-07-13] MEDS: Atorvastatin* 10 MG TAB PO SCH (09:00)
[2016-07-13] MEDS: DOXYcycline CAP(*) 100 MG PO SCH (09:00)
[2016-07-13] MEDS: Potassium Chlor TAB* 20 MEQ TAB.ER PO SCH (09:01)
[2016-07-13] MEDS: Tiotropium CAP.INH* CAP.INH/18 MCG INH SCH (09:07)
--- NOTE | 2016-07-13 10:35 | DS ---
DATE OF ADMISSION: 07/10/2016. DATE OF DISCHARGE: 07/13/2016. PRIMARY CARE PROVIDER: Dr. Saul Contreras. DISCHARGING PROVIDER: ELEAZAR Forbes. SUPERVISING PHYSICIAN: Dr. Logan Kim.* (DICTATED BY ELEAZAR FORBES) PRIMARY DISCHARGE DIAGNOSES: 1. COPD exacerbation. 2. Recent influenza infection. SECONDARY DISCHARGE DIAGNOSES: 1. Urinary retention with Hyman catheter in place requiring outpatient urology follow-up. 2. Hypertension. 3. Atrial fibrillation, anticoagulated on Coumadin. 4. History of cerebrovascular accident with expressive aphasia. DISCHARGE MEDICATIONS: 1. DuoNeb's inhaled q.4 hours while awake. 2. Aspirin 81 mg p.o. daily. 3. Doxycycline 100 mg p.o. b.i.d. times 7 days. 4. Lasix 20 mg p.o. daily. 5. Ipratropium 0.03 percent solution 2 sprays in both nares twice daily at meal time. 6. Metoprolol succinate 50 mg p.o. daily. 7. Multivitamin one tablet p.o. daily. 8. Potassium chloride 20 mEq p.o. daily. 9. Simvastatin 20 mg p.o. daily. 10. Terazosin 10 mg p.o. at bedtime. 11. Spiriva one capsule inhaled daily. 12. Coumadin 4 mg p.o. daily. 13. Prednisone as follows: 40 mg daily times 3 days, followed by 20 mg daily times 3 days, followed by 10 mg daily times 3 days. Medication changes: 1. Discontinue Tamiflu. 2. Start Doxycycline times 7 days. 3. Prednisone taper as above. HOSPITAL IMAGIN. EKG shows atrial fibrillation with a rate of about 100 beats per minute without acute ischemic changes. 2. Chest x-ray at admission, 07/10/2016 shows stigmata consistent with COPD, but no acute process. 3. Repeat chest x-ray, 07/12/2016 shows evidence of pulmonary venous congestion appears worse than prior possible right lung infiltrate, but this finding is subtle. HOSPITAL COURSE: This is an 86-year-old gentleman with a history of prior CVA with an expressive aphasia, as well as COPD, hypertension, atrial fibrillation, recent diagnosis of urinary retention with a Hyman catheter in place as well as recent hospital admission for influenza who returned to the hospital with complaints of increased shortness of breath and weakness. The patient was admitted July 02 through July 07 with influenza. He was treated with Tamiflu at that time and discharged home. Unfortunately, after returning home his shortness of breath became worse with associated weakness and malaise. He subsequently returned to the emergency department. Chest x-ray at the time of readmission showed no acute infiltrate. He had a mild leukocytosis with a white blood cell count of 11,400. He was afebrile. The patient did have a wheeze appreciated on lung exam and the patient was subsequently admitted for COPD exacerbation in the setting of recent influenza infection. The patient was treated with corticosteroids and his Tamiflu was initially continued. He did complete a full course of Tamiflu, so he does not require additional Tamiflu at the time of discharge. He was empirically started on Doxycycline for antimicrobial coverage for COPD exacerbation. He was also started on Spiriva and continued on DuoNeb's. The patient's respiratory complaints resolved. Physical Therapy evaluated him and he appeared to be near his baseline functional status and the patient denied any acute concerns. No wheeze or significant rhonchi appreciated on exam at the time of discharge. DISPOSITION: The patient is being discharged to [place] where he is a chronic resident. He does not require additional Tamiflu. He will be discharged with a Prednisone taper, add Spiriva to his COPD regimen, and an additional seven days of Doxycycline. The patient should see his primary care provider within three to five days of discharge. As a part of the patient's last hospital admission, he was noted to have urinary retention and a Hyman catheter was placed and the patient does require outpatient Urology follow-up regarding this. No additional work-up has been done during this hospital admission and Hyman catheter was not changed. ELEAZAR FORBES CC: Dr. Saul Contreras* [id number]/[facility] #: [id number] MANN
== END 2016-07-13 15:00 | disposition home or self-care (01) | DRG 194 ==
LOC: ED 16:11 → MED 19:24 → OBSVTOIN 07-12 14:54
PROVIDERS: ADMIT Hospitalist; ATTEND Hospitalist
DX: J10.1 Influenza due to other identified influenza virus with other respiratory manifestations (principal); J44.1 Chronic obstructive pulmonary disease with (acute) exacerbation; I48.91 Unspecified atrial fibrillation; I69.320 Aphasia following cerebral infarction; I10 Essential (primary) hypertension; E78.5 Hyperlipidemia, unspecified; G47.33 Obstructive sleep apnea (adult) (pediatric); N40.1 Benign prostatic hyperplasia with lower urinary tract symptoms; R33.8 Other retention of urine; Z66 Do not resuscitate; Z79.82 Long term (current) use of aspirin; Z79.01 Long term (current) use of anticoagulants; Z82.49 Family history of ischemic heart disease and other diseases of the circulatory system; Z79.52 Long term (current) use of systemic steroids; Z79.899 Other long term (current) drug therapy; Z87.891 Personal history of nicotine dependence
CPT/HCPCS: 36415; 71010; 80048; 80053; 81003; 81015; 82550; 82553; 83605; 83690; 83735; 83880; 84443; 84484; 85025; 85610; 85730; 86140; 87040; 87086; 93005; 94640; 94760; 99284; A9270-GY; G0378; G8978-GP-CJ; G8979-GP-CI; J0696; J1940; J2930; J7512

== ENCOUNTER 2016-07-24 00:54 | Inpatient (IN) | payer MEDICARE ==
[2016-07-24] MEDS ORDERED: Albuterol/Ipratropium NEB.SOL* Albuterol 2.5 MG/Ipratropium 0.5 MG 3 ML INH ONE (00:57)
[2016-07-24] MEDS ORDERED: methylPREDNISolone SOD SUCC* 125 MG 2 ML VIAL IV ONE (00:57)
[2016-07-24 01:44] LABS: PCO2 Arterial 41 mmHg (35-45)
[2016-07-24 01:50] LABS: Hematocrit 46 % (42-52); Hemoglobin 14.6 g/dl (14.0-18.0); Mean Corpuscular HGB Conc 32 g/dl (31-36); Mean Corpuscular Hemoglobin 26 pg (27-31); Mean Corpuscular Volume 83 fL (80-94); Mean Platelet Volume 10 um3 (7.4-10.4); Red Blood Count 5.58 10^6/ul (4.0-5.4); Red Cell Distribution Width 17 % (10.5-15); White Blood Count 9.1 10^3/ul (3.5-10.8)
[2016-07-24 02:02] LABS: Albumin 3.8 g/dL (3.2-5.2); BUN/Creatinine Ratio 20.9 (8-20); Calcium 9.4 mg/dL (8.6-10.3); EGFR African American 62.3 (>60); EGFR Non-African American 48.4 (>60); Globulin 3.5 g/dL (2-4); Total Bilirubin 0.7 mg/dL (0.2-1.0); Total Protein 7.3 g/dL (6.4-8.9)
[2016-07-24 02:07] LABS: Troponin I 0.06 ng/mL (<0.04)
--- NOTE | 2016-07-24 02:17 | ED ---
Ann Govea Matthew, scribed for Felipe Mitchell on 07/24/16 at 0138 . Shortness of Breath - HPI Summary HPI Summary: An 86 y/o male presents to the ED with SOB and altered mental status. A complete HPI was unable to be obtained, because the patient has dementia. The patient states that he feels fine. - History of Current Complaint Chief Complaint: EDRespiratoryDistress Hx Obtained From: Patient Hx From Patient Unobtainable Due To: Altered Mental Status Onset/Duration: Still Present Timing: Constant Current Severity: Moderate Dyspnea At: Rest - Allergy/Home Medications Allergies/Adverse Reactions: Allergies Allergy/AdvReac Type Severity Reaction Status Date / Time No Known Allergies Allergy Verified 07/24/16 00:59 PMH/Surg Hx/FS Hx/Imm Hx Endocrine/Hematology History: Denies: Hx Diabetes Cardiovascular History: Reports: Hx Hypertension, Other Cardiovascular Problems/ Disorders - AFIB Denies: Hx Pacemaker/ICD Respiratory History: Reports: Hx Asthma, Hx Chronic Obstructive Pulmonary Disease (COPD), Hx Pulmonary Edema History: Denies: Hx Renal Disease Musculoskeletal History: Reports: Hx Arthritis Sensory History: Reports: Hx Contacts or Glasses Denies: Hx Hearing Aid Opthamlomology History: Reports: Hx Contacts or Glasses Neurological History: Reports: Hx Dementia, Hx Transient Ischemic Attacks (TIA) Psychiatric History: Denies: Hx Panic Disorder - Immunization History Date of Tetanus Vaccine: unknown Infectious Disease History: No Infectious Disease History: Denies: Traveled Outside the [place] in Last 30 Days - Family History Known Family History: Positive: Cardiac Disease - father - [place] at 52 - Social History Alcohol Use: None Hx Substance Use: No Substance Use Type: Reports: None Hx Tobacco Use: Yes Smoking Status (MU): Former Smoker Type: Cigarettes Review of Systems Positive: Shortness Of Breath All Other Systems Reviewed And Are Negative: No - Comments Additional Review of Systems Comments: A complete ROS was unable to be obtained, because the patient has altered mental status. Physical Exam Triage Information Reviewed: Yes Vital Signs On Initial Exam: Initial Vitals Temp Pulse Resp BP Pulse Ox 98.1 F 124 24 146/126 92 07/24/16 01:01 07/24/16 01:01 07/24/16 01:01 07/24/16 01:01 07/24/16 01:01 Vital Signs Reviewed: Yes Appearance: Positive: No Pain Distress Skin: Positive: Warm, Skin Color Reflects Adequate Perfusion, Dry Head/Face: Positive: Normal Head/Face Inspection Eyes: Positive: EOMI, JOEY ENT: Positive: Normal ENT inspection Neck: Positive: Supple, Nontender Respiratory/Lung Sounds: Positive: Breath Sounds Present, Wheezes - bilaterally Cardiovascular: Positive: RRR, Pulses are Symmetrical in both Upper and Lower Extremities Abdomen Description: Positive: Nontender, Soft Bowel Sounds: Positive: Present Musculoskeletal: Positive: Normal, Strength/ROM Intact Neurological: Positive: Sensory/Motor Intact - Corona Coma Scale Coma Scale Total: 13 Diagnostics - Vital Signs Vital Signs Temp Pulse Resp BP Pulse Ox 07/24/16 01:01 98.1 F 124 24 146/126 92 - Laboratory Lab Results: Lab Results 07/24/16 07/24/16 07/24/16 Range/Units 01:32 01:35 01:35 WBC 9.1 (3.5-10.8) 10^3/ul RBC 5.58 H (4.0-5.4) 10^6/ul Hgb 14.6 (14.0-18.0) g/dl Hct 46 (42-52) % MCV 83 (80-94) fL MCH 26 L (27-31) pg MCHC 32 (31-36) g/dl RDW 17 H (10.5-15) % Plt Count 139 L (150-450) 10^3/ul MPV 10 (7.4-10.4) um3 Neut % (Auto) 80.1 (38-83) % Lymph % (Auto) 9.6 L (25-47) % Meigs % (Auto) 7.1 (1-9) % Eos % (Auto) 2.4 (0-6) % Baso % (Auto) 0.8 (0-2) % Absolute Neuts (auto) 7.3 (1.5-7.7) 10^3/ul Absolute Lymphs (auto) 0.9 L (1.0-4.8) 10^3/ul Absolute Monos (auto) 0.6 (0-0.8) 10^3/ul Absolute Eos (auto) 0.2 (0-0.6) 10^3/ul Absolute Basos (auto) 0.1 (0-0.2) 10^3/ul Absolute Nucleated RBC 0 10^3/ul Nucleated RBC % 0 ABG pH 7.43 (7.35-7.45) ABG pCO2 41 (35-45) mmHg ABG pO2 60 L (80-100) mmHg ABG HCO3 26.7 (19-31) mmol/L ABG O2 Saturation 92.5 L (95-98) % ABG Base Excess 2.6 H (-2.0-2.0) Sodium 134 (133-145) mmol/L Potassium 4.0 (3.5-5.0) mmol/L Chloride 98 L (101-111) mmol/L Carbon Dioxide 29 (22-32) mmol/L Anion Gap 7 (2-11) mmol/L BUN 29 H (6-24) mg/dL Creatinine 1.39 H (0.67-1.17) mg/dL Est GFR ( Amer) 62.3 (>60) Est GFR (Non-Af Amer) 48.4 (>60) BUN/Creatinine Ratio 20.9 H (8-20) Glucose 159 H (70-100) mg/dL Lactic Acid (0.5-2.0) mmol/L Calcium 9.4 (8.6-10.3) mg/dL Total Bilirubin 0.70 (0.2-1.0) mg/dL AST 27 (13-39) U/L ALT 25 (7-52) U/L Alkaline Phosphatase 75 (34-104) U/L Troponin I 0.06 H* (<0.04) ng/mL B-Natriuretic Peptide ( - 100) pg/mL Total Protein 7.3 (6.4-8.9) g/dL Albumin 3.8 (3.2-5.2) g/dL Globulin 3.5 (2-4) g/dL Albumin/Globulin Ratio 1.1 (1-3) 07/24/16 07/24/16 Range/Units 01:35 01:35 WBC (3.5-10.8) 10^3/ul RBC (4.0-5.4) 10^6/ul Hgb (14.0-18.0) g/dl Hct (42-52) % MCV (80-94) fL MCH (27-31) pg MCHC (31-36) g/dl RDW (10.5-15) % Plt Count (150-450) 10^3/ul MPV (7.4-10.4) um3 Neut % (Auto) (38-83) % Lymph % (Auto) (25-47) % Meigs % (Auto) (1-9) % Eos % (Auto) (0-6) % Baso % (Auto) (0-2) % Absolute Neuts (auto) (1.5-7.7) 10^3/ul Absolute Lymphs (auto) (1.0-4.8) 10^3/ul Absolute Monos (auto) (0-0.8) 10^3/ul Absolute Eos (auto) (0-0.6) 10^3/ul Absolute Basos (auto) (0-0.2) 10^3/ul Absolute Nucleated RBC 10^3/ul Nucleated RBC % ABG pH (7.35-7.45) ABG pCO2 (35-45) mmHg ABG pO2 (80-100) mmHg ABG HCO3 (19-31) mmol/L ABG O2 Saturation (95-98) % ABG Base Excess (-2.0-2.0) Sodium (133-145) mmol/L Potassium (3.5-5.0) mmol/L Chloride (101-111) mmol/L Carbon Dioxide (22-32) mmol/L Anion Gap (2-11) mmol/L BUN (6-24) mg/dL Creatinine (0.67-1.17) mg/dL Est GFR ( Amer) (>60) Est GFR (Non-Af Amer) (>60) BUN/Creatinine Ratio (8-20) Glucose (70-100) mg/dL Lactic Acid 1.1 (0.5-2.0) mmol/L Calcium (8.6-10.3) mg/dL Total Bilirubin (0.2-1.0) mg/dL AST (13-39) U/L ALT (7-52) U/L Alkaline Phosphatase (34-104) U/L Troponin I (<0.04) ng/mL B-Natriuretic Peptide 256 H ( - 100) pg/mL Total Protein (6.4-8.9) g/dL Albumin (3.2-5.2) g/dL Globulin (2-4) g/dL Albumin/Globulin Ratio (1-3) Result Diagrams: 07/24/16 01:35 07/24/16 01:35 Lab Statement: Any lab studies that have been ordered have been reviewed, and results considered in the medical decision making process. - Radiology CXR Xray Interpretation: No Acute Changes Radiology Interpretation Completed By: ED Physician - EKG 01:08 Cardiac Rate: Tachycardia - 130 bpm EKG Rhythm: Atrial Fibrillation EKG Interpretation: RVR Course/Dx - Course Assessment/Plan: An 86 y/o male presents to the ED with SOB and altered mental status. Labs were reviewed. CXR shows no acute changes. EKG shows AFib at 130 bpm with RVR. Discussed the case with Dr. Johnson who will admit the patient into his services. - Diagnoses Provider Diagnoses: COPD exacerbation, ACS (acute coronary syndrome), A-fib - Physician Notifications Discussed Care of Patient With: Dr. Johnson (Hospitalist) at 2:00 -- Notified of patient's history and will admit the patient into his services. Discharge - Discharge Plan Condition: Stable Disposition: ADMITTED TO [facility] Referrals: Saul Contreras MD [Primary Care Provider] - The documentation as recorded by the Ann green Matthew accurately reflects the service I personally performed and the decisions made by , Felipe Mitchell.
[2016-07-24 02:24] LABS: Urine Bacteria Absent (Absent); Urine Bilirubin Negative (Negative); Urine Glucose Negative (Negative); Urine Nitrite Negative (Negative)
[2016-07-24] MEDS ORDERED: Albuterol 2.5 MG/3 ML NEB.SOL* (0.083%) INH PRN (08:01)
--- NOTE | 2016-07-24 08:26 | HP ---
H&P (Free Text) History and Physical: Critical Care Medicine Admission Note (H&P) Elderly male resident of an assisted care living center for whom EMS was called to site re dyspnea. Patient found dyspneic in wheelchair and described as cyanotic. Patient has history of COPD/Asthma and EMS describes presence of wheezing throughout. He was treated with bronchodilator by EMS and brought to ER. It appears he received another treatment in ER and was referred to the nocturnal Hospitalist for admission. Dr Johnson admitted patient to ICU and contacted Dr Gomez for assistance with admission early this AM. Patient in ICU is resting comfortably on low flow O2 in bed. NKDA Medications include: Coumadin 4 mg, ASA 81 mg, Metoprolol 50 mg daily, Combivent 2x/day, Ipratroprium nasal spray to each nostril twice daily, MVI daily, Prednisone 10 mg/day, Lasix 20 mg/day, KCl 20 meq/day , Tiotroprium once daily, Simvastatin 20mg/dayTerazosin 10 mg/day PMH: A Fib, HTN, BPH with urinary retention, recent bout Influenza, CVA with expressive aphasia, ANTIONETTE, Hyperlipidemia Soc Hx resides at [facility]...has DNR status Son is HCP Former Tobacco, negative EtOH Fam Hx (+)CAD/VA (father) ROS nonrevealing since last admission per paperwork made available from facility SBP 114 HR 97 1rreg RR 17-18 SpO2 94-95 (NC) Skin scattered ecchymoses, no cyanosis, no diaphoresis Sclerae anicteric, pupils equal Oral mucosa pink Lungs with scattered fine wheezes centrally in upper chest, decreased BS bases, no rales, no rhonchi Cor Irreg, no murmur, no rub Abd soft, nontender ramirez Ext mild edema DP 1(+)bilat LUE PIV WBC 9.1 Hgb 14.6 Plt 139 INR 3.08 BNP 256 (lower than during prior hospitalization) Trop 0.06 7.43/41/60 Lact 1.1 K 4.0 BUN/Creat 29/1.39 Urine SG 1.020 1(+) Leuc esterase No bacteria seen on smear CXR no confluent infiltrate, no atelectasis, no PVC IMP: Dyspnea with bronchospasm which has been relieved post 2 bronchodilator treatments - perhaps triggered by transient mucus plugging or small volume aspiration. Rapid relief of dyspnea bodes against a full exacerbation of COPD. Normal WBC, lack of infiltrate on CXR, lack of fever nena against presence of tracheopulmonary infection. Lack of PVC and relatively low BNP nena against CHF. Hx A Fib...rate controlled now with relief of dyspnea and INR just above therapeutic target Hx HTN...controlled Pre-renal azotemia with concentrated urine....appears c/w hypovolemia....UA looks suspicious with traumatic collection Hx CVA with expressive aphasia Hx Urinary retention Peripheral edema PLAN/REC: DuoNebs Q 6 hrs Proventil Nebs Q4 hrs PRN Will increase Prednisone to 20 mg daily Continue low flow O2 Fluid challenge with NS 500 ml x1 Will hold lasix and K for now Will send Urine cx though am dubious of presence of UTI Coumadin (pharmacy to manage) and ASA as usual Metoprolol as usual Simvastatin as usual Terazosin as usual Keep HOB raised Will request swallow evaluation though lack of any reports of dysphasia in pre-hospital setting make this unlikely to be the case Check Troponin again this AM Respect DNR status established previously
[2016-07-24] MEDS ORDERED: NS 0.9% 500 ML BAG* 500 ML IV ONE (09:00)
[2016-07-24] MEDS: Albuterol/Ipratropium NEB.SOL* Albuterol 2.5 MG/Ipratropium 0.5 MG 3 ML INH SCH ×3 (09:16→19:36)
[2016-07-24] MEDS ORDERED: D5NS 0.9% 1000 ML BAG* 1,000 ML IV SCH (16:00)
[2016-07-24] MEDS: predniSONE TAB* 20 MG PO SCH (16:25)
[2016-07-24] MEDS: Metoprolol Succinate XL TAB* 50 MG PO SCH (16:25)
[2016-07-24] MEDS: Aspirin Low Dose CHEW TAB* 81 MG PO SCH (16:25)
[2016-07-24] MEDS: Atorvastatin* 10 MG TAB PO SCH (16:25)
[2016-07-24] MEDS: Terazosin CAP* 5 MG PO SCH (16:26)
--- NOTE | 2016-07-24 16:34 | PN ---
Progress Note - Progress Note Note: CCM Progress Note INR today high...holding any further Coumadin till comes down into therapeutic rate Started IVF as has spent much of day sleeping Cancelled CT Head as did awake and was quite interactive Speaking with daughter earlier she raised comment that she "just want him to be comfortable" Explored what this might mean with her and there seemed to be an interest in moving to comfort oriented care and to not have patient hospitalized in the future. She contacted her brother who is HCP....he is trying to get a better handle on where his father's disease state is before moving to comfort care but they both reinforce that patient is DNR and DNI. Son is also concerned that [facility] may not be best place for his father now in his current state of disease To transfer out as has been breathing comfortably since seen at ~7 AM on low flow O2...family aware of plans Called Dr Kim re transfer
[2016-07-24] MEDS ORDERED: Warfarin TAB(*) 4 MG PO ONE ×2 (17:00)
[2016-07-25] MEDS: Albuterol/Ipratropium NEB.SOL* Albuterol 2.5 MG/Ipratropium 0.5 MG 3 ML INH SCH ×4 (01:50→20:59)
[2016-07-25 07:07] LABS: Hematocrit 46 % (42-52); Mean Corpuscular HGB Conc 31 g/dl (31-36); Mean Corpuscular Hemoglobin 26 pg (27-31); Mean Corpuscular Volume 84 fL (80-94); Mean Platelet Volume 10 um3 (7.4-10.4); Red Blood Count 5.44 10^6/ul (4.0-5.4); Red Cell Distribution Width 17 % (10.5-15); White Blood Count 11.6 10^3/ul (3.5-10.8)
[2016-07-25 07:10] LABS: Comments Flag Yes
[2016-07-25] MEDS: Aspirin Low Dose CHEW TAB* 81 MG PO SCH (10:07)
[2016-07-25] MEDS: Atorvastatin* 10 MG TAB PO SCH (10:10)
[2016-07-25] MEDS: predniSONE TAB* 20 MG PO SCH (10:10)
[2016-07-25] MEDS: Terazosin CAP* 5 MG PO SCH (10:10)
[2016-07-25] MEDS: Metoprolol Succinate XL TAB* 50 MG PO SCH (10:11)
--- NOTE | 2016-07-25 12:14 | RAD ---
INDICATION: Short of breath COMPARISON: July 12, 2016 TECHNIQUE: An AP portable view obtained at 0110 hours is submitted. FINDINGS: Bones/Soft Tissues: There are no acute bony findings. Cardiomediastinal: The cardiomediastinal silhouette is normal. Lungs: There are no infiltrates. Pleura: There are no pleural effusions. Other: None IMPRESSION: NO ACTIVE DISEASE.
[2016-07-25 12:34] LABS: BUN/Creatinine Ratio 19.9 (8-20); Calcium 9.5 mg/dL (8.6-10.3); EGFR African American 63.9 (>60); EGFR Non-African American 49.7 (>60); Potassium 3.9 mmol/L (3.5-5.0)
[2016-07-25] MEDS ORDERED: Haloperidol TAB* 1 MG PO PRN (14:59)
--- NOTE | 2016-07-25 15:57 | PN ---
Subjective Date of Service: 07/25/16 Interval History: HOSPITALIST PROGRESS NOTE Patient seen and examined at bedside. He offers no complaints at this time, only requests more water. Family History: Unchanged from Admission Social History: Unchanged from Admission Past Medical History: Unchanged from Admission Objective Active Medications: Albuterol (Ventolin 2.5 Mg/3 Ml Neb.Ada*) 2.5 mg INH Q4H PRN PRN Reason: SOB/WHEEZING Albuterol/Ipratropium (Duoneb Neb.Ada*) 1 neb INH [id number] AWAKE [facility] Last Admin: 07/25/16 14:07 Dose: 1 neb Aspirin (Aspirin Low Dose Tab*) 81 mg PO DAILY [facility] Last Admin: 07/25/16 10:07 Dose: 81 mg Atorvastatin Calcium (Lipitor*) 10 mg PO DAILY [facility] Last Admin: 07/25/16 10:10 Dose: 10 mg Haloperidol (Haldol Tab*) 1 mg PO Q6H PRN PRN Reason: AGITATION Metoprolol Succinate (Toprol Xl Tab*) 50 mg PO DAILY [facility] Last Admin: 07/25/16 10:11 Dose: 50 mg Pharmacy Profile Note (Coumadin Per Pharmacy*) 1 note FOLLOW UP .PER PHARMACY PROTOC [facility] PRN Reason: Protocol Prednisone (Deltasone Tab*) 20 mg PO DAILY [facility] Last Admin: 07/25/16 10:10 Dose: 20 mg Terazosin HCl (Hytrin Cap*) 10 mg PO DAILY [facility] Last Admin: 07/25/16 10:10 Dose: 10 mg Vital Signs 07/25/16 07/25/16 07/25/16 07:38 07:53 14:15 Temperature 97.8 F Pulse Rate 141 75 76 Respiratory 16 18 20 Rate Blood Pressure 132/82 (mmHg) O2 Sat by Pulse 91 98 98 Oximetry Oxygen Devices in Use Now: Nasal Cannula Appearance: Elderly male sitting up in a chair in NAD. Eyes: No Scleral Icterus Ears/Nose/Mouth/Throat: Mucous Membranes Moist Neck: Trachea Midline Respiratory: Symmetrical Chest Expansion and Respiratory Effort, - - BS+ bilaterally decreased, no added sounds Cardiovascular: - - Normal S1 and S2, irregularly irregular Abdominal: NL Sounds; No Tenderness; No Distention Neurological: - - AAOx1 (self), CHEATHAM Lines/Tubes/Other Access: Clean, Dry and Intact Peripheral IV Nutrition: Taking PO's Result Diagrams: 07/25/16 06:49 07/25/16 11:44 Assess/Plan/Problems-Billing Assessment: Mr. Slaughter is an 86yo M with PMH of HTN, Afib on AC, HLD, COPD, CVAx2, BPH with urinary retention and chronic Hyman, ANTIONETTE, multiple recent admissions for sepsis secondary to UTI, influenza, and COPD exacerbation, who was sent to ED with severe dyspnea, initially admitted to ICU, but with quick improvement. - Patient Problems (1) Acute respiratory failure with hypoxia Comment: - This is his 4th admission since - 3rd one with COPD related issues. - Critical care input appreciated - although patient was described as in respiratory distress, tripoding, he improved quickly, so ICU attending felt his bronchospasm was triggered by mucus plug or small volume aspiration. - No compelling evidence for COPD or CHF exacerbation, or infection. - Not on antibiotics and seems to be back to baseline. - Continue bronchodilators and steroids. - Passed RN bedside swallow evaluation, awaiting formal Speech pathology eval. (2) Afib Comment: - Rate is controlled - continue Metoprolol. (3) Supratherapeutic INR Comment: - INR is 7.6 with no signs of bleeding. - Continue to hold Warfarin and monitor INR. (4) HTN (hypertension) Comment: - Controlled. - Continue Metoprolol and Terazosin. (5) SULMA (acute kidney injury) Comment: - Suspect secondary to dehydration - received IVF during the day and will encourage PO intake. - Hyman catheter in place draining yellow urine. - Continue to monitor renal function. (6) Confusion Comment: - Unclear how far he's from his baseline as he seems to be confused during all his admissions and I'm not sure if he improved in between. - Suspect a component of delirium at this time. - Low dose Haldol as needed for agitation. (7) BPH (benign prostatic hyperplasia) Comment: - With urinary retention, now with chronic Hyman. - Continue Terazosin. (8) DVT prophylaxis Comment: - Warfarin on hold due to supratherapeutic INR. (9) High risk for readmission Comment: - This is his 4th admission since May for infectious issues, mostly respiratory. - May need a higher level of care at this point. - Will try to contact family for possible Palliative care consult. Status and Disposition: Inpatient.
[2016-07-26] MEDS: Albuterol/Ipratropium NEB.SOL* Albuterol 2.5 MG/Ipratropium 0.5 MG 3 ML INH SCH ×4 (01:35→19:04)
[2016-07-26 06:23] LABS: Hematocrit 39 % (42-52); Hemoglobin 13.1 g/dl (14.0-18.0); Mean Corpuscular HGB Conc 33 g/dl (31-36); Mean Corpuscular Hemoglobin 33 pg (27-31); Mean Corpuscular Volume 99 fL (80-94); Mean Platelet Volume 7 um3 (7.4-10.4); Red Blood Count 3.98 10^6/ul (4.0-5.4); White Blood Count 4.6 10^3/ul (3.5-10.8)
[2016-07-26 06:26] LABS: Comments Flag Yes; Red Cell Distribution Width 24 % (10.5-15)
[2016-07-26 06:27] LABS: Add Diff/Slide Review? Slide Review Added
[2016-07-26 06:29] LABS: BUN/Creatinine Ratio 9.4 (8-20); EGFR Non-African American 59.1 (>60); Potassium 3.8 mmol/L (3.5-5.0)
[2016-07-26] MEDS: Atorvastatin* 10 MG TAB PO SCH (08:24)
[2016-07-26] MEDS: Metoprolol Succinate XL TAB* 50 MG PO SCH (08:24)
[2016-07-26] MEDS: Terazosin CAP* 5 MG PO SCH (08:24)
[2016-07-26] MEDS: Aspirin Low Dose CHEW TAB* 81 MG PO SCH (08:24)
[2016-07-26] MEDS: predniSONE TAB* 20 MG PO SCH (08:24)
[2016-07-26] MEDS ORDERED: NS 0.9% 1000 ML* 1,000 ML IV SCH (10:00)
[2016-07-26] MEDS ORDERED: Phytonadione Oral Solution* 5 MG/25 ML UDC PO ONE (18:00)
--- NOTE | 2016-07-26 18:30 | PN ---
Subjective Date of Service: 07/26/16 Interval History: . Interviewed and examined patient at bedside; Discussed case with Dr. Fitzgerald ; Reviewed previous notes and radiology results; Spoke with his son, Yvette We agreed that NH placement would be best given this patient's current inability to care for himself. Will work with care management staff ; preference stated for [facility]. . Family History: Unchanged from Admission Social History: Unchanged from Admission Past Medical History: Unchanged from Admission Objective Active Medications: . Albuterol (Ventolin 2.5 Mg/3 Ml Neb.Ada*) 2.5 mg INH Q4H PRN PRN Reason: SOB/WHEEZING Albuterol/Ipratropium (Duoneb Neb.Ada*) 1 neb INH [id number] AWAKE [facility] Last Admin: 07/26/16 13:41 Dose: 1 neb Aspirin (Aspirin Low Dose Tab*) 81 mg PO DAILY [facility] Last Admin: 07/26/16 08:24 Dose: 81 mg Atorvastatin Calcium (Lipitor*) 10 mg PO DAILY [facility] Last Admin: 07/26/16 08:24 Dose: 10 mg Haloperidol (Haldol Tab*) 1 mg PO Q6H PRN PRN Reason: AGITATION Metoprolol Succinate (Toprol Xl Tab*) 50 mg PO DAILY [facility] Last Admin: 07/26/16 08:24 Dose: 50 mg Pharmacy Profile Note (Coumadin Per Pharmacy*) 1 note FOLLOW UP .PER PHARMACY PROTOC [facility] PRN Reason: Protocol Prednisone (Deltasone Tab*) 20 mg PO DAILY [facility] Last Admin: 07/26/16 08:24 Dose: 20 mg Terazosin HCl (Hytrin Cap*) 10 mg PO DAILY [facility] Last Admin: 07/26/16 08:24 Dose: 10 mg . Vital Signs 07/25/16 07/25/16 07/26/16 20:00 23:37 07:27 Temperature 97.8 F 97.3 F Pulse Rate 81 106 96 Respiratory 20 16 Rate Blood Pressure 131/81 145/75 (mmHg) O2 Sat by Pulse 95 91 97 Oximetry 07/26/16 07/26/16 07/26/16 07:34 07:49 08:01 Temperature Pulse Rate 86 84 Respiratory 16 20 14 Rate Blood Pressure (mmHg) O2 Sat by Pulse 97 97 Oximetry Oxygen Devices in Use Now: Nasal Cannula Result Diagrams: 07/26/16 05:40 07/26/16 05:40 Additional Lab and Data: . Assess/Plan/Problems-Billing . Assessment: Mr. Slaughter is an 86yo M with PMH of HTN, Afib on AC, HLD, COPD, CVAx2, BPH with urinary retention and chronic Hyman, ANTIONETTE, multiple recent admissions for sepsis secondary to UTI, influenza, and COPD exacerbation, who was sent to ED with severe dyspnea, initially admitted to ICU, but with quick improvement. Current Medications: - Albuterol (Ventolin 2.5 Mg/3 Ml Neb.Ada*) 2.5 mg INH Q4H PRN SOB/WHEEZING - Albuterol/Ipratropium (Duoneb Neb.Ada*) 1 neb INH [id number] AWAKE [facility] - Aspirin (Aspirin Low Dose Tab*) 81 mg PO DAILY [facility] - Atorvastatin Calcium (Lipitor*) 10 mg PO DAILY [facility] - Haloperidol (Haldol Tab*) 1 mg PO Q6H PRN AGITATION - Metoprolol Succinate (Toprol Xl Tab*) 50 mg PO DAILY [facility] - Prednisone (Deltasone Tab*) 20 mg PO DAILY [facility] - Terazosin HCl (Hytrin Cap*) 10 mg PO DAILY [facility] - Patient Problems (1) Acute respiratory failure with hypoxia Current Visit: Yes Status: Acute Priority: High Code(s): J96.01 - ACUTE RESPIRATORY FAILURE WITH HYPOXIA Comment: - This is his 4th admission since - 3rd one with COPD related issues. - Critical care input appreciated - although patient was described as in respiratory distress, tripoding, he improved quickly, so ICU attending felt his bronchospasm was triggered by mucus plug or small volume aspiration. - No compelling evidence for COPD or CHF exacerbation, or infection. - Not on antibiotics and seems to be back to baseline. - Continue bronchodilators and steroids. - Passed RN bedside swallow evaluation, awaiting formal Speech pathology eval. (2) Afib Current Visit: Yes Status: Acute Code(s): I48.91 - UNSPECIFIED ATRIAL FIBRILLATION Comment: - Rate is controlled - continue Metoprolol. (3) SULMA (acute kidney injury) Current Visit: Yes Status: Acute Priority: High Code(s): N17.9 - ACUTE KIDNEY FAILURE, UNSPECIFIED Comment: - Suspect secondary to dehydration - received IVF during the day and will encourage PO intake. - Hyman catheter in place draining yellow urine. - Continue to monitor renal function. (4) BPH (benign prostatic hyperplasia) Current Visit: Yes Status: Acute Priority: High Code(s): N40.0 - BENIGN PROSTATIC HYPERPLASIA WITHOUT LOWER URINRY TRACT SYMP Comment: - With urinary retention, now with chronic Hyman. - Continue Terazosin. (5) Confusion Current Visit: Yes Status: Acute Code(s): R41.0 - DISORIENTATION, UNSPECIFIED Comment: - Unclear how far he's from his baseline as he seems to be confused during all his admissions and I'm not sure if he improved in between. - Suspect a component of delirium at this time. - Low dose Haldol as needed for agitation. (6) High risk for readmission Current Visit: Yes Status: Acute Code(s): Z91.89 - OTH PERSONAL RISK FACTORS , NOT ELSEWHERE CLASSIFIED Comment: - This is his 4th admission since May for infectious issues, mostly respiratory. - May need a higher level of care at this point. - Will try to contact family for possible Palliative care consult. (7) Supratherapeutic INR Current Visit: Yes Status: Acute Priority: High Code(s): R79.1 - ABNORMAL COAGULATION PROFILE Comment: - INR is 7.6 with no signs of bleeding. - Continue to hold Warfarin and monitor INR. (8) HTN (hypertension) Current Visit: Yes Status: Chronic Code(s): I10 - ESSENTIAL (PRIMARY) HYPERTENSION Comment: - Controlled. - Continue Metoprolol and Terazosin. (9) DVT prophylaxis Current Visit: Yes Status: Acute Priority: High Code(s): WGU8541 - Comment: - Warfarin on hold due to supratherapeutic INR. - Vitamin K today Status and Disposition: Inpatient.
[2016-07-27] MEDS: Albuterol/Ipratropium NEB.SOL* Albuterol 2.5 MG/Ipratropium 0.5 MG 3 ML INH SCH ×4 (01:05→19:48)
[2016-07-27 06:59] LABS: Hematocrit 41 % (42-52); Mean Platelet Volume 10 um3 (7.4-10.4)
[2016-07-27] MEDS: Atorvastatin* 10 MG TAB PO SCH (09:11)
[2016-07-27] MEDS: Metoprolol Succinate XL TAB* 50 MG PO SCH (09:11)
[2016-07-27] MEDS: predniSONE TAB* 20 MG PO SCH (09:11)
[2016-07-27] MEDS: Aspirin Low Dose CHEW TAB* 81 MG PO SCH (09:11)
[2016-07-27] MEDS: Terazosin CAP* 5 MG PO SCH (09:11)
[2016-07-27] MEDS ORDERED: Warfarin TAB(*) 1 MG PO ONE (17:00)
[2016-07-27] MEDS ORDERED: Haloperidol INJ IV/IM* 5 MG/ML AMP IM ONE (19:58)
[2016-07-28] MEDS: Albuterol/Ipratropium NEB.SOL* Albuterol 2.5 MG/Ipratropium 0.5 MG 3 ML INH SCH ×2 (02:58→08:01)
[2016-07-28 07:22] VITALS: BP 147/78
[2016-07-28] MEDS: Aspirin Low Dose CHEW TAB* 81 MG PO SCH (09:18)
[2016-07-28] MEDS: Metoprolol Succinate XL TAB* 50 MG PO SCH (09:19)
[2016-07-28] MEDS: Atorvastatin* 10 MG TAB PO SCH (09:19)
[2016-07-28] MEDS: predniSONE TAB* 20 MG PO SCH (09:19)
[2016-07-28] MEDS: Terazosin CAP* 5 MG PO SCH (09:19)
--- NOTE | 2016-07-28 10:12 | CONSULT ---
Palliative / Hospice Consult Ordering Provider: Robert Maki - Subjective Code Status: DNR Advance Directives Location: In Chart MOLST Part A Completed: Yes MOLST Part E Completed:: Yes - History or Present Illness History or Present Illness: This 86 year old man has been a resident at [facility], with PMH of AF, HTN, CVA with subsequent expressive aphasia, BPH with urinary retnetion, and COPD with RAD. Palliative care consultation was requested because the patient has had multiple hospital admissions since May, and because he will need attention to his disposition as he is most likely unable to live independently any more. The patient was able to speak with me but was unable to provide any meaningful history, as he is not oriented to place or time and was even unable to recall his childrens' names. Reviewing the record, it is true this patient has had 4 admissions since May , but these were all for different problems. In May he was admitted with urinary retention and UTI due to his BPH, in June he was admitted with suspected UTI in the setting of influenza, and he was admitted briefly July 12 to for SOB and cough, which cleared quickly. On this occasion he was brought to the ER with cyanosis and dyspnea, but this was due to an exacerbation of his asthma/RAD and again resolved quickly and he has maintained O2 sats in the 90's on 2 L O2. He has never required intubation and until recently was treated only with albuterol and nasal ipratropium. Lab Values: Abnormal Lab Results 07/28/16 06:55 INR (Anticoag Therapy) 1.32 H Laboratory Last Values WBC 4.6 10^3/ul (3.5-10.8) 07/26/16 05:40 RBC 3.98 10^6/ul (4.0-5.4) L 07/26/16 05:40 Hgb 13.0 g/dl (14.0-18.0) L 07/27/16 06:12 Hct 41 % (42-52) L 07/27/16 06:12 MCV 99 fL (80-94) H 07/26/16 05:40 MCH 33 pg (27-31) H 07/26/16 05:40 MCHC 33 g/dl (31-36) 07/26/16 05:40 RDW 24 % (10.5-15) H 07/26/16 05:40 Plt Count 120 10^3/ul (150-450) L 07/27/16 06:12 MPV 10 um3 (7.4-10.4) 07/27/16 06:12 Neut % (Auto) 47.2 % (38-83) 07/26/16 05:40 Lymph % (Auto) 24.6 % (25-47) L 07/26/16 05:40 Floyd % (Auto) 15.4 % (1-9) H 07/26/16 05:40 Eos % (Auto) 12.1 % (0-6) H 07/26/16 05:40 Baso % (Auto) 0.7 % (0-2) 07/26/16 05:40 Absolute Neuts (auto) 2.2 10^3/ul (1.5-7.7) 07/26/16 05:40 Absolute Lymphs (auto) 1.1 10^3/ul (1.0-4.8) 07/26/16 05:40 Absolute Monos (auto) 0.7 10^3/ul (0-0.8) 07/26/16 05:40 Absolute Eos (auto) 0.6 10^3/ul (0-0.6) 07/26/16 05:40 Absolute Basos (auto) 0 10^3/ul (0-0.2) 07/26/16 05:40 Absolute Nucleated RBC 0.01 10^3/ul 07/26/16 05:40 Nucleated RBC % 0.3 07/26/16 05:40 Hem Pathologist Commnt 07/26/16 05:40 INR (Anticoag Therapy) 1.32 (0.89-1.11) H 07/28/16 06:55 ABG pH 7.43 (7.35-7.45) 07/24/16 01:32 ABG pCO2 41 mmHg (35-45) 07/24/16 01:32 ABG pO2 60 mmHg (80-100) L 07/24/16 01:32 ABG HCO3 26.7 mmol/L (19-31) 07/24/16 01:32 ABG O2 Saturation 92.5 % (95-98) L 07/24/16 01:32 ABG Base Excess 2.6 (-2.0-2.0) H 07/24/16 01:32 Sodium 137 mmol/L (133-145) 07/26/16 05:40 Potassium 3.8 mmol/L (3.5-5.0) 07/26/16 05:40 Chloride 111 mmol/L (101-111) 07/26/16 05:40 Carbon Dioxide 22 mmol/L (22-32) 07/26/16 05:40 Anion Gap 4 mmol/L (2-11) 07/26/16 05:40 BUN 11 mg/dL (6-24) 07/26/16 05:40 Creatinine 1.17 mg/dL (0.67-1.17) 07/26/16 05:40 Est GFR ( Amer) 76.0 (>60) 07/26/16 05:40 Est GFR (Non-Af Amer) 59.1 (>60) 07/26/16 05:40 BUN/Creatinine Ratio 9.4 (8-20) 07/26/16 05:40 Glucose 123 mg/dL (70-100) H 07/26/16 05:40 Lactic Acid 1.1 mmol/L (0.5-2.0) 07/24/16 01:35 Calcium 7.0 mg/dL (8.6-10.3) L 07/26/16 05:40 Total Bilirubin 0.70 mg/dL (0.2-1.0) 07/24/16 01:35 AST 27 U/L (13-39) 07/24/16 01:35 ALT 25 U/L (7-52) 07/24/16 01:35 Alkaline Phosphatase 75 U/L (34-104) 07/24/16 01:35 Troponin I 0.04 ng/mL (<0.04) H* 07/24/16 10:35 B-Natriuretic Peptide 256 pg/mL (-100) H 07/24/16 01:35 Total Protein 7.3 g/dL (6.4-8.9) 07/24/16 01:35 Albumin 3.8 g/dL (3.2-5.2) 07/24/16 01:35 Globulin 3.5 g/dL (2-4) 07/24/16 01:35 Albumin/Globulin Ratio 1.1 (1-3) 07/24/16 01:35 Urine Color Yellow 07/24/16 02:10 Urine Appearance Cloudy 07/24/16 02:10 Urine pH 5.0 (5-9) 07/24/16 02:10 Ur Specific Galliano 1.020 (1.010-1.030) 07/24/16 02:10 Urine Protein 1+(30 mg/dl) (Negative) H 07/24/16 02:10 Urine Ketones Negative (Negative) 07/24/16 02:10 Urine Blood Negative (Negative) 07/24/16 02:10 Urine Nitrate Negative (Negative) 07/24/16 02:10 Urine Bilirubin Negative (Negative) 07/24/16 02:10 Urine Urobilinogen Negative (Negative) 07/24/16 02:10 Ur Leukocyte Esterase 1+ (Negative) H 07/24/16 02:10 Urine WBC (Auto) 2+(11-20/hpf) (Absent) H 07/24/16 02:10 Urine RBC (Auto) 2+(6-10/hpf) (Absent) H 07/24/16 02:10 Urine Bacteria Absent (Absent) 07/24/16 02:10 Hyaline Casts Present (Absent) H 07/24/16 02:10 Urine Glucose Negative (Negative) 07/24/16 02:10 Urine Ascorbic Acid * (Negative) H 07/24/16 02:10 - Objective Active Medications: Albuterol (Ventolin 2.5 Mg/3 Ml Neb.Ada*) 2.5 mg INH Q4H PRN PRN Reason: SOB/WHEEZING Albuterol/Ipratropium (Duoneb Neb.Ada*) 1 neb INH RT.[id number] AWAKE [facility] Last Admin: 07/28/16 08:01 Dose: 1 neb Aspirin (Aspirin Low Dose Tab*) 81 mg PO DAILY [facility] Last Admin: 07/28/16 09:18 Dose: 81 mg Atorvastatin Calcium (Lipitor*) 10 mg PO DAILY [facility] Last Admin: 07/28/16 09:19 Dose: 10 mg Haloperidol (Haldol Tab*) 1 mg PO Q6H PRN PRN Reason: AGITATION Metoprolol Succinate (Toprol Xl Tab*) 50 mg PO DAILY [facility] Last Admin: 07/28/16 09:19 Dose: 50 mg Pharmacy Profile Note (Coumadin Per Pharmacy*) 1 note FOLLOW UP .PER PHARMACY PROTOC [facility] PRN Reason: Protocol Prednisone (Deltasone Tab*) 20 mg PO DAILY [facility] Last Admin: 07/28/16 09:19 Dose: 20 mg Terazosin HCl (Hytrin Cap*) 10 mg PO DAILY [facility] Last Admin: 07/28/16 09:19 Dose: 10 mg Vital Signs: Vital Signs: Temp Pulse Resp BP Pulse Ox 97.3 F 102 16 147/78 94 07/28/16 07:21 07/28/16 08:04 07/28/16 08:04 07/28/16 07:21 07/28/16 08:04 Patient Weight: Weight 216 lb 7.903 oz Intake and Output: Intake & Output 07/26/16 07/27/16 07/28/16 07/29/16 06:59 06:59 06:59 06:59 Intake Total 440 720 800 690 Output Total 1400 1150 700 Balance -960 -430 100 690 Intake: IV Fluids 200 D5W NS (0.9%) 200 Oral 240 720 800 690 Output: Urine 600 Hyman 800 1150 700 Other: # Bowel Movements 0 0 0 # Voids 2 ADLs: Meal Record Start: 07/24/16 04: 48 Freq: ,,18 Status: Complete Created 07/24/16 04:48 System (Rec: 07/24/16 04:48 System ICU-C06) Document 07/24/16 10:33 [id number] (Rec: 07/24/16 10:35 [id number] ICU-C16) Document 07/24/16 14:06 [id number] (Rec: 07/24/16 14:08 [id number] ICU-C16) ADLs: Meal Record Start: 07/24/16 19: 19 Freq: DAILY@0900,1400,1800 Status: Active Created 07/24/16 19:19 [id number] (Rec: 07/24/16 19:19 [id number] MED-C13) Document 07/25/16 09:00 [id number] (Rec: 07/25/16 11:00 [id number] MED-C11) Document 07/25/16 13:55 [id number] (Rec: 07/25/16 13:55 [id number] MED-C11) Document 07/26/16 09:00 [id number] (Rec: 07/26/16 10:54 [id number] MED-C09) Document 07/26/16 14:00 [id number] (Rec: 07/26/16 14:45 [id number] MED-C09) Document 07/26/16 18:00 [id number] (Rec: 07/26/16 18:25 [id number] MED-C09) Document 07/27/16 09:00 [id number] (Rec: 07/27/16 10:57 [id number] MED-C09) Document 07/27/16 13:58 [id number] (Rec: 07/27/16 13:58 [id number] MED-C11) Document 07/27/16 18:00 QJY1661 (Rec: 07/27/16 22:36 [id number] MEDL-C02) Document 07/28/16 09:00 [id number] (Rec: 07/28/16 09:45 [id number] MED-C09) Intake and Output Start: 07/24/16 01: 05 Freq: Status: Active Created 07/24/16 01:05 System (Rec: 07/24/16 01:05 System EDRM-C16) Document 07/24/16 02:23 [id number] (Rec: 07/24/16 02:23 [id number] ED-C29) Intake and Output Start: 07/24/16 04: 48 Freq: 06,14,22 Status: Complete Created 07/24/16 04:48 System (Rec: 07/24/16 04:48 System ICU-C06) Document 07/24/16 07:17 [id number] (Rec: 07/24/16 07:18 [id number] ICU-C16) Document 07/24/16 07:39 [id number] (Rec: 07/24/16 07:39 [id number] ICU-C16) Document 07/24/16 14:06 [id number] (Rec: 07/24/16 14:08 [id number] ICU-C16) Intake and Output Start: 07/24/16 19: 19 Freq: DAILY@0600,1400,2200 Status: Active Created 07/24/16 19:19 [id number] (Rec: 07/24/16 19:19 [id number] MED-C13) Document 07/24/16 22:00 [id number] (Rec: 07/24/16 22:20 [id number] MED-C11) Document 07/25/16 04:54 [id number] (Rec: 07/25/16 04:54 EQK1552 MED-C42) Document 07/25/16 12:18 IZT1240 (Rec: 07/25/16 12:19 [id number] MED-C11) Document 07/25/16 21:49 [id number] (Rec: 07/25/16 21:50 [id number] MED-M13) Document 07/26/16 06:00 DZK2135 (Rec: 07/26/16 06:27 [id number] MEDL-C01) Document 07/26/16 14:00 [id number] (Rec: 07/26/16 14:45 [id number] MED-C09) Document 07/26/16 22:00 [id number] (Rec: 07/26/16 22:28 [id number] MED-C09) Document 07/27/16 06:00 [id number] (Rec: 07/27/16 06:09 QKW0150 MEDL-C01) Document 07/27/16 13:58 [id number] (Rec: 07/27/16 13:58 QYM2162 MED-C11) Document 07/27/16 22:00 [id number] (Rec: 07/27/16 22:37 [id number] MEDL-C02) Document 07/28/16 05:37 [id number] (Rec: 07/28/16 05:37 [id number] MED-C26) General Impression: Pleasant, confused gentleman in NAD attempting to peruse a newspaper in Nelda chair. Head: Normal Eyes: No Scleral Icterus Ears/Nose/Mouth/Throat: Mucous Membranes Moist Neck: Trachea Midline Cardiovascular: - - Normal S1 and S2, irregularly irregular Respiratory: Symmetrical Chest Expansion and Respiratory Effort, - - I:E ratio ~ 1:2, with expiratory wheezes throughout. Abdominal: NL Sounds; No Tenderness; No Distention Extremities: - - 2+ edema of the ankles extending to the knees bilaterally Neurological: - - AAOx1 (self), CHEATHAM. Attempts confabulation. - Assessment Assessment: This 86 year old man has several comorbid conditions, none of which are life- threatening at this time, and he h as had recurrent admissions for various problems that are mostly unrelated. His RAD/COPD is pervasive but could be controlled with regular inhaled ipratropium (he only had nasal ipratropium until early this month) and he has apparently never been given inhaled steroids , which would improve his respiratory status immensely. He has not had CO2 retention as far as I am able to ascertain, and has never required mechanical ventilation. His dementia is fairly significant and I think he would be better able to avoid future hospitalizations if her were in a more supervised setting such as a SNF. I understand the patient's son Yvette is looking into placement at [facility]. Thanks for asking for palliative input. - Plan Consult Plan (MU): Palliative - Time On Unit Date of Evaluation: 07/28/16 Hospice Consult Time in: 09:45 Hospice Consult Time Out: 10:30 Hospice Consult Time Total: 45 > 50% of Time Spend In Counseling or Coordinating Care: Yes
--- NOTE | 2016-07-28 13:59 | DS ---
CC: Ailyn Hardy MD; Saul Contreras MD TRANSFER SUMMARY: DATE OF ADMISSION: 07/24/16 DATE OF DISCHARGE: 07/28/16 STATUS DURING HOSPITALIZATION: Inpatient. PRIMARY CARE PHYSICIAN: Saul Contreras MD The patient is being transferred to [facility]. Dr. Hardy, who is going to be following the cassidy humphrey at [facility]. PRINCIPAL DISCHARGE DIAGNOSIS: Chronic obstructive pulmonary disease exacerbation versus mucus plug with rapid resolution, but with evidence of failure of thrive in assisted living and need for care to meet the patient's ADLs and IADLs. DISCHARGE MEDICATION REGIMEN: 1. Prednisone 10 mg by mouth daily. 2. Warfarin 4 mg by mouth q.h.s. 3. Tiotropium vs Spiriva 1 capsule inhale daily. 4. Terazosin 10 mg by mouth daily. 5. Simvastatin 20 mg by mouth daily. 6. Potassium chloride 20 mEq by mouth daily. 7. Multivitamin 1 tablet by mouth once daily. 8. Prostate capsule (OTC?) 3 capsules by mouth daily. 9. Metoprolol XL 50 mg by mouth daily. 10. Ipratropium bromide nasal spray 0.6% one spray both nares twice daily. 11. Furosemide 20 mg by mouth daily. 12. Aspirin 81 mg by mouth daily. 13. Albuterol 1 inhalation twice daily p.r.n. shortness of breath. 14. DuoNeb 3 mg strength nebulizer q.4 hours p.r.n. shortness of breath. 15. Acetaminophen 650 mg by mouth every 4 hours p.r.n. pain/fever. HISTORY OF PRESENT ILLNESS/HOSPITAL COURSE: Please see the H and P by Dr. Mohit Lindsay on 07/24/16 . In brief, Mr. Slaughter is an 86-year-old gentleman, who is a resident of assisted care living [facility] and was brought to the hospital by EMS regarding respiratory distress. The patient was described cyanotic, but was not found as such by the ED staff. There was wheezing throughout on presentation . He was treated with bronchodilators by EMS, brought to the hospital, and quickly resolved raising the possibility of a mucus plug. The patient was treated with IV steroids initially, but was raise d to prednisone 20 mg daily and was on 10 mg as an outpatient. The patient was fluid challenged wit h normal saline and was repetitively normotensive. The patient normally takes Lasix. The patient w as found to have very high INR and received a dose of vitamin K. I am not sure if this was secondar y to poor intake recently or the treatment with antibiotics, which was happening in the outpatient s etting. The patient was treated with antibiotics in the hospital, but this was stopped with his rap id resolution in fact he was on doxycycline before he came into the hospital. The patient is stable for transfer, but after speaking with the patient's son it became clear that he needs more than ass isted living, in particular with toileting and food acquisition and the general level of concern leana t seems to arise regarding this patient who has been hospitalized multiple times in 2017 already. For that reason, the patient was referred to [facility] who kindly accepted the patient on 07/28 and the patient is currently stable for transfer. He can come back, of course, to the emergency room for any worrisome symptoms that arise including shortness of breath, lightheadedness, fevers, chills, or any other worrisome signs or symptoms. The patient understands this and this was also co mmunicated through nursing channels to the [facility] staff. CONDITION AT TRANSFER: Stable. [id number]/CPS #: [id number]
--- NOTE | 2016-07-30 13:00 | PN ---
Hospitalist Progress Note . HOSPITALIST DISCHARGE NOTE: See dc instructions and summary by me. Patient stable for dc dc instructions reviewed with the patient at the bedside. DC patient to [place] today.
--- NOTE | 2016-07-30 13:02 | PN ---
Subjective Date of Service: 07/27/16 Interval History: no changes reported by patient no c/o Family History: Unchanged from Admission Social History: Unchanged from Admission Past Medical History: Unchanged from Admission Objective Active Medications: see MAR 07/27/16 VSS on 07/27/16 Oxygen Devices in Use Now: Nasal Cannula Appearance: NAD; elderly and frail Ears/Nose/Mouth/Throat: Clear Oropharnyx Neck: Trachea Midline Respiratory: Symmetrical Chest Expansion and Respiratory Effort Cardiovascular: NL Sounds; No Murmurs; No JVD Abdominal: NL Sounds; No Tenderness; No Distention Lymphatic: No Cervical Adenopathy Extremities: No Edema Neurological: NL Sensation Lines/Tubes/Other Access: Clean, Dry and Intact Peripheral IV Nutrition: Taking PO's Result Diagrams: 07/27/16 06:12 07/26/16 05:40 Additional Lab and Data: . Assess/Plan/Problems-Billing . Assessment: Mr. Slaughter is an 86yo M with PMH of HTN, Afib on AC, HLD, COPD, CVAx2, BPH with urinary retention and chronic Hyman, ANTIONETTE, multiple recent admissions for sepsis secondary to UTI, influenza, and COPD exacerbation, who was sent to ED with severe dyspnea, initially admitted to ICU, but with quick improvement. Current Medications: - Albuterol (Ventolin 2.5 Mg/3 Ml Neb.Ada*) 2.5 mg INH Q4H PRN SOB/WHEEZING - Albuterol/Ipratropium (Duoneb Neb.Ada*) 1 neb INH RT.[id number] AWAKE SHIELA - Aspirin (Aspirin Low Dose Tab*) 81 mg PO DAILY [facility] - Atorvastatin Calcium (Lipitor*) 10 mg PO DAILY [facility] - Haloperidol (Haldol Tab*) 1 mg PO Q6H PRN AGITATION - Metoprolol Succinate (Toprol Xl Tab*) 50 mg PO DAILY [facility] - Prednisone (Deltasone Tab*) 20 mg PO DAILY [facility] - Terazosin HCl (Hytrin Cap*) 10 mg PO DAILY [facility] - Patient Problems (1) Acute respiratory failure with hypoxia Status: Acute Priority: High Code(s): J96.01 - ACUTE RESPIRATORY FAILURE WITH HYPOXIA Comment: - This is his 4th admission since - 3rd one with COPD related issues. - Critical care input appreciated - although patient was described as in respiratory distress, tripoding, he improved quickly, so ICU attending felt his bronchospasm was triggered by mucus plug or small volume aspiration. - No compelling evidence for COPD or CHF exacerbation, or infection. - Not on antibiotics and seems to be back to baseline. - Continue bronchodilators and steroids. - Passed RN bedside swallow evaluation, awaiting formal Speech pathology eval. (2) Afib Status: Acute Code(s): I48.91 - UNSPECIFIED ATRIAL FIBRILLATION Comment: - Rate is controlled - continue Metoprolol. (3) SULMA (acute kidney injury) Status: Acute Priority: High Code(s): N17.9 - ACUTE KIDNEY FAILURE, UNSPECIFIED Comment: - Suspect secondary to dehydration - received IVF during the day and will encourage PO intake. - Hyman catheter in place draining yellow urine. - Continue to monitor renal function. (4) BPH (benign prostatic hyperplasia) Status: Acute Priority: High Code(s): N40.0 - BENIGN PROSTATIC HYPERPLASIA WITHOUT LOWER URINRY TRACT SYMP Comment: - With urinary retention, now with chronic Hyman. - Continue Terazosin. (5) Confusion Status: Acute Code(s): R41.0 - DISORIENTATION, UNSPECIFIED Comment: - Unclear how far he's from his baseline as he seems to be confused during all his admissions and I'm not sure if he improved in between. - Suspect a component of delirium at this time. - Low dose Haldol as needed for agitation. (6) High risk for readmission Status: Acute Code(s): Z91.89 - [facility] PERSONAL RISK FACTORS, NOT ELSEWHERE CLASSIFIED Comment: - This is his 4th admission since May for infectious issues, mostly respiratory. - May need a higher level of care at this point. - Will try to contact family for possible Palliative care consult. (7) Supratherapeutic INR Status: Acute Priority: High Code(s): R79.1 - ABNORMAL COAGULATION PROFILE Comment: - INR is 7.6 with no signs of bleeding. - Continue to hold Warfarin and monitor INR. (8) HTN (hypertension) Status: Chronic Code(s): I10 - ESSENTIAL (PRIMARY) HYPERTENSION Comment: - Controlled. - Continue Metoprolol and Terazosin. (9) DVT prophylaxis Status: Acute Priority: High Code(s): MXQ6520 - Comment: - Warfarin on hold due to supratherapeutic INR. - Vitamin K today Status and Disposition: Inpatient.
== END 2016-07-28 14:10 | DRG 189 ==
LOC: ED 00:54 → ICU 03:55 → MED 16:24
PROVIDERS: ADMIT Hospitalist; ATTEND Internal Medicine
DX: J96.01 Acute respiratory failure with hypoxia (principal); N17.9 Acute kidney failure, unspecified; J44.1 Chronic obstructive pulmonary disease with (acute) exacerbation; I48.91 Unspecified atrial fibrillation; T17.990A Other foreign object in respiratory tract, part unspecified in causing asphyxiation, initial encounter; E86.0 Dehydration; J45.909 Unspecified asthma, uncomplicated; R79.1 Abnormal coagulation profile; N40.1 Benign prostatic hyperplasia with lower urinary tract symptoms; G47.33 Obstructive sleep apnea (adult) (pediatric); E78.5 Hyperlipidemia, unspecified; I10 Essential (primary) hypertension; R60.9 Edema, unspecified; R62.7 Adult failure to thrive; R41.0 Disorientation, unspecified; R33.8 Other retention of urine; Z66 Do not resuscitate; Z79.01 Long term (current) use of anticoagulants; Z87.891 Personal history of nicotine dependence; Z79.52 Long term (current) use of systemic steroids; Z79.82 Long term (current) use of aspirin; Z86.73 Personal history of transient ischemic attack (TIA), and cerebral infarction without residual deficits; X58.XXXA Exposure to other specified factors, initial encounter; Y92.9 Unspecified place or not applicable
CPT/HCPCS: 36415; 36600; 71010; 80048; 80053; 81003; 81015; 82803; 83605; 83880; 84484; 85014; 85018; 85025; 85049; 85060; 85610; 87040; 87086; 93005; 94640; 94760; A9270-GY; J1630; J2930; J7512

== ENCOUNTER 2016-08-29 19:58 | Inpatient (IN) | payer MEDICARE ==
--- NOTE | 2016-08-29 20:34 | ED ---
Xuan, DoctorRianna scribed for Charlie Tejeda MD on 08/29/16 at 2016 . Lower Extremity - HPI Summary HPI Summary: 86 year old male arrived to [facility] for evaluation of right ankle edema. He has a PMHx of edema. - History of Current Complaint Chief Complaint: EDExtremityLower Stated Complaint: R/O DVT RIGHT LEG Time Seen by Provider: 08/29/16 20:03 Hx Obtained From: Patient Pain Intensity: 0 Pain Scale Used: 0-10 Numeric - Allergies/Home Medications Allergies/Adverse Reactions: Allergies Allergy/AdvReac Type Severity Reaction Status Date / Time No Known Allergies Allergy Verified 07/24/16 00:59 PMH/Surg Hx/FS Hx/Imm Hx Endocrine/Hematology History: Denies: Hx Diabetes Cardiovascular History: Reports: Hx Hypertension, Other Cardiovascular Problems/ Disorders - AFIB Denies: Hx Pacemaker/ICD Respiratory History: Reports: Hx Asthma, Hx Chronic Obstructive Pulmonary Disease (COPD), Hx Pulmonary Edema History: Reports: Other Problems/Disorders - chronic catheter Denies: Hx Renal Disease Musculoskeletal History: Reports: Hx Arthritis Sensory History: Reports: Hx Contacts or Glasses, Hx Hearing Problem Denies: Hx Deafness, Hx Hearing Aid Opthamlomology History: Reports: Hx Contacts or Glasses Neurological History: Reports: Hx Dementia, Hx Transient Ischemic Attacks (TIA) Psychiatric History: Denies: Hx Panic Disorder - Immunization History Date of Tetanus Vaccine: unknown Infectious Disease History: No Infectious Disease History: Denies: Traveled Outside the [place] in Last 30 Days - Family History Known Family History: Positive: Cardiac Disease - father - [place] at 52 - Social History Alcohol Use: None Hx Substance Use: No Substance Use Type: Reports: None Hx Tobacco Use: Yes Smoking Status (MU): Former Smoker Type: Cigarettes Review of Systems Negative: Fever Positive: Edema - right ankle edema All Other Systems Reviewed And Are Negative: Yes Physical Exam Triage Information Reviewed: Yes Vital Signs On Initial Exam: Initial Vitals Temp Pulse Resp BP Pulse Ox 100.4 F 73 20 134/93 94 08/29/16 20:03 08/29/16 20:03 08/29/16 20:03 08/29/16 20:03 08/29/16 20:03 Vital Signs Reviewed: Yes Appearance: Positive: No Pain Distress, Ill-Appearing Skin: Positive: Warm Head/Face: Positive: Normal Head/Face Inspection Eyes: Positive: JOEY ENT: Positive: Hearing grossly normal Neck: Positive: Supple Respiratory/Lung Sounds: Positive: Rhonchi - coarse scattered, Wheezes - scattered exp Cardiovascular: Positive: RRR Abdomen Description: Positive: Nontender, Soft Musculoskeletal: Positive: Edema Right, Other - rt ankle mild warm, erythematous Neurological: Positive: Sensory/Motor Intact Diagnostics - Vital Signs Vital Signs Temp Pulse Resp BP Pulse Ox 08/29/16 20:03 100.4 F 73 20 134/93 94 - Laboratory Result Diagrams: 08/29/16 20:30 08/29/16 20:30 Lab Statement: Any lab studies that have been ordered have been reviewed, and results considered in the medical decision making process. - Radiology CXR Radiology Interpretation Completed By: Radiologist - IMPRESSION: STIGMATA OF CHRONIC OBSTRUCTIVE PULMONARY DISEASE WITHOUT RADIOGRAPHICALLY APPARENT ACUTE ABNORMALITY. Lower Extremity Course/Dx - Diagnoses Provider Diagnoses: Sepsis, COPD (chronic obstructive pulmonary disease) - Physician Notifications Discussed Care of Patient With: 21:10 - Discussed pt care with Dr. Clarke ( Hospitalist) Instructed by Provider To: Admit As Inpatient Discharge - Discharge Plan Condition: Fair Disposition: ADMITTED TO [facility] documentation as recorded by the Doctor green Tahera accurately reflects the service I personally performed and the decisions made by , Charlie Tejeda MD.
--- NOTE | 2016-08-29 20:34 | RAD ---
INDICATION: Cough COMPARISON: Chest x-ray dated July 24, 2016 TECHNIQUE: PA and lateral views of the chest were obtained. FINDINGS: The heart and mediastinum are normal in size and contour. Coarse atherosclerotic calcification is seen overlying the arch of the aorta. The lungs are hyperaerated and there is an increased retrosternal airspace and flattened diaphragm. Otherwise the lungs are grossly clear. There is no evidence of large pleural effusion. Visualized bones are normal for the patient's age. There is no radiographic evidence of free air beneath the diaphragm IMPRESSION: STIGMATA OF CHRONIC OBSTRUCTIVE PULMONARY DISEASE WITHOUT RADIOGRAPHICALLY APPARENT ACUTE ABNORMALITY.
[2016-08-29] MEDS ORDERED: Albuterol/Ipratropium NEB.SOL* Albuterol 2.5 MG/Ipratropium 0.5 MG 3 ML INH ONE (20:39)
[2016-08-29 20:43] LABS: Hematocrit 39 % (42-52); Hemoglobin 12.2 g/dl (14.0-18.0); Mean Corpuscular HGB Conc 32 g/dl (31-36); Mean Corpuscular Hemoglobin 26 pg (27-31); Mean Corpuscular Volume 81 fL (80-94); Mean Platelet Volume 10 um3 (7.4-10.4); Red Blood Count 4.73 10^6/ul (4.0-5.4); Red Cell Distribution Width 19 % (10.5-15); White Blood Count 10.9 10^3/ul (3.5-10.8)
[2016-08-29 20:56] LABS: Urine Bacteria 1+ (Absent); Urine Bilirubin Negative (Negative); Urine Glucose Negative (Negative); Urine Nitrite Negative (Negative)
[2016-08-29 20:58] LABS: Albumin 3.4 g/dL (3.2-5.2); Calcium 9.3 mg/dL (8.6-10.3); EGFR African American 73.8 (>60); EGFR Non-African American 57.4 (>60); Globulin 3.3 g/dL (2-4); Magnesium 1.9 mg/dL (1.9-2.7); Potassium 3.6 mmol/L (3.5-5.0); Total Bilirubin 0.7 mg/dL (0.2-1.0); Total Protein 6.7 g/dL (6.4-8.9)
[2016-08-29 21:02] LABS: Troponin I 0.04 ng/mL (<0.04)
[2016-08-29] MEDS ORDERED: Levofloxacin 500 MG IVPREMIX(* 500 MG/100 ML BAG IVPB ONE (21:03)
[2016-08-29] MEDS ORDERED: Albuterol 2.5 MG/3 ML NEB.SOL* (0.083%) INH PRN (21:47)
[2016-08-29] MEDS ORDERED: NS 0.9% 1000 ML* 1,000 ML IV SCH (22:00)
[2016-08-29] MEDS ORDERED: cefTRIAXone VIAL(*) 1,000 MG VIAL ONE (22:08)
[2016-08-29] MEDS: Metoprolol Tartrate IV* 1 MG/ML 5 ML VIAL IV PRN (22:13)
[2016-08-29] MEDS: cefTRIAXone VIAL(*) 1,000 MG in NS 0.9% 50 ML* 50 ML IVPB SCH (22:17)
[2016-08-29] MEDS: predniSONE TAB* 20 MG PO SCH (22:23)
--- NOTE | 2016-08-29 22:55 | RAD ---
HISTORY: Right leg edema TECHNIQUE: Multiple transverse and longitudinal ultrasound images were obtained of the veins of the right lower extremity using grayscale, color Doppler, and spectral Doppler imaging with and without compression and with augmentation. FINDINGS: VEINS: The common femoral vein, deep femoral vein, femoral vein and popliteal vein are compressible throughout their course, with normal flow on color Doppler imaging and normal response to augmentation on spectral Doppler imaging. SOFT TISSUES: There is a mild degree of subcutaneous edema of the right lower leg. IMPRESSION: No sonographic evidence of deep vein thrombosis.
--- NOTE | 2016-08-29 23:22 | RAD ---
INDICATION: Pain and redness at the right ankle COMPARISON: None. TECHNIQUE: 2 views of the right ankle were obtained. FINDINGS: The bones are normal alignment. Joint spaces appear maintained. No fracture is seen. Coarse atherosclerotic calcification is seen overlying the posterior tibial artery and to a lesser extent the anterior tibial artery and dorsalis pedis. IMPRESSION: 1. NORMAL ANKLE RADIOGRAPH. 2. COARSE CALCIFICATION OF THE VISUALIZED INFRAPOPLITEAL ARTERIES. PLEASE CORRELATE TO SIGNS AND SYMPTOMS OF ARTERIAL INSUFFICIENCY. If the patient's symptoms persist, follow-up imaging is recommended.
[2016-08-29] MEDS: Azithromycin IV(*) 500 MG in NS 0.9% 250 ML* 250 ML IVPB SCH (23:31)
[2016-08-29] MEDS: Albuterol/Ipratropium NEB.SOL* Albuterol 2.5 MG/Ipratropium 0.5 MG 3 ML INH SCH (23:50)
[2016-08-30] MEDS ORDERED: Metoprolol Tartrate IV* 1 MG/ML 5 ML VIAL IV ONE (00:28)
--- NOTE | 2016-08-30 00:59 | HP ---
HISTORY AND PHYSICAL: DATE OF ADMISSION: 08/29/16 PRIMARY CARE PROVIDER: Ailyn Hardy MD ATTENDING PHYSICIAN WHILE IN THE HOSPITAL: Fausto Clarke MD* (report being dictated by Silvio Guevara NP) CHIEF COMPLAINT: 1. Cough. 2. Right foot and ankle pain. HISTORY OF PRESENT ILLNESS: Mr. Slaughter is an 86-year-old male patient with an underlying history of dementia, COPD, hyperlipidemia, ANTIONETTE, AFib, BPH, hypertension, and CVA x2. He comes into the ER today. He is really not able to give much history as he does have underlying dementia, but the son states today that around this morning, the patient was evaluated by his son, he was complaining of having right foot pain and swelling. It was evaluated by the doctor later today at [facility] and there was a concern of possible cellulitis and he was sent to the hospital. The patient says that he thinks this may have been going on for a couple of days, but again he is a poor historian and really unreliable. His son states that the last couple of days, he has been having worsening cough again, bringing up some yellowish-green type sputum. He has been wheezing and despite his pulmonary regimen at [facility], the patient states he does not feel short of breath. He denies any nausea or vomiting. He complains that his foot is painful and there does appear to be some slight redness to his foot. There was concern for this for possible DVT versus a cellulitis, so he was sent to the hospital to be evaluated. He was evaluated. It was ultimately noted that he was in AFib with RVR. He had a slight white count. His UA was positive. On respiratory exam, he did appear to be wheezing and the hospitalist service was asked to evaluate for admission. PAST MEDICAL HISTORY: Significant for: 1. AFib. 2. Hypertension. 3. BPH. 4. CVA x2. 5. ANTIONETTE. 6. Hyperlipidemia. 7. COPD. 8. Dementia. PAST SURGICAL HISTORY: Denied by the patient's son. HOME MEDICATIONS: According to the list from [facility] include: 1. Prednisone 10 mg daily. 2. PulmoNeb 1 neb inhaled b.i.d. 3. Tylenol 650 mg p.o. every 4 hours as needed for pain. 4. Omeprazole 20 mg daily. 5. Guaifenesin 200 mg p.o. b.i.d. 6. Milk of mag 30 cc p.o. daily with meals. 7. Bisacodyl 10 mg p.o. daily as needed. 8. DuoNeb 1 neb inhaled every 4 hours as needed. 9. Aspirin 81 mg daily. 10. Lasix 20 mg daily. 11. Ipratropium bromide 0.06% both nares b.i.d. a.c. 12. Metoprolol XL 50 mg daily. 13. Hytrin 10 mg daily. 14. Zocor 20 mg daily. 15. Potassium 20 mEq daily. 16. Coumadin 3 mg on Sunday, Sunday, and Sunday. 17. Coumadin 4 mg on Sunday, Sunday, , and Sunday. 18. Spiriva 1 capsule inhaled daily. ALLERGIES TO MEDICATIONS: Include no known drug allergies. FAMILY HISTORY: His father had a history of [place] and CAD. SOCIAL HISTORY: He is a former smoker. He lives at [facility]. Does not drink alcohol. Surrogate decision maker is his son, Yvette. REVIEW OF SYSTEMS: Again limited, but there is no documented chills or fevers. No double vision. No ear discharge. He denied any rhinorrhea or sore throat. No chest pain. No orthopnea. No nocturnal dyspnea. There is no abdominal pain. No nausea. No vomiting. No dysuria. No frequency. No seizure. No loss of conscious. No pruritus. No skin ulcerations. Review of 14 systems completed, all others negative. PHYSICAL EXAMINATION GENERAL: At this time, Mr. George is an 86-year-old male patient. He is a chronically ill, elderly male patient. He appears well nourished, well developed. He does not appear to be in any acute distress. VITAL SIGNS: Blood pressure 134/94, pulse of 73, respirations 20, O2 sat 94%, and temperature 100.4. His heart rate now is right around 120. HEENT: Head is atraumatic, normocephalic. Eyes: EOMs intact. Sclerae anicteric and not pale. NECK: Supple. Throat: Oral mucosa appears to be dry, no oropharyngeal erythema. LUNGS: He had wheezing noted throughout. He had rhonchi in upper lobes. Equal diaphragmatic expansion. HEART: Sounds S1, S2. Irregular irregular rate. No murmurs, rubs, or gallops. ABDOMEN: Soft, flat, nontender. Bowel sounds present. EXTREMITIES: Pulses were 2+ throughout. He had +2 pitting edema to that right lower extremity and mild erythema from the foot going up to the ankle. No trauma reported. He is able to move all 4 extremities with 5/5 strength. NEUROLOGIC: He is awake to himself only, he is confused to time and place. Speech clear. Tongue midline. Manager Portable were equal. No gross focal deficits. SKIN: Intact with the exception he does have some erythema to the right ankle. DIAGNOSTIC STUDIES/LAB DATA: Labs today revealed WBC of 10.9, RBC of 4.73, hemoglobin 12.2, hematocrit 39, and platelet count of 153. The INR was 2.74. The sodium was 137, potassium 3.6, chloride of 97, bicarb 33, BUN 18, creatinine 1.20, glucose 216, lactic 1.4, calcium 9.3, and mag 1.9. Total bilirubin 0.7, AST 14, ALT 10, and alk phos 70. Troponin 0.04. Albumin 4.4. Urine showed 2+ protein, 1+ blood, 3+ leukocyte esterase, 3+ wbc, 3+ rbc, and 1 + bacteria. He did have a chest x-ray obtained today, which revealed stigmata of chronic COPD without radiographic apparent acute abnormality. There was an EKG obtained today which showed atrial fibrillation with a PVC rate of 126. He had no ST elevations noted at this point. No T-wave inversions. It is reviewed with the previous EKG, it is similar. He was in rapid AFib previously. He has had an echo 2 years ago in 2015, which showed an EF of 55% to 50%. Old medical records were reviewed. ASSESSMENT AND PLAN: Mr. Slaughter is an 86-year-old male patient coming in today with complaints of redness and pain to the right ankle. On evaluation, he was found to be in atrial fibrillation with rapid ventricular response. In addition to this, concern for chronic obstructive pulmonary disease exacerbation. He will be admitted under inpatient status for: 1. Right ankle pain and redness and erythema: Certainly this could be a mild cellulitis, but I also would like to get an ultrasound of the lower extremities to rule out DVT, although this is probably unlikely. His INR is therapeutic and I am also going to get x-rays to make sure there is no occult fracture here. I am going to be putting him on Rocephin more so for his pulmonary problems and issues currently, but this should cover any underlying cellulitis and I will get a procalcitonin and we will continue to follow. 2. Chronic obstructive pulmonary disease exacerbation: He is wheezing on exam. He is rhonchorous. I am going to order a Flutter valve, nebs around-the- clock, Pulmicort b.i.d., p.r.n. albuterol, and steroids, and put him on azithromycin and along with Rocephin. We will get a flu swab. We will get blood cultures because he did have a fever. In addition to this, we will get legionella and Strep pneumo antigens, and we will try go get a sputum culture if possible and I have ordered a Flutter valve for pulmonary toileting. 3. Atrial fibrillation with rapid ventricular response: I did order a p.r.n. dosing of metoprolol. I will give him another liter of fluids slowly throughout the evening. He got 1 L here in the ER. We will see if we can get his heart rate to come down with that. He is now in the one-teens, he was in the 120s, so we will continue with the p.r.n. Lopressor. 4. Indeterminate troponin: Probably demand ischemia related to chronic obstructive pulmonary disease exacerbation and the fact that he does have a mild atrial fibrillation with rapid ventricular response, which is probably causing some demand ischemia. We will go ahead and continue his warfarin, it is therapeutic and continue his Toprol-XL and may be consider increasing this. 5. Urinary tract infection: He will be on Rocephin. 6. Hypertension: Continue meds as prescribed. 7. Benign prostatic hypertrophy: Continue his Hytrin. 8. History of cerebrovascular accident: Continue with secondary prevention. 9. Obstructive sleep apnea: CPAP has been ordered with auto. 10. Hyperlipidemia: Continue statin therapy. 11. Dementia: Continue with supportive care. 12. DVT prophylaxis: INR is therapeutic. We will continue to monitor. He does not need any heparin at this point for DVT prophylaxis. 13. Fluid, electrolytes, and nutrition: He can have a heart healthy diet. 14. Code status: He is a DNR. TIME SPENT: Time spent on the admission was 60 minutes; greater than half the time was spent [id number] with the patient obtaining my history and physical, the other half time was spent going over the plan of care with the patient and implementing plan of care. I discussed the plan of care with my attending, Dr. Clarke. He is in agreement. SILVIO GUEVARA NP CC: Dr. Hardy* [id number]/[facility] #: [id number] MANN
[2016-08-30] MEDS ORDERED: Haloperidol INJ IV/IM* 5 MG/ML AMP IV SLOW PU ONE (02:12)
[2016-08-30] MEDS ORDERED: Haloperidol INJ IV/IM* 5 MG/ML AMP IM PRN (02:51)
[2016-08-30] MEDS ORDERED: Ziprasidone IM INJ* 20 MG/ML VIAL IM ONE (02:54)
[2016-08-30] MEDS: Albuterol/Ipratropium NEB.SOL* Albuterol 2.5 MG/Ipratropium 0.5 MG 3 ML INH SCH ×6 (04:07→23:57)
[2016-08-30] MEDS: Metoprolol Tartrate IV* 1 MG/ML 5 ML VIAL IV PRN (05:04)
[2016-08-30 05:09] LABS: Hematocrit 39 % (42-52); Hemoglobin 12.3 g/dl (14.0-18.0); Mean Corpuscular HGB Conc 32 g/dl (31-36); Mean Corpuscular Hemoglobin 26 pg (27-31); Mean Corpuscular Volume 82 fL (80-94); Mean Platelet Volume 10 um3 (7.4-10.4); Red Blood Count 4.75 10^6/ul (4.0-5.4); Red Cell Distribution Width 18 % (10.5-15); White Blood Count 11.8 10^3/ul (3.5-10.8)
[2016-08-30 05:29] LABS: BUN/Creatinine Ratio 17.6 (8-20); Calcium 9.4 mg/dL (8.6-10.3); EGFR African American 74.5 (>60)
[2016-08-30] MEDS: predniSONE TAB* 20 MG PO SCH (07:52)
[2016-08-30] MEDS: Atorvastatin* 10 MG TAB PO SCH (07:53)
[2016-08-30] MEDS: Aspirin Low Dose CHEW TAB* 81 MG PO SCH (07:53)
[2016-08-30] MEDS: Omeprazole CAP* 20 MG PO SCH (07:53)
[2016-08-30] MEDS: Terazosin CAP* 5 MG PO SCH (07:57)
[2016-08-30] MEDS: Budesonide NEB* 0.25 MG/2 ML NEB.SOLN INH SCH ×3 (08:42→23:28)
[2016-08-30] MEDS ORDERED: Metoprolol Succinate XL TAB* 50 MG PO SCH (09:00)
--- NOTE | 2016-08-30 13:36 | PN ---
Subjective Date of Service: 08/30/16 Interval History: Sleeping, when attempt to wake he strikes at this author. Able to communicate but unwilling to speak with this author Objective Active Medications: Albuterol (Ventolin 2.5 Mg/3 Ml Neb.Ada*) 2.5 mg INH Q2H PRN PRN Reason: SOB/WHEEZING Last Admin: 08/30/16 05:15 Dose: 2.5 mg Albuterol/Ipratropium (Duoneb (Albuterol 2.5 Mg/Ipratropium 0.5 Mg)) 1 neb INH [id number] AWAKE [facility] Last Admin: 08/30/16 11:14 Dose: Not Given Aspirin (Aspirin Low Dose Tab*) 81 mg PO DAILY [facility] Last Admin: 08/30/16 07:53 Dose: 81 mg Atorvastatin Calcium (Lipitor*) 10 mg PO DAILY [facility] Last Admin: 08/30/16 07:53 Dose: 10 mg Budesonide (Pulmicort Neb*) 0.25 mg INH BID [facility] Last Admin: 08/30/16 11:43 Dose: Not Given Haloperidol Lactate (Haldol Inj Iv/Im*) 2.5 mg IM Q6H PRN PRN Reason: AGITATION Ceftriaxone Sodium 1,000 mg/ (Sodium Chloride) 50 mls @ 200 mls/hr IVPB Q24H [facility] Last Admin: 08/29/16 22:17 Dose: 200 mls/hr Azithromycin 500 mg/ Sodium (Chloride) 250 mls @ 250 mls/hr IVPB Q24H [facility] Last Admin: 08/29/16 23:31 Dose: 250 mls/hr Sodium Chloride (Ns 0.9% 1000 Ml*) 1,000 mls @ 100 mls/hr IV PER RATE [facility] Last Admin: 08/29/16 22:16 Dose: 100 mls/hr Metoprolol Succinate (Toprol Xl Tab*) 50 mg PO DAILY [facility] Last Admin: 08/30/16 07:53 Dose: 50 mg Metoprolol Tartrate (Lopressor Iv*) 5 mg IV Q6H PRN PRN Reason: HEART RATE/PULSE Last Admin: 08/30/16 05:04 Dose: 5 mg Omeprazole (Prilosec Cap*) 20 mg PO DAILY [facility] Last Admin: 08/30/16 07:53 Dose: 20 mg Pharmacy Profile Note (Coumadin Daily Reminder*) 1 note FOLLOW UP 1700 [facility] Prednisone (Deltasone Tab*) 60 mg PO DAILY [facility] Last Admin: 08/30/16 07:52 Dose: 60 mg Terazosin HCl (Hytrin Cap*) 10 mg PO DAILY [facility] Last Admin: 08/30/16 07:57 Dose: 10 mg Warfarin Sodium (Coumadin Tab(*)) 3 mg PO MoWeFr@1700 [facility] Warfarin Sodium (Coumadin Tab(*)) 4 mg PO SuTuThSa@1700 [facility] PRN Reason: Protocol Vital Signs 08/29/16 08/29/16 08/29/16 22:00 22:31 22:38 Temperature Pulse Rate 84 78 Respiratory 27 23 Rate Blood Pressure 109/60 (mmHg) O2 Sat by Pulse 94 93 Oximetry 08/29/16 08/29/16 08/29/16 22:42 23:12 23:51 Temperature Pulse Rate 63 101 Respiratory 25 Rate Blood Pressure 124/72 127/101 (mmHg) O2 Sat by Pulse 92 99 Oximetry 08/30/16 08/30/16 08/30/16 00:00 05:20 06:32 Temperature 99.0 F Pulse Rate 72 86 Respiratory 20 18 Rate Blood Pressure 115/95 (mmHg) O2 Sat by Pulse 96 93 Oximetry 08/30/16 08/30/16 08/30/16 08:00 08:41 11:30 Temperature 98.3 F 97.5 F Pulse Rate 102 101 80 Respiratory 26 20 20 Rate Blood Pressure 152/72 123/62 (mmHg) O2 Sat by Pulse 91 93 99 Oximetry Oxygen Devices in Use Now: None Appearance: NAD Eyes: No Scleral Icterus, PERRLA Ears/Nose/Mouth/Throat: Mucous Membranes Moist Neck: NL Appearance and Movements; NL JVP, Trachea Midline Respiratory: Symmetrical Chest Expansion and Respiratory Effort, - - decreased in bases Abdominal: NL Sounds; No Tenderness; No Distention, No Hepatosplenomegaly Lymphatic: No Cervical Adenopathy Extremities: - - 1+ edema in right ankle Neurological: - - Aox1 to self Result Diagrams: 08/30/16 05:00 08/30/16 05:00 Microbiology and Other Data: Microbiology 08/30/16 01:00 Gram Stain - Final Sputum 08/29/16 22:30 Nasal Screen MRSA (PCR)(RICHARD) - Final Nasal Mrsa Negative 04/18/17 22:30 Influenza Types A,B Antigen (RICHARD) - Final Nasal Specimen received for Influenza A/B Molecular testing Assess/Plan/Problems-Billing Assessment: 86 yo M h/o dementia, afib, HTN, CVAs, ANTIONETTE, COPD presented to the hospital with concern for RLE cellulitis found with afib RVR and e. coli UTI - Patient Problems (1) UTI (urinary tract infection) Comment: e. coli CTX (2) Atrial fibrillation with RVR Comment: c/w metoprolol breakthrough IV toprol as needed coumadin (3) COPD exacerbation Comment: prednisone 60mg PO CTX Cont nebs and budesonide (4) HTN (hypertension) Comment: Controlled. Continue Metoprolol (5) DVT prophylaxis Comment: coumadin
[2016-08-30] MEDS ORDERED: Warfarin TAB(*) 3 MG PO SCH (17:00)
[2016-08-30] MEDS: cefTRIAXone VIAL(*) 1,000 MG in NS 0.9% 50 ML* 50 ML IVPB SCH (21:14)
[2016-08-30] MEDS: Azithromycin IV(*) 500 MG in NS 0.9% 250 ML* 250 ML IVPB SCH (22:15)
[2016-08-31] MEDS: Metoprolol Tartrate IV* 1 MG/ML 5 ML VIAL IV PRN ×2 (00:29→12:47)
[2016-08-31] MEDS ORDERED: Ziprasidone IM INJ* 20 MG/ML VIAL IM ONE (03:00)
[2016-08-31] MEDS: Albuterol/Ipratropium NEB.SOL* Albuterol 2.5 MG/Ipratropium 0.5 MG 3 ML INH SCH ×6 (04:26→23:43)
[2016-08-31] MEDS: Terazosin CAP* 5 MG PO SCH ×2 (08:56→09:07)
[2016-08-31] MEDS: Metoprolol Succinate XL TAB* 25 MG PO SCH ×3 (08:57→11:31)
[2016-08-31] MEDS: Omeprazole CAP* 20 MG PO SCH ×2 (08:57→09:08)
[2016-08-31] MEDS: predniSONE TAB* 20 MG PO SCH ×2 (08:57→09:08)
[2016-08-31] MEDS: Aspirin Low Dose CHEW TAB* 81 MG PO SCH ×2 (08:57→09:04)
[2016-08-31] MEDS: Atorvastatin* 10 MG TAB PO SCH ×2 (08:57→09:05)
[2016-08-31] MEDS: Metoprolol Succinate XL TAB* 50 MG PO SCH ×3 (08:57→11:31)
[2016-08-31] MEDS: Budesonide NEB* 0.25 MG/2 ML NEB.SOLN INH SCH ×2 (11:35→21:07)
[2016-08-31] MEDS: Metoprolol Tartrate TAB* 25 MG PO SCH ×2 (14:28→20:52)
--- NOTE | 2016-08-31 15:34 | PN ---
Subjective Date of Service: 08/31/16 Interval History: Seen and examined this AM and again this afternoon with son present Patient refusing medications this AM but convinced later Dementia limits his ability to communicate needs appropriately Objective Active Medications: Albuterol (Ventolin 2.5 Mg/3 Ml Neb.Daa*) 2.5 mg INH Q2H PRN PRN Reason: SOB/WHEEZING Last Admin: 08/30/16 05:15 Dose: 2.5 mg Albuterol/Ipratropium (Duoneb (Albuterol 2.5 Mg/Ipratropium 0.5 Mg)) 1 neb INH [id number] AWAKE [facility] Last Admin: 08/31/16 11:35 Dose: 1 neb Aspirin (Aspirin Low Dose Tab*) 81 mg PO DAILY [facility] Last Admin: 08/31/16 09:04 Dose: Not Given Atorvastatin Calcium (Lipitor*) 10 mg PO DAILY [facility] Last Admin: 08/31/16 09:05 Dose: Not Given Budesonide (Pulmicort Neb*) 0.25 mg INH BID [facility] Last Admin: 08/31/16 11:35 Dose: 0.25 mg Haloperidol Lactate (Haldol Inj Iv/Im*) 2.5 mg IM Q6H PRN PRN Reason: AGITATION Ceftriaxone Sodium 1,000 mg/ (Sodium Chloride) 50 mls @ 200 mls/hr IVPB Q24H [facility] Last Admin: 08/30/16 21:14 Dose: 200 mls/hr Metoprolol Succinate (Toprol Xl Tab*) 50 mg PO DAILY [facility] Last Admin: 08/31/16 11:31 Dose: 50 mg Metoprolol Succinate (Toprol Xl Tab*) 25 mg PO DAILY [facility] Last Admin: 08/31/16 11:31 Dose: 25 mg Metoprolol Tartrate (Lopressor Iv*) 5 mg IV Q6H PRN PRN Reason: HEART RATE/PULSE Last Admin: 08/31/16 12:47 Dose: 5 mg Metoprolol Tartrate (Lopressor Tab*) 12.5 mg PO Q6H [facility] Last Admin: 08/31/16 14:28 Dose: 12.5 mg Omeprazole (Prilosec Cap*) 20 mg PO DAILY [facility] Last Admin: 08/31/16 09:08 Dose: Not Given Pharmacy Profile Note (Coumadin Daily Reminder*) 1 note FOLLOW UP 1700 [facility] Last Admin: 08/30/16 16:48 Dose: 1 note Prednisone (Deltasone Tab*) 60 mg PO DAILY [facility] Last Admin: 08/31/16 09:08 Dose: Not Given Terazosin HCl (Hytrin Cap*) 10 mg PO DAILY [facility] Last Admin: 08/31/16 09:07 Dose: Not Given Warfarin Sodium (Coumadin Tab(*)) 3 mg PO MoWeFr@1700 [facility] Last Admin: 08/30/16 16:46 Dose: 3 mg Warfarin Sodium (Coumadin Tab(*)) 4 mg PO SuTuThSa@1700 [facility] PRN Reason: Protocol Vital Signs 08/30/16 08/30/16 08/30/16 19:00 20:00 20:29 Temperature 96.8 F Pulse Rate 100 99 Respiratory 26 24 Rate Blood Pressure 147/75 (mmHg) O2 Sat by Pulse 97 98 Oximetry 08/30/16 08/30/16 08/31/16 20:32 23:52 00:00 Temperature 97.2 F Pulse Rate 59 81 66 Respiratory 16 Rate Blood Pressure 135/80 (mmHg) O2 Sat by Pulse 96 97 98 Oximetry 08/31/16 08/31/16 08/31/16 04:16 07:30 07:48 Temperature 96.9 F 97.6 F Pulse Rate 130 88 103 Respiratory 16 16 20 Rate Blood Pressure 136/64 118/79 (mmHg) O2 Sat by Pulse 93 95 Oximetry 08/31/16 08/31/16 08/31/16 08:00 11:37 11:50 Temperature 98.5 F Pulse Rate 90 182 Respiratory 20 220 20 Rate Blood Pressure 133/90 (mmHg) O2 Sat by Pulse 95 97 Oximetry Oxygen Devices in Use Now: None Appearance: NAD Eyes: No Scleral Icterus, PERRLA Ears/Nose/Mouth/Throat: Clear Oropharnyx, Mucous Membranes Moist Neck: NL Appearance and Movements; NL JVP, Trachea Midline Respiratory: Symmetrical Chest Expansion and Respiratory Effort, - - trace rales in bases Cardiovascular: - - IRIR, tachy Abdominal: NL Sounds; No Tenderness; No Distention, No Hepatosplenomegaly Lymphatic: No Cervical Adenopathy Extremities: - - left ankle mild edema, NTTP, FROM Skin: - - no rashes Neurological: - - AOx1 to self Result Diagrams: 08/30/16 05:00 08/30/16 05:00 Microbiology and Other Data: Microbiology 08/30/16 01:00 Gram Stain - Final Sputum 08/29/16 22:30 Nasal Screen MRSA (PCR)([facility]ICHARD) - Final Nasal Mrsa Negative 08/29/16 22:30 Influenza Types A,B Antigen (RICHARD) - Final Nasal Specimen received for Influenza A/B Molecular testing Assess/Plan/Problems-Billing Assessment: 86 yo M h/o dementia, afib, HTN, CVAs, ANTIONETTE, COPD presented to the hospital with concern for RLE cellulitis found with afib RVR and e. coli UTI - Patient Problems (1) UTI (urinary tract infection) Comment: e. coli CTX, will d/c on oral to complete 7 days maintain IV given refusual of medications here (2) Atrial fibrillation with RVR Comment: increased metoprolol XL to 75mg, remained tachy through day. Add metorpolol 12.5 q6h in addition breakthrough IV toprol as needed coumadin (3) COPD exacerbation Comment: prednisone 60mg PO CTX Cont nebs and budesonide (4) HTN (hypertension) Comment: Controlled. Continue Metoprolol (5) DVT prophylaxis Comment: coumadin
[2016-08-31] MEDS ORDERED: Warfarin TAB(*) 4 MG PO SCH (17:00)
[2016-08-31] MEDS: cefTRIAXone VIAL(*) 1,000 MG in NS 0.9% 50 ML* 50 ML IVPB SCH (21:58)
[2016-09-01] MEDS: Metoprolol Tartrate TAB* 25 MG PO SCH ×2 (02:35→07:56)
[2016-09-01] MEDS: Albuterol/Ipratropium NEB.SOL* Albuterol 2.5 MG/Ipratropium 0.5 MG 3 ML INH SCH ×3 (05:39→11:18)
[2016-09-01 07:17] LABS: Comments Flag Yes; Hematocrit 39 % (42-52); Hemoglobin 11.9 g/dl (14.0-18.0); Mean Corpuscular HGB Conc 31 g/dl (31-36); Mean Corpuscular Hemoglobin 25 pg (27-31); Mean Corpuscular Volume 83 fL (80-94); Mean Platelet Volume 10 um3 (7.4-10.4); Red Blood Count 4.69 10^6/ul (4.0-5.4); Red Cell Distribution Width 18 % (10.5-15); White Blood Count 13.3 10^3/ul (3.5-10.8)
[2016-09-01 07:25] LABS: BUN/Creatinine Ratio 23.1 (8-20); Calcium 9.1 mg/dL (8.6-10.3); EGFR African American 83.4 (>60); EGFR Non-African American 64.8 (>60); Potassium 3.7 mmol/L (3.5-5.0)
[2016-09-01] MEDS: Budesonide NEB* 0.25 MG/2 ML NEB.SOLN INH SCH (07:54)
[2016-09-01] MEDS: predniSONE TAB* 20 MG PO SCH (07:55)
[2016-09-01] MEDS: Omeprazole CAP* 20 MG PO SCH (07:56)
[2016-09-01] MEDS: Metoprolol Succinate XL TAB* 25 MG PO SCH (07:56)
[2016-09-01] MEDS: Metoprolol Succinate XL TAB* 50 MG PO SCH (07:56)
[2016-09-01] MEDS: Terazosin CAP* 5 MG PO SCH (07:56)
[2016-09-01] MEDS: Atorvastatin* 10 MG TAB PO SCH (07:56)
[2016-09-01] MEDS: Aspirin Low Dose CHEW TAB* 81 MG PO SCH (07:56)
[2016-09-01 11:59] VITALS: BP 137/89
[2016-09-01] MEDS ORDERED: Metoprolol Succinate XL TAB* 50 MG PO ONE (12:15)
[2016-09-01] MEDS ORDERED: Metoprolol Tartrate IV* 1 MG/ML 5 ML VIAL IV ONE (12:46)
[2016-09-01] MEDS ORDERED: Metoprolol Tartrate IV* 1 MG/ML 5 ML VIAL ONE (12:49)
--- NOTE | 2016-09-01 14:36 | DS ---
DISCHARGE SUMMARY: DATE OF ADMISSION: 08/29/16 DATE OF DISCHARGE: 09/01/16 PRIMARY CARE PROVIDER: Dr. Contreras. PRIMARY DIAGNOSES: 1. Urinary tract infection with Escherichia coli. 2. Atrial fibrillation with rapid ventricular response. SECONDARY DIAGNOSES: Include: 1. Right lower ankle swelling. 2. Dementia with aggressive behavior. 3. Hypertension. 4. History of cerebrovascular accident. 5. Obstructive sleep apnea. 6. Hyperlipidemia. 7. History of chronic obstructive pulmonary disease with exacerbation. 8. Acute kidney injury. 9. Type 2 diabetes. 10. Urinary retention. 11. Chronic kidney disease. DISPOSITION ON DISCHARGE: [facility]. MEDICATIONS ON DISCHARGE: 1. Prednisone 10 mg daily. 2. Pulmicort 1 nebulizer twice daily. 3. Tylenol 650 mg every 4 hours as needed for pain or fever. 4. Omeprazole 20 mg daily. 5. Guaifenesin 200 mg twice daily as needed. 6. Milk of magnesia 30 mL daily with meal as needed for constipation. 7. Bisacodyl 10 mg per rectum daily as needed for constipation. 8. DuoNeb 1 neb every 4 hours as needed for shortness of breath or wheeze. 9. Aspirin 81 mg daily. 10. Lasix 20 mg daily. 11. Ipratropium nasal 0.06% both nares twice daily. 12. Terazosin 10 mg daily. 13. Simvastatin 20 mg daily. 14. Potassium chloride 20 mEq daily. 15. Coumadin 3 mg Sunday, Sunday, Sunday. 16. Coumadin 4 mg Sunday, Sunday, and Sunday. 17. Tiotropium inhaled daily. 18. Metoprolol succinate 150 mg daily, please note increased from 50 mg daily. 19. Keflex 500 mg 3 times daily for 7 additional days. Please note, atorvastatin is listed on the discharge summary but should not replace simvastatin. PERTINENT MICROBIOLOGY DURING THE COURSE OF HOSPITAL STAY: Urine positive for E. coli, resistant to ciprofloxacin, levofloxacin, ampicillin, Augmentin. PERTINENT LABORATORY DATA: White blood cell count on presentation 10.9, on discharge is 13.3. However, received steroids during the course of hospital stay. INR on the day of discharge 2.79. Creatinine on presentation 1.2, on discharge 1.08. Troponin I elevated at 0.04 on 3 consecutive checks. Hemoglobin A1c is 8.8%. Ankle x-ray. Impression: Normal ankle radiograph. Coarse calcification visualized, infrapopliteal arteries. Venous Doppler study, lower extremities. Impression: No sonographic evidence of DVT. HISTORY OF PRESENT ILLNESS AND HOSPITAL COURSE: This is an 86-year-old man with past medical history as outlined in the history of present illness on the day of admission, including dementia, COPD, ANTIONETTE, atrial fibrillation, history of CVA, presented from [facility] with swelling in his right ankle, concerning for cellulitis, found with concern of infection, elevated white blood cell count as well as coarse rhonchorous lungs and atrial fibrillation with rapid ventricular response. He is treated with azithromycin and ceftriaxone for potential COPD exacerbation in addition to IV steroids titrated down to oral steroids prior to discharge with improvement in his respiratory status. He is treated with increasing doses of metoprolol oral in addition to breakthrough IV metoprolol for his rapid ventricular heart rate. His resting heart rate was less than 100 on the day of discharge. His total daily dose was increased from 50 to 150 mg of metoprolol XL on the day of discharge. His urinary tract infection was treated with ceftriaxone for 3 days transition to complete additional 7 days of Keflex upon discharge. During the course of the hospital stay, the patient was combative, physically trying to hit and successively hitting staff including this author. He pulled out his Hyman on at least one occasion, had to replace for his urinary retention. He received fluids for his acute kidney injury with near resolution of kidney function back to his baseline CKD. There are no other complications during the course of his hospital stay. It was not suspected that his right ankle was cellulitic. He was first seen by this author in the morning, after the evening of his admission. He had no notable erythema or pain in his ankle. I have to mention the above antibiotics would have treated his cellulitis as well. At followup please; 1. Evaluate for continued rate control, titrate metoprolol XL as needed. 2. Evaluate lung function, may potentially increase steroids as needed. 3. No other specific labs or vitals that need followup. TIME SPENT: Greater than 60 minutes was spent on discharge of this patient, greater than half was spent [id number] with the patient. CC: Dr. Contreras* [id number]/[facility] #: [id number] [facility] HOSPITALJayehs
== END 2016-09-01 14:47 | DRG 690 ==
LOC: ED 19:58 → MEDTELE 21:45
PROVIDERS: ADMIT Internal Medicine; ATTEND Internal Medicine
PROC: 5A09357 Assistance with Respiratory Ventilation, Less than 24 Consecutive Hours, Continuous Positive Airway Pressure (ICD-10-PCS; principal; 2016-08-30)
DX: N39.0 Urinary tract infection, site not specified (principal); N17.9 Acute kidney failure, unspecified; F03.91 Unspecified dementia, unspecified severity, with behavioral disturbance; J44.1 Chronic obstructive pulmonary disease with (acute) exacerbation; B96.20 Unspecified Escherichia coli [E. coli] as the cause of diseases classified elsewhere; I48.91 Unspecified atrial fibrillation; E78.5 Hyperlipidemia, unspecified; J44.9 Chronic obstructive pulmonary disease, unspecified; I12.9 Hypertensive chronic kidney disease with stage 1 through stage 4 chronic kidney disease, or unspecified chronic kidney disease; N40.0 Benign prostatic hyperplasia without lower urinary tract symptoms; N18.9 Chronic kidney disease, unspecified; M25.471 Effusion, right ankle; Z86.73 Personal history of transient ischemic attack (TIA), and cerebral infarction without residual deficits; Z79.1 Long term (current) use of non-steroidal anti-inflammatories (NSAID); Z79.82 Long term (current) use of aspirin; Z79.01 Long term (current) use of anticoagulants; Z79.899 Other long term (current) drug therapy; Z79.52 Long term (current) use of systemic steroids; Z82.49 Family history of ischemic heart disease and other diseases of the circulatory system; R74.8 Abnormal levels of other serum enzymes
CPT/HCPCS: 36415; 71020; 80048; 80053; 81003; 81015; 83036; 83605; 83735; 84145; 84484; 85025; 85610; 87040; 87070; 87077; 87086; 87186; 87205; 87502; 87641; 87899; 93005; 94640; 94760; A9270-GY; J0456; J0696; J1956; J7512

== ENCOUNTER 2016-09-20 19:32 | Inpatient (IN) | payer MEDICARE ==
[2016-09-20] MEDS ORDERED: NS 0.9% 1000 ML* 1,000 ML IV ONE (19:42)
[2016-09-20 20:06] LABS: Hematocrit 37 % (42-52); Hemoglobin 11.8 g/dl (14.0-18.0); Mean Corpuscular HGB Conc 32 g/dl (31-36); Mean Corpuscular Hemoglobin 26 pg (27-31); Mean Corpuscular Volume 83 fL (80-94); Mean Platelet Volume 10 um3 (7.4-10.4); Red Cell Distribution Width 19 % (10.5-15); White Blood Count 11.8 10^3/ul (3.5-10.8)
[2016-09-20] MEDS ORDERED: Acetaminophen TAB* 325 MG PO ONE (20:16)
[2016-09-20 20:21] LABS: Albumin 3.4 g/dL (3.2-5.2); BUN/Creatinine Ratio 21.7 (8-20); Calcium 9.1 mg/dL (8.6-10.3); EGFR African American 77.5 (>60); EGFR Non-African American 60.3 (>60); Globulin 3.2 g/dL (2-4); Potassium 4.6 mmol/L (3.5-5.0); Total Bilirubin 0.6 mg/dL (0.2-1.0); Total Protein 6.6 g/dL (6.4-8.9)
[2016-09-20 20:28] LABS: Troponin I 0.05 ng/mL (<0.04)
--- NOTE | 2016-09-20 21:09 | RAD ---
Indication: Altered mental status. Fever. Chronic obstructive pulmonary disease. Atrial fibrillation. Comparison: August 29, 2016 Technique: Sitting AP and lateral chest views. Report: Elevated lung volumes and both mild prominence and patchy rarefaction of the interstitial markings. No alveolar consolidation, focal pulmonary lesion, pleural effusion, pneumothorax. Mild cardiomegaly. Unremarkable central pulmonary vasculature and mediastinal contours. IMPRESSION: Stigmata of advanced chronic obstructive pulmonary disease. No acute cardiopulmonary process evident.
[2016-09-20] MEDS ORDERED: NS 0.9% 1000 ML* 1,000 ML IV SCH (21:45)
--- NOTE | 2016-09-20 22:08 | ED ---
Teena Govea Michael scribed for Charlie Tejeda MD on 09/20/16 at 1945 . Complex/Multi-Sys Presentation - HPI Summary HPI Summary: 86 y/o male was BIBA to the ED presenting with CP that started immediately 30 minutes ago. The pt was unable to give a descriptive HPI due to dementia. He also presents with a fever of 101.4. Prior to arrival, the pt's pulse oxygen was 95% on 4L of oxygen. The PMHx is significant for COPD, Afib, and dementia. - History Of Current Complaint Hx Obtained From: EMS, Medical Records Hx From Patient Unobtainable Due To: Dementia Onset/Duration: Sudden Onset, Still Present Timing: Constant, Minutes Severity Currently: Moderate Severity Initially: Moderate Associated Signs And Symptoms: Positive: Chest Pain, Fever, Other - AMS-dementia - Allergies/Home Medications Allergies/Adverse Reactions: Allergies Allergy/AdvReac Type Severity Reaction Status Date / Time No Known Allergies Allergy Verified 09/20/16 20:55 PMH/Surg Hx/FS Hx/Imm Hx Endocrine/Hematology History: Denies: Hx Diabetes Cardiovascular History: Reports: Hx Hypertension, Other Cardiovascular Problems/ Disorders - AFIB Denies: Hx Pacemaker/ICD Respiratory History: Reports: Hx Asthma, Hx Chronic Obstructive Pulmonary Disease (COPD), Hx Pulmonary Edema History: Reports: Other Problems/Disorders - chronic catheter Denies: Hx Renal Disease Musculoskeletal History: Reports: Hx Arthritis Sensory History: Reports: Hx Contacts or Glasses, Hx Hearing Problem Denies: Hx Deafness, Hx Hearing Aid Opthamlomology History: Reports: Hx Contacts or Glasses Neurological History: Reports: Hx Dementia, Hx Transient Ischemic Attacks (TIA) Psychiatric History: Denies: Hx Panic Disorder - Immunization History Date of Tetanus Vaccine: unknown - Family History Known Family History: Positive: Cardiac Disease - father - [place] at 52 - Social History Occupation: Retired Lives: [facility] Alcohol Use: Unable to determine Hx Substance Use: No Substance Use Type: Reports: None Hx Tobacco Use: Yes Smoking Status (MU): Former Smoker Type: Cigarettes Review of Systems Positive: Fever Positive: Chest Pain Neurological: Other - AMS-dementia All Other Systems Reviewed And Are Negative: Yes Physical Exam Triage Information Reviewed: Yes Vital Signs On Initial Exam: Initial Vitals Temp Pulse Resp BP Pulse Ox 101.5 F 121 21 123/106 95 09/20/16 19:45 09/20/16 19:45 09/20/16 19:45 09/20/16 19:45 09/20/16 19:45 Vital Signs Reviewed: Yes Completion Of Physical Exam Limited Due To: Dementia Appearance: Positive: No Pain Distress, Ill-Appearing Skin: Positive: Warm Eyes: Positive: JOEY ENT: Positive: Hearing grossly normal Neck: Positive: Supple Respiratory/Lung Sounds: Positive: Breath Sounds Present Cardiovascular: Positive: RRR Abdomen Description: Positive: Nontender, Soft Male Genital Exam: Positive: other - non draining ramirez catheter Neurological: Positive: Sensory/Motor Intact Diagnostics - Vital Signs Vital Signs Temp Pulse Resp BP Pulse Ox 09/20/16 20:21 101.5 F 121 21 123/106 95 09/20/16 20:14 137 28 114/74 93 09/20/16 19:45 101.5 F 121 21 123/106 95 - Laboratory Lab Results: Lab Results 09/20/16 09/20/16 09/20/16 Range/Units 19:50 19:50 19:50 WBC 11.8 H (3.5-10.8) 10^3/ul RBC 4.50 (4.0-5.4) 10^6/ul Hgb 11.8 L (14.0-18.0) g/dl Hct 37 L (42-52) % MCV 83 (80-94) fL MCH 26 L (27-31) pg MCHC 32 (31-36) g/dl RDW 19 H (10.5-15) % Plt Count 153 (150-450) 10^3/ul MPV 10 (7.4-10.4) um3 Neut % (Auto) 93.0 H (38-83) % Lymph % (Auto) 2.6 L (25-47) % [place] % (Auto) 1.9 (1-9) % Eos % (Auto) 2.2 (0-6) % Baso % (Auto) 0.3 (0-2) % Absolute Neuts (auto) 11.0 H (1.5-7.7) 10^3/ul Absolute Lymphs (auto) 0.3 L (1.0-4.8) 10^3/ul Absolute Monos (auto) 0.2 (0-0.8) 10^3/ul Absolute Eos (auto) 0.3 (0-0.6) 10^3/ul Absolute Basos (auto) 0 (0-0.2) 10^3/ul Absolute Nucleated RBC 0 10^3/ul Nucleated RBC % 0 INR (Anticoag Therapy) 2.17 H (0.89-1.11) Sodium 134 (133-145) mmol/L Potassium 4.6 (3.5-5.0) mmol/L Chloride 99 L (101-111) mmol/L Carbon Dioxide 28 (22-32) mmol/L Anion Gap 7 (2-11) mmol/L BUN 25 H (6-24) mg/dL Creatinine 1.15 (0.67-1.17) mg/dL Est GFR ( Amer) 77.5 (>60) Est GFR (Non-Af Amer) 60.3 (>60) BUN/Creatinine Ratio 21.7 H (8-20) Glucose 274 H (70-100) mg/dL Lactic Acid (0.5-2.0) mmol/L Calcium 9.1 (8.6-10.3) mg/dL Total Bilirubin 0.60 (0.2-1.0) mg/dL AST 18 (13-39) U/L ALT 16 (7-52) U/L Alkaline Phosphatase 69 (34-104) U/L Troponin I 0.05 H* (<0.04) ng/mL Total Protein 6.6 (6.4-8.9) g/dL Albumin 3.4 (3.2-5.2) g/dL Globulin 3.2 (2-4) g/dL Albumin/Globulin Ratio 1.1 (1-3) /02/27 Range/Units 19:50 WBC (3.5-10.8) 10^3/ul RBC (4.0-5.4) 10^6/ul Hgb (14.0-18.0) g/dl Hct (42-52) % MCV (80-94) fL MCH (27-31) pg MCHC (31-36) g/dl RDW (10.5-15) % Plt Count (150-450) 10^3/ul MPV (7.4-10.4) um3 Neut % (Auto) (38-83) % Lymph % (Auto) (25-47) % [place] % (Auto) (1-9) % Eos % (Auto) (0-6) % Baso % (Auto) (0-2) % Absolute Neuts (auto) (1.5-7.7) 10^3/ul Absolute Lymphs (auto) (1.0-4.8) 10^3/ul Absolute Monos (auto) (0-0.8) 10^3/ul Absolute Eos (auto) (0-0.6) 10^3/ul Absolute Basos (auto) (0-0.2) 10^3/ul Absolute Nucleated RBC 10^3/ul Nucleated RBC % INR (Anticoag Therapy) (0.89-1.11) Sodium (133-145) mmol/L Potassium (3.5-5.0) mmol/L Chloride (101-111) mmol/L Carbon Dioxide (22-32) mmol/L Anion Gap (2-11) mmol/L BUN (6-24) mg/dL Creatinine (0.67-1.17) mg/dL Est GFR ( Amer) (>60) Est GFR (Non-Af Amer) (>60) BUN/Creatinine Ratio (8-20) Glucose (70-100) mg/dL Lactic Acid 2.3 H* (0.5-2.0) mmol/L Calcium (8.6-10.3) mg/dL Total Bilirubin (0.2-1.0) mg/dL AST (13-39) U/L ALT (7-52) U/L Alkaline Phosphatase (34-104) U/L Troponin I (<0.04) ng/mL Total Protein (6.4-8.9) g/dL Albumin (3.2-5.2) g/dL Globulin (2-4) g/dL Albumin/Globulin Ratio (1-3) Result Diagrams: 09/20/16 19:50 09/20/16 19:50 Lab Statement: Any lab studies that have been ordered have been reviewed, and results considered in the medical decision making process. - Radiology CXR Xray Interpretation: No Acute Changes Radiology Interpretation Completed By: Radiologist - Stigmata of advanced chronic obstructive pulmonary disease. No acute cardiopulmonary process evident. - EKG EK EKG Rhythm: Atrial Fibrillation EKG Interpretation: RVR Complex Multi-Symp Course/Dx Course Of Treatment: discussed patient care with Dr. Clarke (Hospitalist) at 2240-patient will be accepted to [facility]. - Diagnoses Provider Diagnoses: UTI (urinary tract infection) - Physician Notifications Instructed by Provider To: Admit As Inpatient Discharge - Discharge Plan Condition: Fair Disposition: ADMITTED TO [facility] documentation as recorded by the Teena green Michael accurately reflects the service I personally performed and the decisions made by me, Charlie Tejeda MD.
[2016-09-20 22:31] LABS: Urine Bacteria 1+ (Absent); Urine Bilirubin Negative (Negative); Urine Glucose Negative (Negative); Urine Nitrite Positive (Negative)
[2016-09-20] MEDS ORDERED: Piperac/Tazob 3.375 gm in NS* 3.375 GM/100 ML BAG IVPB ONE (22:36)
[2016-09-20] MEDS ORDERED: Bisacodyl SUPP* 10 MG SUPP PR PRN (22:40)
[2016-09-20] MEDS ORDERED: Acetaminophen TAB* 325 MG PO PRN (22:40)
[2016-09-20] MEDS ORDERED: Magnesium Hydroxide LIQ* 30 ML UDC PO PRN (22:40)
[2016-09-20] MEDS ORDERED: Albuterol/Ipratropium NEB.SOL* Albuterol 2.5 MG/Ipratropium 0.5 MG 3 ML INH PRN (22:40)
[2016-09-21] MEDS ORDERED: cefTRIAXone VIAL(*) 1,000 MG in NS 0.9% 50 ML* 50 ML IVPB SCH (01:00)
[2016-09-21] MEDS: NS 0.9% 1000 ML* 1,000 ML IV SCH ×2 (01:01→06:03)
--- NOTE | 2016-09-21 01:28 | HP ---
HISTORY AND PHYSICAL: DATE OF ADMISSION: 09/20/16 CHIEF COMPLAINT: Vomiting, confusion and fever. HISTORY OF PRESENT ILLNESS: The patient is an 86-year-old gentleman who is a resident at [facility] who was brought in by ambulance today after it was discovered that he was vomiting and was more confused than usual. Apparently, he has an underlying history of dementia but he was worse. Furthermore, he had a fever of 101.4 upon arrival in the ED. The patient also would not open his eyes for anybody at the nursing facility. From the notes, it is not clear if this is new or not. According to the EMS notes, the patient apparently had not only vomited, but was tachycardic and was hypoxic as well. The patient as noted cannot give us any information but from the chart and from documentation, it appears the patient does likely have a UTI and his presentation is a manifestation of same. PAST MEDICAL HISTORY: He has a past medical history significant for: 1. Atrial fibrillation. 2. Dementia. 3. Hypertension. 4. BPH. 5. CVA x2. 6. Obstructive sleep apnea. 7. Hyperlipidemia. 8. COPD. PAST SURGICAL HISTORY: No past surgical history. CURRENT MEDICATIONS: As follows: 1. Coumadin 4 mg Sunday, Sunday, Sunday, and Sunday; 3 mg Sunday and Sunday. 2. Tylenol 650 mg every 4 hours as needed. 3. Spiriva 1 inhalation daily. 4. Terazosin 10 mg daily. 5. Zocor 20 mg at bedtime. 6. Potassium chloride 20 mEq daily. 7. Omeprazole 20 mg daily. 8. Milk of magnesia 30 cc daily with meals as needed. 9. Metoprolol succinate 150 mg daily. 10. Ipratropium bromide 0.6 % both nares twice a day with meals. 11. Furosemide 20 mg in the morning. 12. DuoNeb 1 inhalation q.4 h. as needed. 13. Guaifenesin 250 mg twice daily. 14. Bisacodyl 10 mg AR daily as needed. 15. Aspirin 81 mg daily. 16. Prednisone 5 mg every other day. 17. Pulmicort 1 nebulizer inhale daily ALLERGIES: He has no known drug allergies. FAMILY HISTORY: His father had [place] and coronary artery disease. SOCIAL HISTORY: Ex-tobacco. No alcohol or recreational drug use. He is a resident at [facility] and his surrogate decision maker is his son, Yvette. REVIEW OF SYSTEMS: Unable to obtain from patient. PHYSICAL EXAMINATION GENERAL: Elderly gentleman lying in bed in no acute distress. VITAL SIGNS: Tmax 101.5, heart rate 121 beats per minute, respiratory rate 21 breaths per minute, pulse ox 100%, blood pressure 119/66. HEENT: Normocephalic, atraumatic. Pupils equal, round and reactive to light. Moist mucous membranes. NECK: Supple. No JVD, bruits, palpable thyroid or lymphadenopathy. CHEST: Clear to auscultation and percussion bilaterally. CARDIOVASCULAR: S1, S2 appreciated. ABDOMEN: Positive bowel sounds in all 4 quadrants. Soft, nontender, nondistended. EXTREMITIES: No cyanosis, clubbing. Mild edema. +2 pulses bilaterally. NEUROLOGIC: Alert and oriented x1. Moves all extremities. SKIN: Cool and clammy with no distinct rashes or abnormalities. DIAGNOSTIC STUDIES/LABORATORY DATA: White count 11.8, hemoglobin 11.8, hematocrit 37, platelets 153. Sodium 134, potassium 4.6, chloride 99, CO2 20, BUN 25, creatinine 1.15, glucose is 274. Lactic acid is 2.3, troponin is 0.05. INR 2.17. Urinalysis is +2 leukocyte esterase, +3 WBCs, +3 RBCs, +1 bacteria. Chest x-ray shows no acute abnormalities. Stigmata of advanced COPD disease. EKG shows atrial fibrillation with rapid ventricular response. No acute ST-T wave changes. ASSESSMENT AND PLAN: 1. Sepsis secondary to urinary tract infection. Start patient on Rocephin 1 g IV every day. Normal saline 75 cc an hour. Anticipate patient should turn around rather quickly. 2. Atrial fibrillation. INR is therapeutic. Heart rate is somewhat high to current regimen. I anticipate his heart will come down as soon as he is treated for his urinary tract infection. 3. Benign prostatic hypertrophy. Continue terazosin. 4. Hypertension. Continue current regimen. BP adequately controlled. 5. chronic obstructive pulmonary disease. Continue Spiriva, DuoNeb and prednisone. The patient is pretty stable from this perspective. 6. FEN. Regular diet. 7. DVT prophylaxis. He is on Coumadin. 8. The patient is a do not resuscitate. TIME SPENT: Over 75 minutes were spent on this H and P; more than 40 minutes of which was spent in direct [id number] contact with the patient in evaluation , physical exam, counseling, and coordination of care. CC: Ailyn Hardy MD* [id number]/[facility] #: [id number] [id number]
[2016-09-21] MEDS: Tiotropium CAP.INH* CAP.INH/18 MCG INH SCH (07:57)
[2016-09-21] MEDS: Budesonide NEB* 0.25 MG/2 ML NEB.SOLN INH SCH (07:57)
[2016-09-21] MEDS: Potassium Chlor TAB* 20 MEQ TAB.ER PO SCH (08:22)
[2016-09-21] MEDS: Aspirin Low Dose CHEW TAB* 81 MG PO SCH (08:22)
[2016-09-21] MEDS: Metoprolol Succinate XL TAB* 50 MG PO SCH (08:22)
[2016-09-21] MEDS: guaiFENesin LIQ* 100 MG/5 ML UDC PO SCH ×2 (08:23→21:25)
[2016-09-21] MEDS: Terazosin CAP* 5 MG PO SCH (08:23)
[2016-09-21] MEDS: Omeprazole CAP* 20 MG PO SCH (08:23)
[2016-09-21] MEDS ORDERED: Spiriva Inhaler DEVICE* 1 EACH DEVICE INH ONE (09:00)
[2016-09-21] MEDS: IPRATROPIUM BROMIDE 0.06% BOTH NARES SCH ×2 (09:06→16:44)
--- NOTE | 2016-09-21 10:25 | PN ---
Subjective Date of Service: 09/21/16 Interval History: Patient seen this morning. Mental status improved, responsive, although clearly with dementia and memory problems. Says he is feeling well, no pain, no SOB. Could not tell me where he is or where he currently resides, cannot recall if he normally wears oxygen. Spoke with Dr. Hardy who states patient had N/V initially (GI bug going around at [place]) and quickly developed hypoxia and respiratory distress. He is not on baseline oxygen although has been in the past. Family History: Unchanged from Admission Social History: Unchanged from Admission Past Medical History: Unchanged from Admission Objective Active Medications: Acetaminophen (Tylenol Tab*) 650 mg PO Q4H PRN Albuterol/Ipratropium (Duoneb (Albuterol 2.5 Mg/Ipratropium 0.5 Mg)) 1 neb INH Q4H PRN Aspirin (Aspirin Low Dose Tab*) 81 mg PO DAILY SHIELA Atorvastatin Calcium (Lipitor*) 10 mg PO BEDTIME SHIELA Bisacodyl (Dulcolax Supp*) 10 mg DE DAILY PRN Budesonide (Pulmicort Neb*) 0.25 mg INH DAILY SHIELA Guaifenesin (Robitussin*) 10 ml PO BID SHIELA Ceftriaxone Sodium 1,000 mg/ (Sodium Chloride) 50 mls @ 200 mls/hr IVPB Q24H SHIELA Magnesium Hydroxide (Milk Of MagnFIRSTGATE Holding Liq*) 30 ml PO DAILY WITH MEAL PRN Metoprolol Succinate (Toprol Xl Tab*) 150 mg PO DAILY [facility] Ipratropium Guinda (Nasal) [Ipratropium Guinda] 0.06 % 0.06 % BOTH NARES BID AC [facility] Omeprazole (Prilosec Cap*) 20 mg PO DAILY@0730 [facility] Pharmacy Profile Note (Coumadin Daily Reminder*) 1 note FOLLOW UP 1700 [facility] Potassium Chloride (Klor Con Er Tab*) 20 meq PO DAILY WITH MEAL [facility] Prednisone (Deltasone Tab*) 5 mg PO EVERY OTHER DAY@0830 [facility] Terazosin HCl (Hytrin Cap*) 10 mg PO DAILY SHIELA Tiotropium Guinda (Spiriva Cap.Inh*) 1 cap INH DAILY SHIELA Warfarin Sodium (Coumadin Tab(*)) 3 mg PO WeSa@1700 [facility] Warfarin Sodium (Coumadin Tab(*)) 4 mg PO SuMoTuThFr@1700 [facility] Vital Signs 05/03/3009/21/16 09/21/16 00:04 00:24 00:30 Temperature 97.7 F 97.7 F Pulse Rate 90 90 Respiratory 24 24 24 Rate Blood Pressure 121/63 121/63 (mmHg) O2 Sat by Pulse 100 100 Oximetry 09/21/16 09/21/16 09/21/16 07:17 08:00 08:02 Temperature 97.5 F Pulse Rate 83 80 Respiratory 18 18 Rate Blood Pressure 130/67 (mmHg) O2 Sat by Pulse 100 99 Oximetry Oxygen Devices in Use Now: Nasal Cannula - 3.5 L Appearance: Elderly, M, sitting in bed in NAD Eyes: No Scleral Icterus Ears/Nose/Mouth/Throat: Mucous Membranes Moist Neck: NL Appearance and Movements; NL JVP Respiratory: Symmetrical Chest Expansion and Respiratory Effort, - - Diminished BS throughout, no ronchi or rales appreciated, no wheezing Cardiovascular: NL Sounds; No Murmurs; No JVD, - - IRIR Abdominal: NL Sounds; No Tenderness; No Distention Lymphatic: No Cervical Adenopathy Extremities: - - B/L LE edema Skin: No Rash or Ulcers Neurological: - - Alert, oriented to self only, no focal deficits Result Diagrams: 09/20/16 19:50 09/20/16 19:50 Additional Lab and Data: Lab Results 09/20/16 09/20/16 09/20/16 Range/Units 19:50 19:50 19:50 WBC 11.8 H (3.5-10.8) 10^3/ul RBC 4.50 (4.0-5.4) 10^6/ul Hgb 11.8 L (14.0-18.0) g/dl Hct 37 L (42-52) % MCV 83 (80-94) fL MCH 26 L (27-31) pg MCHC 32 (31-36) g/dl RDW 19 H (10.5-15) % Plt Count 153 (150-450) 10^3/ul MPV 10 (7.4-10.4) um3 Neut % (Auto) 93.0 H (38-83) % Lymph % (Auto) 2.6 L (25-47) % [place] % (Auto) 1.9 (1-9) % Eos % (Auto) 2.2 (0-6) % Baso % (Auto) 0.3 (0-2) % Absolute Neuts (auto) 11.0 H (1.5-7.7) 10^3/ul Absolute Lymphs (auto) 0.3 L (1.0-4.8) 10^3/ul Absolute Monos (auto) 0.2 (0-0.8) 10^3/ul Absolute Eos (auto) 0.3 (0-0.6) 10^3/ul Absolute Basos (auto) 0 (0-0.2) 10^3/ul Absolute Nucleated RBC 0 10^3/ul Nucleated RBC % 0 INR (Anticoag Therapy) 2.17 H (0.89-1.11) Sodium 134 (133-145) mmol/L Potassium 4.6 (3.5-5.0) mmol/L Chloride 99 L (101-111) mmol/L Carbon Dioxide 28 (22-32) mmol/L Anion Gap 7 (2-11) mmol/L BUN 25 H (6-24) mg/dL Creatinine 1.15 (0.67-1.17) mg/dL Est GFR ( Amer) 77.5 (>60) Est GFR (Non-Af Amer) 60.3 (>60) BUN/Creatinine Ratio 21.7 H (8-20) Glucose 274 H (70-100) mg/dL Lactic Acid (0.5-2.0) mmol/L Calcium 9.1 (8.6-10.3) mg/dL Total Bilirubin 0.60 (0.2-1.0) mg/dL AST 18 (13-39) U/L ALT 16 (7-52) U/L Alkaline Phosphatase 69 (34-104) U/L Troponin I 0.05 H* (<0.04) ng/mL Total Protein 6.6 (6.4-8.9) g/dL Albumin 3.4 (3.2-5.2) g/dL Globulin 3.2 (2-4) g/dL Albumin/Globulin Ratio 1.1 (1-3) /02/27 Range/Units 19:50 WBC (3.5-10.8) 10^3/ul RBC (4.0-5.4) 10^6/ul Hgb (14.0-18.0) g/dl Hct (42-52) % MCV (80-94) fL MCH (27-31) pg MCHC (31-36) g/dl RDW (10.5-15) % Plt Count (150-450) 10^3/ul MPV (7.4-10.4) um3 Neut % (Auto) (38-83) % Lymph % (Auto) (25-47) % [place] % (Auto) (1-9) % Eos % (Auto) (0-6) % Baso % (Auto) (0-2) % Absolute Neuts (auto) (1.5-7.7) 10^3/ul Absolute Lymphs (auto) (1.0-4.8) 10^3/ul Absolute Monos (auto) (0-0.8) 10^3/ul Absolute Eos (auto) (0-0.6) 10^3/ul Absolute Basos (auto) (0-0.2) 10^3/ul Absolute Nucleated RBC 10^3/ul Nucleated RBC % INR (Anticoag Therapy) (0.89-1.11) Sodium (133-145) mmol/L Potassium (3.5-5.0) mmol/L Chloride (101-111) mmol/L Carbon Dioxide (22-32) mmol/L Anion Gap (2-11) mmol/L BUN (6-24) mg/dL Creatinine (0.67-1.17) mg/dL Est GFR ( Amer) (>60) Est GFR (Non-Af Amer) (>60) BUN/Creatinine Ratio (8-20) Glucose (70-100) mg/dL Lactic Acid 2.3 H* (0.5-2.0) mmol/L Calcium (8.6-10.3) mg/dL Total Bilirubin (0.2-1.0) mg/dL AST (13-39) U/L ALT (7-52) U/L Alkaline Phosphatase (34-104) U/L Troponin I (<0.04) ng/mL Total Protein (6.4-8.9) g/dL Albumin (3.2-5.2) g/dL Globulin (2-4) g/dL Albumin/Globulin Ratio (1-3) Assess/Plan/Problems-Billing Assessment: Acute hypoxic respiratory failure 2/2 aspiration PNA/pneumonitis with possible UTI in an 86 yo M with hx of HTN, CVA, AFib on coumadin, COPD not on home O2, dementia, HLD, BPH, chronic indwelling ramirez - Patient Problems (1) Aspiration pneumonia Current Visit: Yes Comment: vs pneumonitis causing acute hypoxic respiratory failure. Initial CXR fairly unremarkable but early in course. Will broaden to Zosyn for now to cover additional aspiration pathogens. Wean O2 as able, will stop IVF and restart Lasix as patient appears fluid overloaded. (2) Urinary tract infection Current Visit: No Comment: Patient has chronic ramirez. Will continue to cover for urinary pathogens but broaden to Zosyn as above. (3) Afib Current Visit: No Comment: Rate improved, continue metoprolol and coumadin. (4) COPD (chronic obstructive pulmonary disease) Current Visit: No Comment: Continue home nebs/inhalers and every other day prednisone (5) BPH (benign prostatic hyperplasia) Current Visit: No Comment: Continue terazosin. Chronic ramirez in place. (6) DVT prophylaxis Current Visit: No Comment: Warfarin Therapeutic INR Status and Disposition: Inpatient for acute hypoxic respiratory failure, aspiration PNA, UTI
[2016-09-21] MEDS ORDERED: Piperac/Tazob 3.375 gm in NS* 3.375 GM/100 ML BAG IVPB ONE (11:00)
[2016-09-21] MEDS: Furosemide TAB* 20 MG PO SCH (11:20)
[2016-09-21] MEDS: Piperac/Tazob 3.375 gm in NS* 3.375 GM/100 ML BAG IVPB SCH ×2 (15:30→22:56)
[2016-09-21] MEDS ORDERED: Warfarin TAB(*) 4 MG PO SCH (17:00)
[2016-09-21] MEDS: Atorvastatin* 10 MG TAB PO SCH (21:25)
[2016-09-22] MEDS: Piperac/Tazob 3.375 gm in NS* 3.375 GM/100 ML BAG IVPB SCH ×3 (06:19→22:54)
[2016-09-22] MEDS: IPRATROPIUM BROMIDE 0.06% BOTH NARES SCH ×2 (07:57→15:48)
[2016-09-22] MEDS: Terazosin CAP* 5 MG PO SCH (08:05)
[2016-09-22] MEDS: Aspirin Low Dose CHEW TAB* 81 MG PO SCH (08:05)
[2016-09-22] MEDS: Furosemide TAB* 20 MG PO SCH (08:05)
[2016-09-22] MEDS: Potassium Chlor TAB* 20 MEQ TAB.ER PO SCH (08:05)
[2016-09-22] MEDS: Metoprolol Succinate XL TAB* 50 MG PO SCH (08:05)
[2016-09-22] MEDS: guaiFENesin LIQ* 100 MG/5 ML UDC PO SCH ×2 (08:05→21:40)
[2016-09-22] MEDS: Omeprazole CAP* 20 MG PO SCH (08:05)
[2016-09-22] MEDS: Budesonide NEB* 0.25 MG/2 ML NEB.SOLN INH SCH (08:14)
[2016-09-22] MEDS: Tiotropium CAP.INH* CAP.INH/18 MCG INH SCH (08:14)
[2016-09-22] MEDS ORDERED: predniSONE TAB* 10 MG PO SCH (08:30)
[2016-09-22] MEDS ORDERED: Warfarin TAB(*) 2.5 MG PO SCH (17:00)
[2016-09-22] MEDS: Atorvastatin* 10 MG TAB PO SCH (21:40)
[2016-09-23] MEDS: Piperac/Tazob 3.375 gm in NS* 3.375 GM/100 ML BAG IVPB SCH (06:20)
--- NOTE | 2016-09-23 08:25 | PN ---
Subjective Date of Service: 09/22/16 Interval History: Patient not able to make his needs known. Family History: Unchanged from Admission Social History: Unchanged from Admission Past Medical History: Unchanged from Admission Objective Active Medications: Acetaminophen (Tylenol Tab*) 650 mg PO Q4H PRN PRN Reason: PAIN Albuterol/Ipratropium (Duoneb (Albuterol 2.5 Mg/Ipratropium 0.5 Mg)) 1 neb INH Q4H PRN PRN Reason: wheezing/sob Aspirin (Aspirin Low Dose Tab*) 81 mg PO DAILY [facility] Last Admin: 09/22/16 08:05 Dose: 81 mg Atorvastatin Calcium (Lipitor*) 10 mg PO BEDTIME [facility] Last Admin: 09/22/16 21:40 Dose: 10 mg Bisacodyl (Dulcolax Supp*) 10 mg [place] DAILY PRN PRN Reason: CONSTIPATION Budesonide (Pulmicort Neb*) 0.25 mg INH DAILY [facility] Last Admin: 09/22/16 08:14 Dose: 0.25 mg Guaifenesin (Robitussin*) 10 ml PO BID [facility] Last Admin: 09/22/16 21:40 Dose: 10 ml Piperacillin Sod/Tazobactam Sod (Zosyn 3.375 Gm In Ns Premix*) 3.375 gm in 100 mls @ 25 mls/hr IVPB Q8H [facility] Last Admin: 09/23/16 06:20 Dose: 25 mls/hr Magnesium Hydroxide (Milk Of Magnesia Liq*) 30 ml PO DAILY WITH MEAL PRN PRN Reason: CONSTIPATION Last Admin: 09/22/16 17:07 Dose: 30 ml Metoprolol Succinate (Toprol Xl Tab*) 150 mg PO DAILY [facility] Last Admin: 09/22/16 08:05 Dose: 150 mg Ipratropium [place] (Nasal) [Ipratropium [place]] 0.06 % 0.06 % BOTH NARES BID AC [facility] Last Admin: 09/22/16 15:48 Dose: Not Given Omeprazole (Prilosec Cap*) 20 mg PO DAILY@0730 [facility] Last Admin: 09/22/16 08:05 Dose: 20 mg Pharmacy Profile Note (Coumadin Daily Reminder*) 1 note FOLLOW UP 1700 [facility] Last Admin: 09/22/16 17:10 Dose: 1 note Prednisone (Deltasone Tab*) 5 mg PO EVERY OTHER DAY@0830 [facility] Last Admin: 09/22/16 08:05 Dose: 5 mg Terazosin HCl (Hytrin Cap*) 10 mg PO DAILY [facility] Last Admin: 09/22/16 08:05 Dose: 10 mg Tiotropium [place] (Spiriva Cap.Inh*) 1 cap INH DAILY [facility] Last Admin: 09/22/16 08:14 Dose: 1 cap Warfarin Sodium (Coumadin Tab(*)) 2.5 mg PO DAILY@1700 [facility] PRN Reason: Protocol Last Admin: 09/22/16 17:07 Dose: 2.5 mg Vital Signs 09/22/16 09/22/16 09/22/16 15:34 19:24 20:00 Temperature 98.1 F 97.9 F Pulse Rate 87 75 Respiratory 20 20 16 Rate Blood Pressure 141/75 132/74 (mmHg) O2 Sat by Pulse 97 97 Oximetry 09/22/16 09/23/16 23:15 04:57 Temperature 97.8 F 98.3 F Pulse Rate 49 84 Respiratory 16 16 Rate Blood Pressure 139/54 118/48 (mmHg) O2 Sat by Pulse 100 96 Oximetry Oxygen Devices in Use Now: Nasal Cannula - 3.5 L Appearance: Alert, partly up in bed. Neutral affect. Looks comfortable. Eyes: No Scleral Icterus Ears/Nose/Mouth/Throat: Clear Oropharnyx, Mucous Membranes Moist Neck: NL Appearance and Movements; NL JVP, No Thyroid Enlargement, Masses Respiratory: Symmetrical Chest Expansion and Respiratory Effort, Clear to Auscultation, Clear to Percussion Cardiovascular: NL Sounds; No Murmurs; No JVD, RRR, No Edema, - Extremities: No Edema, No Clubbing, Cyanosis, - Skin: No Rash or Ulcers, No Nodules or Sclerosis, - Neurological: NL Sensation - Almost all his speech is inappropriate. He can't answer any simple question, can't state his name. No tremor. Result Diagrams: 09/20/16 19:50 09/20/16 19:50 Additional Lab and Data: Lab Results 09/20/16 09/20/16 09/20/16 Range/Units 19:50 19:50 19:50 WBC 11.8 H (3.5-10.8) 10^3/ul RBC 4.50 (4.0-5.4) 10^6/ul Hgb 11.8 L (14.0-18.0) g/dl Hct 37 L (42-52) % MCV 83 (80-94) fL MCH 26 L (27-31) pg MCHC 32 (31-36) g/dl RDW 19 H (10.5-15) % Plt Count 153 (150-450) 10^3/ul MPV 10 (7.4-10.4) um3 Neut % (Auto) 93.0 H (38-83) % Lymph % (Auto) 2.6 L (25-47) % [place] % (Auto) 1.9 (1-9) % Eos % (Auto) 2.2 (0-6) % Baso % (Auto) 0.3 (0-2) % Absolute Neuts (auto) 11.0 H (1.5-7.7) 10^3/ul Absolute Lymphs (auto) 0.3 L (1.0-4.8) 10^3/ul Absolute Monos (auto) 0.2 (0-0.8) 10^3/ul Absolute Eos (auto) 0.3 (0-0.6) 10^3/ul Absolute Basos (auto) 0 (0-0.2) 10^3/ul Absolute Nucleated RBC 0 10^3/ul Nucleated RBC % 0 INR (Anticoag Therapy) 2.17 H (0.89-1.11) Sodium 134 (133-145) mmol/L Potassium 4.6 (3.5-5.0) mmol/L Chloride 99 L (101-111) mmol/L Carbon Dioxide 28 (22-32) mmol/L Anion Gap 7 (2-11) mmol/L BUN 25 H (6-24) mg/dL Creatinine 1.15 (0.67-1.17) mg/dL Est GFR ( Amer) 77.5 (>60) Est GFR (Non-Af Amer) 60.3 (>60) BUN/Creatinine Ratio 21.7 H (8-20) Glucose 274 H (70-100) mg/dL Lactic Acid (0.5-2.0) mmol/L Calcium 9.1 (8.6-10.3) mg/dL Total Bilirubin 0.60 (0.2-1.0) mg/dL AST 18 (13-39) U/L ALT 16 (7-52) U/L Alkaline Phosphatase 69 (34-104) U/L Troponin I 0.05 H* (<0.04) ng/mL Total Protein 6.6 (6.4-8.9) g/dL Albumin 3.4 (3.2-5.2) g/dL Globulin 3.2 (2-4) g/dL Albumin/Globulin Ratio 1.1 (1-3) 05/02/27 Range/Units 19:50 WBC (3.5-10.8) 10^3/ul RBC (4.0-5.4) 10^6/ul Hgb (14.0-18.0) g/dl Hct (42-52) % MCV (80-94) fL MCH (27-31) pg MCHC (31-36) g/dl RDW (10.5-15) % Plt Count (150-450) 10^3/ul MPV (7.4-10.4) um3 Neut % (Auto) (38-83) % Lymph % (Auto) (25-47) % [place] % (Auto) (1-9) % Eos % (Auto) (0-6) % Baso % (Auto) (0-2) % Absolute Neuts (auto) (1.5-7.7) 10^3/ul Absolute Lymphs (auto) (1.0-4.8) 10^3/ul Absolute Monos (auto) (0-0.8) 10^3/ul Absolute Eos (auto) (0-0.6) 10^3/ul Absolute Basos (auto) (0-0.2) 10^3/ul Absolute Nucleated RBC 10^3/ul Nucleated RBC % INR (Anticoag Therapy) (0.89-1.11) Sodium (133-145) mmol/L Potassium (3.5-5.0) mmol/L Chloride (101-111) mmol/L Carbon Dioxide (22-32) mmol/L Anion Gap (2-11) mmol/L BUN (6-24) mg/dL Creatinine (0.67-1.17) mg/dL Est GFR ( Amer) (>60) Est GFR (Non-Af Amer) (>60) BUN/Creatinine Ratio (8-20) Glucose (70-100) mg/dL Lactic Acid 2.3 H* (0.5-2.0) mmol/L Calcium (8.6-10.3) mg/dL Total Bilirubin (0.2-1.0) mg/dL AST (13-39) U/L ALT (7-52) U/L Alkaline Phosphatase (34-104) U/L Troponin I (<0.04) ng/mL Total Protein (6.4-8.9) g/dL Albumin (3.2-5.2) g/dL Globulin (2-4) g/dL Albumin/Globulin Ratio (1-3) Assess/Plan/Problems-Billing Assessment: Acute hypoxic respiratory failure 2/2 aspiration PNA/pneumonitis with possible UTI in an 86 yo M with hx of HTN, CVA, AFib on coumadin, COPD not on home O2, dementia, HLD, BPH, chronic indwelling ramirez - Patient Problems (1) UTI (urinary tract infection) Current Visit: No Status: Acute Comment: C&S pending, cont pip.ellie. (2) Aspiration pneumonia Current Visit: Yes Status: Acute Code(s): J69.0 - PNEUMONITIS DUE TO INHALATION OF FOOD AND VOMIT SNOMED Code(s): 110564308 Comment: vs pneumonitis causing acute hypoxic respiratory failure. Initial CXR fairly unremarkable but early in course. COntinue Zosyn for now to cover additional aspiration pathogens. Wean O2 as able, will stop IVF. Stop Lasix, no clear benefit as of 09/22. (3) Afib Current Visit: No Status: Acute Code(s): I48.91 - UNSPECIFIED ATRIAL FIBRILLATION SNOMED Code(s): 80536788 Comment: Rate improved, continue metoprolol and coumadin. (4) Atrial fibrillation with RVR Current Visit: No Status: Acute Code(s): I48.91 - UNSPECIFIED ATRIAL FIBRILLATION SNOMED Code(s): 656485540438574 Comment: Continue metoprolol. Reduce warfarin to 2.5 mg daily. (5) COPD (chronic obstructive pulmonary disease) Current Visit: No Status: Chronic Code(s): J44.9 - CHRONIC OBSTRUCTIVE PULMONARY DISEASE, UNSPECIFIED SNOMED Code(s): 62731782 Comment: Continue home nebs/inhalers and every other day prednisone (6) BPH (benign prostatic hyperplasia) Current Visit: No Status: Acute Priority: High Code(s): N40.0 - BENIGN PROSTATIC HYPERPLASIA WITHOUT LOWER URINRY TRACT SYMP SNOMED Code(s): 839397351 Comment: Continue terazosin. Chronic ramirez in place. Ramirez was changed this admission. Status and Disposition: Inpatient for acute hypoxic respiratory failure, aspiration PNA, UTI
[2016-09-23] MEDS: IPRATROPIUM BROMIDE 0.06% BOTH NARES SCH (08:36)
--- NOTE | 2016-09-23 08:39 | DCNOTE ---
Subjective Date of Service: 09/23/16 Interval History: Patient not able to make his needs known. Family History: Unchanged from Admission Social History: Unchanged from Admission Past Medical History: Unchanged from Admission Objective Active Medications: Acetaminophen (Tylenol Tab*) 650 mg PO Q4H PRN PRN Reason: PAIN Albuterol/Ipratropium (Duoneb (Albuterol 2.5 Mg/Ipratropium 0.5 Mg)) 1 neb INH Q4H PRN PRN Reason: wheezing/sob Aspirin (Aspirin Low Dose Tab*) 81 mg PO DAILY [facility] Last Admin: 09/22/16 08:05 Dose: 81 mg Atorvastatin Calcium (Lipitor*) 10 mg PO BEDTIME [facility] Last Admin: 09/22/16 21:40 Dose: 10 mg Bisacodyl (Dulcolax Supp*) 10 mg [place] DAILY PRN PRN Reason: CONSTIPATION Budesonide (Pulmicort Neb*) 0.25 mg INH DAILY [facility] Last Admin: 09/22/16 08:14 Dose: 0.25 mg Guaifenesin (Robitussin*) 10 ml PO BID [facility] Last Admin: 09/22/16 21:40 Dose: 10 ml Piperacillin Sod/Tazobactam Sod (Zosyn 3.375 Gm In Ns Premix*) 3.375 gm in 100 mls @ 25 mls/hr IVPB Q8H [facility] Last Admin: 09/23/16 06:20 Dose: 25 mls/hr Magnesium Hydroxide (Milk Of Magnesia Liq*) 30 ml PO DAILY WITH MEAL PRN PRN Reason: CONSTIPATION Last Admin: 09/22/16 17:07 Dose: 30 ml Metoprolol Succinate (Toprol Xl Tab*) 150 mg PO DAILY [facility] Last Admin: 09/22/16 08:05 Dose: 150 mg Ipratropium [place] (Nasal) [Ipratropium [place]] 0.06 % 0.06 % BOTH NARES BID AC [facility] Last Admin: 09/22/16 15:48 Dose: Not Given Omeprazole (Prilosec Cap*) 20 mg PO DAILY@0730 [facility] Last Admin: 09/22/16 08:05 Dose: 20 mg Pharmacy Profile Note (Coumadin Daily Reminder*) 1 note FOLLOW UP 1700 [facility] Last Admin: 09/22/16 17:10 Dose: 1 note Prednisone (Deltasone Tab*) 5 mg PO EVERY OTHER DAY@0830 [facility] Last Admin: 09/22/16 08:05 Dose: 5 mg Terazosin HCl (Hytrin Cap*) 10 mg PO DAILY [facility] Last Admin: 09/22/16 08:05 Dose: 10 mg Tiotropium [place] (Spiriva Cap.Inh*) 1 cap INH DAILY [facility] Last Admin: 09/22/16 08:14 Dose: 1 cap Warfarin Sodium (Coumadin Tab(*)) 2.5 mg PO DAILY@1700 [facility] PRN Reason: Protocol Last Admin: 09/22/16 17:07 Dose: 2.5 mg Vital Signs 09/22/16 09/22/16 09/22/16 15:34 19:24 20:00 Temperature 98.1 F 97.9 F Pulse Rate 87 75 Respiratory 20 20 16 Rate Blood Pressure 141/75 132/74 (mmHg) O2 Sat by Pulse 97 97 Oximetry 09/22/16 09/23/16 23:15 04:57 Temperature 97.8 F 98.3 F Pulse Rate 49 84 Respiratory 16 16 Rate Blood Pressure 139/54 118/48 (mmHg) O2 Sat by Pulse 100 96 Oximetry Oxygen Devices in Use Now: Nasal Cannula - 3.5 L Appearance: Alert, sitting up in bed. Neutral affect. Looks comfortable. Eyes: No Scleral Icterus Neck: NL Appearance and Movements; NL JVP, No Thyroid Enlargement, Masses Respiratory: Symmetrical Chest Expansion and Respiratory Effort, Clear to Auscultation, Clear to Percussion Cardiovascular: NL Sounds; No Murmurs; No JVD, RRR, No Edema, - Extremities: No Edema, No Clubbing, Cyanosis, - Skin: No Rash or Ulcers, No Nodules or Sclerosis, - Neurological: NL Sensation - Talking out loud with his eyes closed, alone in his room when I entered. He opened his eyes immediately when I spoke and said "Who are you?" Thereafter his speech was inappropriate. He could not tell me his name or answer any other questions appropriately. No tremor. Result Diagrams: 09/20/16 19:50 09/20/16 19:50 Additional Lab and Data: Lab Results 09/20/16 09/20/16 09/20/16 Range/Units 19:50 19:50 19:50 WBC 11.8 H (3.5-10.8) 10^3/ul RBC 4.50 (4.0-5.4) 10^6/ul Hgb 11.8 L (14.0-18.0) g/dl Hct 37 L (42-52) % MCV 83 (80-94) fL MCH 26 L (27-31) pg MCHC 32 (31-36) g/dl RDW 19 H (10.5-15) % Plt Count 153 (150-450) 10^3/ul MPV 10 (7.4-10.4) um3 Neut % (Auto) 93.0 H (38-83) % Lymph % (Auto) 2.6 L (25-47) % [place] % (Auto) 1.9 (1-9) % Eos % (Auto) 2.2 (0-6) % Baso % (Auto) 0.3 (0-2) % Absolute Neuts (auto) 11.0 H (1.5-7.7) 10^3/ul Absolute Lymphs (auto) 0.3 L (1.0-4.8) 10^3/ul Absolute Monos (auto) 0.2 (0-0.8) 10^3/ul Absolute Eos (auto) 0.3 (0-0.6) 10^3/ul Absolute Basos (auto) 0 (0-0.2) 10^3/ul Absolute Nucleated RBC 0 10^3/ul Nucleated RBC % 0 INR (Anticoag Therapy) 2.17 H (0.89-1.11) Sodium 134 (133-145) mmol/L Potassium 4.6 (3.5-5.0) mmol/L Chloride 99 L (101-111) mmol/L Carbon Dioxide 28 (22-32) mmol/L Anion Gap 7 (2-11) mmol/L BUN 25 H (6-24) mg/dL Creatinine 1.15 (0.67-1.17) mg/dL Est GFR ( Amer) 77.5 (>60) Est GFR (Non-Af Amer) 60.3 (>60) BUN/Creatinine Ratio 21.7 H (8-20) Glucose 274 H (70-100) mg/dL Lactic Acid (0.5-2.0) mmol/L Calcium 9.1 (8.6-10.3) mg/dL Total Bilirubin 0.60 (0.2-1.0) mg/dL AST 18 (13-39) U/L ALT 16 (7-52) U/L Alkaline Phosphatase 69 (34-104) U/L Troponin I 0.05 H* (<0.04) ng/mL Total Protein 6.6 (6.4-8.9) g/dL Albumin 3.4 (3.2-5.2) g/dL Globulin 3.2 (2-4) g/dL Albumin/Globulin Ratio 1.1 (1-3) /02/27 Range/Units 19:50 WBC (3.5-10.8) 10^3/ul RBC (4.0-5.4) 10^6/ul Hgb (14.0-18.0) g/dl Hct (42-52) % MCV (80-94) fL MCH (27-31) pg MCHC (31-36) g/dl RDW (10.5-15) % Plt Count (150-450) 10^3/ul MPV (7.4-10.4) um3 Neut % (Auto) (38-83) % Lymph % (Auto) (25-47) % [place] % (Auto) (1-9) % Eos % (Auto) (0-6) % Baso % (Auto) (0-2) % Absolute Neuts (auto) (1.5-7.7) 10^3/ul Absolute Lymphs (auto) (1.0-4.8) 10^3/ul Absolute Monos (auto) (0-0.8) 10^3/ul Absolute Eos (auto) (0-0.6) 10^3/ul Absolute Basos (auto) (0-0.2) 10^3/ul Absolute Nucleated RBC 10^3/ul Nucleated RBC % INR (Anticoag Therapy) (0.89-1.11) Sodium (133-145) mmol/L Potassium (3.5-5.0) mmol/L Chloride (101-111) mmol/L Carbon Dioxide (22-32) mmol/L Anion Gap (2-11) mmol/L BUN (6-24) mg/dL Creatinine (0.67-1.17) mg/dL Est GFR ( Amer) (>60) Est GFR (Non-Af Amer) (>60) BUN/Creatinine Ratio (8-20) Glucose (70-100) mg/dL Lactic Acid 2.3 H* (0.5-2.0) mmol/L Calcium (8.6-10.3) mg/dL Total Bilirubin (0.2-1.0) mg/dL AST (13-39) U/L ALT (7-52) U/L Alkaline Phosphatase (34-104) U/L Troponin I (<0.04) ng/mL Total Protein (6.4-8.9) g/dL Albumin (3.2-5.2) g/dL Globulin (2-4) g/dL Albumin/Globulin Ratio (1-3) Assess/Plan/Problems-Billing Assessment: Acute hypoxic respiratory failure 2/2 aspiration PNA/pneumonitis with possible UTI in an 86 yo M with hx of HTN, CVA, AFib on coumadin, COPD not on home O2, dementia, HLD, BPH, chronic indwelling ramirez - Patient Problems (1) UTI (urinary tract infection) Current Visit: No Status: Acute Comment: C&S shows Pseudomonas sens to quinolones. Rx ciprol 500 mg bid x 5 days as outpt. (2) Aspiration pneumonia Current Visit: Yes Status: Acute Code(s): J69.0 - PNEUMONITIS DUE TO INHALATION OF FOOD AND VOMIT SNOMED Code(s): 642308627 Comment: vs pneumonitis causing acute hypoxic respiratory failure. Initial CXR fairly unremarkable but early in course. Cipro as above. O2 sat 94% on RA, 88% when he walked to the BR. Stop Lasix, no clear benefit as of 09/22. (3) Afib Current Visit: No Status: Acute Code(s): I48.91 - UNSPECIFIED ATRIAL FIBRILLATION SNOMED Code(s): 81991917 Comment: Rate improved, continue metoprolol and coumadin. (4) Atrial fibrillation with RVR Current Visit: No Status: Acute Code(s): I48.91 - UNSPECIFIED ATRIAL FIBRILLATION SNOMED Code(s): 467348220451180 Comment: Continue metoprolol. Reduce warfarin to 2.5 mg daily. (5) COPD (chronic obstructive pulmonary disease) Current Visit: No Status: Chronic Code(s): J44.9 - CHRONIC OBSTRUCTIVE PULMONARY DISEASE, UNSPECIFIED SNOMED Code(s): 22449374 Comment: Continue home nebs/inhalers and every other day prednisone (6) BPH (benign prostatic hyperplasia) Current Visit: No Status: Acute Priority: High Code(s): N40.0 - BENIGN PROSTATIC HYPERPLASIA WITHOUT LOWER URINRY TRACT SYMP SNOMED Code(s): 420484551 Comment: Continue terazosin. Chronic ramirez in place. Ramirez was changed this admission. (7) Dementia Current Visit: Yes Status: Acute Code(s): F03.90 - UNSPECIFIED DEMENTIA WITHOUT BEHAVIORAL DISTURBANCE SNOMED Code(s): 77952579 Comment: Advanced dementia. Status and Disposition: Discharge to [facility] now.
[2016-09-23] MEDS: Aspirin Low Dose CHEW TAB* 81 MG PO SCH (08:40)
[2016-09-23] MEDS: guaiFENesin LIQ* 100 MG/5 ML UDC PO SCH (08:40)
--- NOTE | 2016-09-23 08:40 | PN ---
Progress Note - Progress Note Note: Time spent on discharge 45 minutes.
[2016-09-23] MEDS: Metoprolol Succinate XL TAB* 50 MG PO SCH (08:41)
[2016-09-23] MEDS: Tiotropium CAP.INH* CAP.INH/18 MCG INH SCH (08:42)
[2016-09-23] MEDS: Omeprazole CAP* 20 MG PO SCH (08:43)
[2016-09-23] MEDS: Budesonide NEB* 0.25 MG/2 ML NEB.SOLN INH SCH (09:15)
[2016-09-23] MEDS: Terazosin CAP* 5 MG PO SCH (09:27)
[2016-09-23 09:30] VITALS: BP 150/66
[2016-09-23] MEDS ORDERED: Warfarin TAB(*) 3 MG PO SCH (17:00)
--- NOTE | 2016-09-23 17:43 | TRS ---
DISCHARGE SUMMARY: DATE OF ADMISSION: 09/20/16 DATE OF DISCHARGE: 09/23/16 HISTORY: This 86-year-old man presented with vomiting, seizure, and fever. He is a resident of [facility]. He had vomiting and increased confusion. His temperature is 101.4 in the emergency room. He would not open his eyes for anyone at the nursing facility. There were some suspicion that the patient may have had aspiration, although the initial x-ray showe d clear lung salvador. At first he was started on ceftriaxone for UTI and then was changed to piperac illin-tazobactam. His urine culture grow out pseudomonas, sensitive to quinolones. I am going to g nellie him 5 days of ciprofloxacin orally as an outpatient. The urine pathogen was also sensitive to p iperacillin-tazobactam. I note that his Hyman catheter was changed during this admission. I think his mental status improved to baseline. He has advanced dementia and cannot answer any simp le questions, not even state his own name. His O2 sat on room air was 94% at rest, 88% when he walked to the bathroom. I think he is extremely sedentary and probably does not need oxygen. I do not think he was compliant with it in any case. FINAL DIAGNOSES: 1. Possible aspiration pneumonia. 2. Urinary tract infection. 3. BPH with chronic Hyman. 4. Atrial fibrillation. 5. COPD. 6. Advanced dementia. DISCHARGE MEDICATIONS: 1. Ipratropium both nostrils b.i.d. 2. Acetaminophen 650 mg every 4 hours p.r.n. 3. Albuterol ipratropium by nebulizer every 4 hours p.r.n. 4. Aspirin 81 mg daily. 5. Atorvastatin 10 mg h.s. 6. Bisacodyl 10 mg per rectum daily p.r.n. 7. Budesonide 0.25 mg daily. 8. Magnesium hydroxide 30 mL daily p.r.n. 9. Metoprolol succinate 150 mg daily. 10. Omeprazole 20 mg daily. 11. Terazosin 10 mg daily. 12. Tiotropium capsule by inhalation one daily. 13. Warfarin 2.5 mg daily. 14. Guaifenesin 10 mL b.i.d. 15. Prednisone 5 mg every other day. The patient's INR was 2.34 on the day of discharge. I would repeat his INR early next week. [id number]/[facility] #: [id number]
== END 2016-09-23 11:05 | DRG 871 ==
LOC: ED 19:32 → MED 23:47 → OBSVTOIN 23:47
PROVIDERS: ADMIT Internal Medicine; ATTEND Internal Medicine
DX: A41.9 Sepsis, unspecified organism (principal); J96.01 Acute respiratory failure with hypoxia; J69.0 Pneumonitis due to inhalation of food and vomit; N39.0 Urinary tract infection, site not specified; B96.5 Pseudomonas (aeruginosa) (mallei) (pseudomallei) as the cause of diseases classified elsewhere; I48.91 Unspecified atrial fibrillation; J44.9 Chronic obstructive pulmonary disease, unspecified; N40.0 Benign prostatic hyperplasia without lower urinary tract symptoms; F03.90 Unspecified dementia, unspecified severity, without behavioral disturbance, psychotic disturbance, mood disturbance, and anxiety; I10 Essential (primary) hypertension; G47.33 Obstructive sleep apnea (adult) (pediatric); E78.5 Hyperlipidemia, unspecified; Z86.73 Personal history of transient ischemic attack (TIA), and cerebral infarction without residual deficits; Z79.01 Long term (current) use of anticoagulants; Z79.1 Long term (current) use of non-steroidal anti-inflammatories (NSAID); Z79.82 Long term (current) use of aspirin; Z79.52 Long term (current) use of systemic steroids; Z79.899 Other long term (current) drug therapy; Z82.49 Family history of ischemic heart disease and other diseases of the circulatory system; Z87.891 Personal history of nicotine dependence
CPT/HCPCS: 36415; 71020; 80053; 81003; 81015; 83605; 84484; 85025; 85610; 87040; 87077; 87086; 87186; 93005; 94640; 94760; A9270-GY; J0696; J2543; J7512

== ENCOUNTER 2016-12-24 20:13 | Inpatient (IN) | payer MEDICARE ==
[2016-12-24] MEDS ORDERED: Albuterol/Ipratropium NEB.SOL* Albuterol 2.5 MG/Ipratropium 0.5 MG 3 ML INH ONE (20:17)
[2016-12-24 20:27] LABS: Add Diff/Slide Review? Slide Review Added; Comments Flag Yes; Hematocrit 39 % (42-52); Hemoglobin 12.1 g/dl (14.0-18.0); Mean Corpuscular HGB Conc 31 g/dl (31-36); Mean Corpuscular Hemoglobin 26 pg (27-31); Mean Corpuscular Volume 84 fL (80-94); Mean Platelet Volume 10 um3 (7.4-10.4); Red Blood Count 4.61 10^6/ul (4.0-5.4); Red Cell Distribution Width 16 % (10.5-15); White Blood Count 5.5 10^3/ul (3.5-10.8)
[2016-12-24 20:41] LABS: Albumin 3.5 g/dL (3.2-5.2); BUN/Creatinine Ratio 26.3 (8-20); Calcium 9.4 mg/dL (8.6-10.3); EGFR African American 78.3 (>60); EGFR Non-African American 60.9 (>60); Globulin 3.5 g/dL (2-4); Potassium 3.9 mmol/L (3.5-5.0); Total Bilirubin 0.7 mg/dL (0.2-1.0)
[2016-12-24 20:46] LABS: EPAP 6; FIO2 30; IPAP 12; Resp Rate 25
--- NOTE | 2016-12-24 20:47 | RAD ---
Indication: Shortness of breath. Single frontal view of the chest performed at 2024 hours was reviewed. Comparison is made with previous exam dated September 20, 2016. No mediastinal shift is noted. Heart is of is enlarged.. Lung salvador appear clear. No changes noted since previous exam. IMPRESSION: NO ACTIVE CARDIOPULMONARY DISEASE IS NOTED.
[2016-12-24 20:50] LABS: PCO2 Arterial 46 mmHg (35-45)
[2016-12-24 20:50] LABS: Troponin I 0.09 ng/mL (<0.04)
--- NOTE | 2016-12-24 21:56 | ED ---
I, Mason,Galo, scribed for Charlie Tejeda MD on 12/24/16 at 2021 . Shortness of Breath - HPI Summary HPI Summary: DNR/DNI paperwork with pt. This 86 y/o male presents to ED for acute onset of SOB [employer]. Pt is noted with food debris at side of his face, and possible aspiration is considered at initial encounter. Rapid afib noted en route on monitor. Pt is noted with 83 % on RA. CPAP is placed [employer]. PMHx includes recent afib, UTI, COPD, and pulmonary edema. - History of Current Complaint Time Seen by Provider: 12/24/16 20:14 Hx Obtained From: Patient, EMS Onset/Duration: Sudden Onset Timing: Constant Dyspnea At: Rest Associated Signs & Symptoms: Negative - Allergy/Home Medications Allergies/Adverse Reactions: Allergies Allergy/AdvReac Type Severity Reaction Status Date / Time No Known Allergies Allergy Verified 09/20/16 20:55 Home Medications: Home Medications Divalproex DR TAB(*) [Depakote DR TAB(*)] 125 mg PO QAM 12/24/16 [History Confirmed 12/24/16] Divalproex DR TAB(*) [Depakote DR TAB(*)] 250 mg PO QPM 12/24/16 [History Confirmed 12/24/16] Furosemide TAB* [Lasix TAB*] 40 mg PO DAILY 12/24/16 [History Confirmed 12/24/16 ] Potassium Chlor TAB* [Klor Con ER TAB*] 20 meq PO DAILY 12/24/16 [History Confirmed 12/24/16] Rivaroxaban TAB(*) [Xarelto 20 mg] 20 mg PO DAILY 12/24/16 [History Confirmed ] Simvastatin (NF) [Zocor (NF)] 20 mg PO EVERY OTHER DAY 12/24/16 [History Confirmed 12/24/16] glipiZIDE TAB* [Glucotrol TAB*] 2.5 mg PO DAILY 12/24/16 [History Confirmed ] PMH/Surg Hx/FS Hx/Imm Hx Endocrine/Hematology History: Denies: Hx Diabetes Cardiovascular History: Reports: Hx Hypertension, Other Cardiovascular Problems/ Disorders - AFIB Denies: Hx Congestive Heart Failure, Hx Pacemaker/ICD Respiratory History: Reports: Hx Asthma, Hx Chronic Obstructive Pulmonary Disease (COPD), Hx Pulmonary Edema History: Reports: Other Problems/Disorders - chronic catheter Denies: Hx Renal Disease Musculoskeletal History: Reports: Hx Arthritis Sensory History: Reports: Hx Contacts or Glasses, Hx Hearing Problem Denies: Hx Deafness, Hx Hearing Aid Opthamlomology History: Reports: Hx Contacts or Glasses Neurological History: Reports: Hx Dementia, Hx Transient Ischemic Attacks (TIA) Psychiatric History: Denies: Hx Panic Disorder - Immunization History Date of Tetanus Vaccine: unknown - Family History Known Family History: Positive: Cardiac Disease - father - [place] at 52 - Social History Alcohol Use: Unable to determine Hx Substance Use: No Substance Use Type: Reports: None Hx Tobacco Use: Yes Smoking Status (MU): Former Smoker Type: Cigarettes Review of Systems Negative: Fever Positive: Other - afib noted on monitor Positive: Shortness Of Breath All Other Systems Reviewed And Are Negative: Yes Physical Exam Triage Information Reviewed: Yes Vital Signs Reviewed: Yes Completion Of Physical Exam Limited Due To: Extremis Appearance: Positive: Ill-Appearing - moderate resp distress Skin: Positive: Warm Head/Face: Positive: Normal Head/Face Inspection Eyes: Positive: JOEY ENT: Positive: Hearing grossly normal Neck: Positive: Supple Respiratory/Lung Sounds: Positive: Decreased Breath Sounds, Wheezes - svattered diffuse biolat Cardiovascular: Positive: Tachycardia Abdomen Description: Positive: Nontender, Soft Bowel Sounds: Positive: Present Musculoskeletal: Positive: Strength/ROM Intact Psychiatric: Positive: Anxious Diagnostics - Laboratory Result Diagrams: 12/24/16 20:15 12/24/16 20:15 Lab Statement: Any lab studies that have been ordered have been reviewed, and results considered in the medical decision making process. - Radiology CXR Xray Interpretation: No Acute Changes Radiology Interpretation Completed By: Radiologist - EKG 2014 EKG Rhythm: Atrial Fibrillation - afib with RVR Re-Evaluation - Re-Evaluation First Eval Change: Improved Course/Dx - Course Assessment/Plan: This 86 y/o male presents to ED for acute onset of SOB and respiratory distress. Pt is DNR/DNI. He is noted with afib and 83 % on RA upon initial encounter with EMS. EKG in ED room is again noted with afib with RVR. Blood work is noted with 0.09 trop, BNP of 879, and D-dimer of 227. Plan of care is discussed with Dr. Clarke, hospitalist supervisor [employer], and pt is accepted for admission. - Diagnoses Provider Diagnoses: Acute respiratory failure with hypoxia - Physician Notifications Discussed Care of Patient With: Fausto Clarke Time Discussed With Above Provider: 20:20 - Critical Care Time Critical Care Time: 30-74 min Discharge - Discharge Plan Condition: Critical Disposition: ADMITTED TO [facility] documentation as recorded by the Mason green So[place]un accurately reflects the service I personally performed and the decisions made by , Charlie Tejeda MD.
[2016-12-24] MEDS ORDERED: Albuterol/Ipratropium NEB.SOL* Albuterol 2.5 MG/Ipratropium 0.5 MG 3 ML INH PRN (22:02)
[2016-12-24] MEDS ORDERED: Dextrose 50% Syringe 50 ML* 25 GM/50 ML SYRINGE IV PUSH PRN (22:39)
[2016-12-24] MEDS ORDERED: Furosemide IV* 10 MG/ML VIAL (40 MG) IV ONE (22:57)
[2016-12-24] MEDS: cefTRIAXone VIAL(*) 1,000 MG in NS 0.9% 50 ML* 50 ML IVPB SCH (23:46)
[2016-12-24] MEDS: Citalopram TAB* 20 MG PO SCH (23:46)
--- NOTE | 2016-12-25 01:24 | HP ---
CC: [facility] * HISTORY AND PHYSICAL: DATE OF ADMISSION: 12/24/16 CHIEF COMPLAINT: Shortness of breath. HISTORY OF PRESENT ILLNESS: The patient is an 86-year-old gentleman who has been admitted multiple times before, presents today from [place] after getting increasingly short of breath there. The patient apparently is supposed to wear oxygen regularly, but has refused it for years and has not been doing so. Apparently, became increasingly short of breath to the point he was in respiratory distress and they required to put BiPAP on in the field. His family is concerned because it is usually when there is some form of infection. Even urinary tract infection seems to lower his threshold and he gets short of breath. The patient himself denies any chest pain or worsening congestion or cough or wheezing. He is already off the BiPAP and looking somewhat improved. His family noticed that he had some increased fatigue over the last week, but nothing else significant. He has no fevers and no chills. He has no increased swelling. He has not been eating less. He has not walked in a considerable amount of time. He is actually wheelchair bound now initially by his own choice. In the ED, the patient was initially on BiPAP, was taken off and doing better. His x-rays was read as not significantly worse, but I do see some peripheral vascular congestion on it. PAST MEDICAL HISTORY: He has a past medical history significant for atrial fibrillation, advanced dementia, hypertension, BPH, CVA x2, obstructive sleep apnea, hyperlipidemia and COPD. PAST SURGICAL HISTORY: He has no past surgical history. CURRENT MEDICATIONS: 1. Glipizide 2.5 mg daily. 2. Simvastatin 20 mg every other day. 3. Xarelto 20 mg daily. 4. Potassium chloride 20 mEq daily. 5. Furosemide 40 mg daily. 6. Depakote 125 mg in the morning, 250 mg in the evening. 7. Terazosin 10 mg daily. 8. Metoprolol succinate 150 mg daily. 9. Aspirin 81 mg daily. 10. DuoNeb 1 nebulizer every 4 hours as needed. ALLERGIES: He has no known drug allergies. FAMILY HISTORY: Father had an [facility] and had coronary artery disease. SOCIAL HISTORY: Ex-tobacco. No alcohol or recreational drug use. He is a resident at [place]. His son, Cira Slaughter, , is his healthcare proxy. REVIEW OF SYSTEMS: Unable to obtain because of the patient's dementia. PHYSICAL EXAMINATION GENERAL: Pleasant gentleman lying in bed, in no acute distress. VITAL SIGNS: Temperature 97.1 degrees, heart rate is 134 beats per minute, respiratory rate 20 breaths per minute, pulse ox 99%, blood pressure 158/98. HEENT: Normocephalic, atraumatic. Pupils equal, round and reactive to light. He has got moist mucous membranes. NECK: Supple. No JVD, bruits, palpable thyroid, or lymphadenopathy. CHEST: He does have some bibasilar crackles. CARDIOVASCULAR: S1, S2 appreciated. Irregularly irregular rhythm. ABDOMEN: Positive bowel sounds in all 4 quadrants. Soft, nontender, and nondistended. EXTREMITIES: No cyanosis or clubbing. He does have some bilateral edema. NEUROLOGIC: He is alert and oriented x1. Moves all extremities. SKIN: No rashes or distinct abnormalities. DIAGNOSTIC STUDIES/LABORATORY DATA: Sodium 140, potassium 3.9, chloride 98, CO2 34, BUN 30, creatinine 1.4, glucose is 218. Troponin 0.09. White count 5.5 , hemoglobin 12.1, hematocrit 39, platelets 158. INR 2.52. D-dimer 277. ABG, pH 7.46, PCO2 46, PO2 76, O2 97%. ASSESSMENT AND PLAN: 1. Respiratory distress. It is difficult to determine exactly what caused it this time. It could have been a mucus plug. It could have been rapid atrial fibrillation, it could have been some fluid overload. I will give him Lasix 40 IV x1. I will place him in the ICU because his situation is still somewhat tenuous. I will see if we can get his heart rate down, but I do not think he needs a Cardizem drip at this time. I will put him on Rocephin, but not for pneumonia. He has a tendency towards urinary tract infections and this has put him in the same position before, so treat him as if he does at this time. His BNP is pending. He does have an elevated troponin. I will cycle these as well. 2. Diabetes mellitus. Hold glipizide, place on fingerstick with sliding scale insulin. 3. Atrial fibrillation. See above. Continue Xarelto. Metoprolol 150 mg daily. 4. Benign prostatic hypertrophy. Continue terazosin. 5. Possible depression. The patient's family is concerned he might have . I will start him on Celexa. This may help him. 6. DVT prophylaxis, on Xarelto. 7. FEN. Consistent carb diet. 8. The patient is a [id number]. TIME SPENT: Over 75 minutes were spent on this H and P; more than 45 minutes of which was spent in direct [id number] contact with the patient in evaluation , physical exam, counseling, and coordination of care. [id number]/[facility] #: [id number] MANN
--- NOTE | 2016-12-25 08:01 | PN ---
Subjective Date of Service: 12/25/16 Interval History: Patient seen this morning. A bit slow to respond to questioning. Says he is in the hospital and his name is "Prashant". Feels that his SOB is improved. Unable to tell me the year. No other complaints at present. Family History: Unchanged from Admission Social History: Unchanged from Admission Past Medical History: Unchanged from Admission Objective Active Medications: Albuterol/Ipratropium (Duoneb (Albuterol 2.5 Mg/Ipratropium 0.5 Mg)) 1 neb INH Q4HR PRN Aspirin (Aspirin Low Dose Tab*) 81 mg PO DAILY [facility] Atorvastatin Calcium (Lipitor*) 10 mg PO EVERY OTHER DAY [facility] Citalopram Hydrobromide (Celexa Tab*) 20 mg PO DAILY [facility] Dextrose (D50w Syringe 50 Ml*) 12.5 gm IV PUSH .FOR FS < 60 - SS PRN Divalproex Sodium (Depakote Dr Tab(*)) 125 mg PO QAM [facility] Divalproex Sodium (Depakote Dr Tab(*)) 250 mg PO QPM [facility] Furosemide (Lasix Tab*) 40 mg PO DAILY [facility] Ceftriaxone Sodium 1,000 mg/ (Sodium Chloride) 50 mls @ 200 mls/hr IVPB Q24H [facility] Insulin Human Lispro (Humalog*) 0 units SUBCUT ACHS [facility] Metoprolol Succinate (Toprol Xl Tab*) 150 mg PO DAILY [facility] Potassium Chloride (Klor Con Er Tab*) 20 meq PO DAILY [facility] Rivaroxaban (Xarelto (*)) 20 mg PO DAILY [facility] Terazosin HCl (Hytrin Cap*) 10 mg PO DAILY [facility] Vital Signs 12/24/16 12/24/16 12/24/16 23:15 23:28 23:30 Temperature 98.2 F 98.8 F Pulse Rate 93 Respiratory 29 27 Rate Blood Pressure 145/89 (mmHg) O2 Sat by Pulse 100 Oximetry 12/25/16 12/25/16 12/25/16 03:47 03:49 04:00 Temperature 98.0 F Pulse Rate 111 100 92 Respiratory 23 30 20 Rate Blood Pressure 158/72 158/72 (mmHg) O2 Sat by Pulse 82 92 92 Oximetry 12/25/16 12/25/16 12/25/16 04:02 04:16 04:30 Temperature Pulse Rate 98 105 94 Respiratory 28 25 18 Rate Blood Pressure 131/79 164/131 129/75 (mmHg) O2 Sat by Pulse 98 95 99 Oximetry 12/25/16 12/25/16 07:01 07:25 Temperature 97.8 F Pulse Rate 85 Respiratory 18 Rate Blood Pressure 123/72 (mmHg) O2 Sat by Pulse 98 Oximetry Oxygen Devices in Use Now: Simple Face Mask - 5L Appearance: Elderly, M, laying in bed in NAD Eyes: No Scleral Icterus Ears/Nose/Mouth/Throat: - - Dry MM Neck: NL Appearance and Movements; NL JVP Respiratory: Symmetrical Chest Expansion and Respiratory Effort, - - Poor air movement, some expiratory wheezing, do not appreciate any rales Cardiovascular: - - IRIR, normal rate, no m/g/r Abdominal: NL Sounds; No Tenderness; No Distention Lymphatic: No Cervical Adenopathy Extremities: - - Minimal LE edema Skin: No Rash or Ulcers Neurological: - - Lethargic, oriented to self and place only, no focal deficits Lines/Tubes/Other Access: Clean, Dry and Intact Ramirez Result Diagrams: 12/24/16 20:15 12/24/16 20:15 Microbiology and Other Data: Microbiology 12/25/16 01:16 Gram Stain - Final Sputum Induced 12/24/16 23:59 Nasal Screen MRSA (PCR)(RICHARD) - Final Nasal Mrsa Negative Assess/Plan/Problems-Billing Assessment: Acute on chronic hypoxic respiratory failure 2/2 CHF exacerbation vs AFib/RVR vs COPD exacerbation vs mucous plug in an 86 yo M with hx of COPD (non- compliant with O2), AFib on xarelto, dementia, CVA, HLD, ANTIONETTE - Patient Problems (1) Acute respiratory failure with hypoxia Current Visit: No Comment: Possibly multifactorial (COPD exacerbation, mild CHF exacerbation, uncontrolled AFib, ?infection). Currently on 5L Oxymask, improving. Does not seem to be moving air very well, suspect possible mild COPD exacerbation. Will start PO steroids, ATC ipratropium, prn xopenex. Received IV Lasix overnight, BNP was mildly elevated above patients baseline, continue home dosing. CXR relatively clear, no fevers, UA pending. Received CTX, will follow urine results to determine if continued ABx needed. HR better controlled currently. Has had recurrent hospitalizations this year, will ask PC to evaluate (2) Afib Current Visit: No Comment: Rate improved, continue metoprolol and xarelto (3) BPH (benign prostatic hyperplasia) Current Visit: No Comment: Continue terazosin. Chronic ramirez in place. (4) Elevated troponin Current Visit: No Comment: No chest pain. Likely demand ischemia from hypoxia , no further work-up at this time. (5) DVT prophylaxis Current Visit: No Comment: Xarelto
[2016-12-25] MEDS ORDERED: Levalbuterol 1.25MG/0.5ML NEB INH PRN (08:03)
[2016-12-25] MEDS: Insulin LISPRO* 1 UNITS UNIT SUBCUT SCH ×4 (08:59→20:59)
[2016-12-25] MEDS ORDERED: Divalproex DR TAB(*) 125 MG PO SCH (09:00)
[2016-12-25] MEDS ORDERED: Ipratropium 0.5MG/2.5ML NEB* 0.5 MG/2.5 ML NEB.SOLN INH SCH (09:00)
[2016-12-25] MEDS: Citalopram TAB* 20 MG PO SCH (09:00)
[2016-12-25] MEDS: Metoprolol Succinate XL TAB* 50 MG PO SCH (09:01)
[2016-12-25] MEDS: Terazosin CAP* 5 MG PO SCH (09:01)
[2016-12-25] MEDS: Furosemide TAB* 40 MG PO SCH (09:02)
[2016-12-25] MEDS: predniSONE TAB* 20 MG PO SCH (09:02)
[2016-12-25] MEDS: Potassium Chlor TAB* 20 MEQ TAB.ER PO SCH (09:03)
[2016-12-25] MEDS: Aspirin Low Dose CHEW TAB* 81 MG PO SCH (09:03)
[2016-12-25] MEDS: Rivaroxaban TAB(*) 20 MG TAB PO SCH (10:09)
[2016-12-25] MEDS ORDERED: Albuterol/Ipratropium NEB.SOL* Albuterol 2.5 MG/Ipratropium 0.5 MG 3 ML INH PRN (11:10)
[2016-12-25 13:08] LABS: Urine Bacteria 1+ (Absent); Urine Bilirubin Negative (Negative); Urine Glucose Negative (Negative); Urine Nitrite Negative (Negative)
[2016-12-25] MEDS ORDERED: Morphine ORAL CONCENTRATE* 5 MG/0.25 ML ORAL.SYRIN SL PRN (16:53)
[2016-12-25] MEDS ORDERED: Divalproex DR TAB(*) 250 MG PO SCH (18:00)
[2016-12-25] MEDS: Divalproex Sprinkle CAP* 125 MG PO SCH (20:37)
--- NOTE | 2016-12-25 21:05 | CONS ---
CC: Saul Contreras MD; Logan Kim MD * PALLIATIVE CARE CONSULTATION: DATE OF CONSULT: 12/25/16 PRIMARY CARE PHYSICIAN: Saul Contreras MD REFERRING PHYSICIAN: Logan Kim MD HOSPITAL COURSE: This is an 86-year-old male with a past medical history of moderate to advanced dementia, stroke, and atrial fibrillation who presented to the emergency room on the with shortness of breath from [facility]. On admission, the patient arrived to the emergency room on BiPAP. He was given Lasix in the emergency room and he was transferred up to the ICU off BiPAP. He was also started on ceftriaxone for concern of possible urinary tract infection. He was also noted to have an elevated troponin at that time. Apparently, the patient is supposed to be wearing oxygen routinely, but refuses to wear it on my encounter. The patient is able to tell me his name. He is able to shake his head yes or no to certain questions, but limited though, when he need to answer more complex questions. He is able to deny that he is in pain or any shortness of breath, but having difficulty following any commands. Otherwise, review of systems is difficult to obtain. I did speak with his son Cira and daughter Lindsey, the healthcare proxies regarding his care. I also spoke with B[facility] Schaefer as well. They state that he is mainly nonambulatory. He was ambulating up until a few months ago, but now is only able to transfer to the bed and chair. He still does recognize family, but he no longer has meaningful interactions and does have difficulty expressing his needs due to partly his expressive aphasia and his history of dementia. We spoke at length regarding the fact that his recent recurrent admissions for various reasons including respiratory issues and urinary tract infection issues and that this will be his 6th admission this year. They are concerned about him being transferred back and forth to different facilities and this is becoming more distressing for him, especially with his dementia. We spoke that the patient is still on 5 L and has not been weaned. I also suspect that he has some issues with dysphagia that he would be eligible for hospice based on the principal diagnosis of hypoxic respiratory failure and a secondary diagnosis of likely presumed dysphagia, although awaiting speech therapy evaluation. The family is agreeable to having hospice come to [facility] and we also modified his MOLST form to reflect no further hospitalization and comfort measures only as well. PAST MEDICAL HISTORY: 1. This is his 6th admission since 2017. 2. History of aspiration pneumonia. 3. History of urinary tract infection with BPH and chronic Hyman. 4. History of atrial fibrillation. 5. History of COPD, supposed to be on oxygen but noncompliant. 6. [id number]-tg-kucxasdh dementia. 7. History of CVA with expressive aphasia. 8. History of obstructive sleep apnea. 9. Hyperlipidemia. 10. Hypertension. INPATIENT MEDICATIONS: 1. DuoNeb 1 neb q.4 hours as needed. 2. Aspirin 81 mg p.o. daily. 3. Atorvastatin 10 mg every other day. 4. Celexa 20 mg p.o. daily. 5. Depakote 125 mg in the morning, 250 mg in the evening. 6. Lasix 40 mg p.o. daily. 7. Lispro sliding scale. 8. Levalbuterol 1.25 mg q.2 hours as needed. 9. Metoprolol succinate 150 mg p.o. daily. 10. Potassium chloride 20 mEq daily. 11. Xarelto 20 mg daily. 12. Ceftriaxone 1 g daily. 13. Terazosin 10 mg daily. 14. Prednisone 40 mg p.o. daily. ALLERGIES: No known drug allergies. FAMILY HISTORY: Father had an [place] and coronary artery disease. SOCIAL HISTORY: As mentioned, the patient resides at [facility]. His initial MOLST was DNR, DNI. We re-completed the MOLST form to be as well as comfort measures. No further rehospitalization. No IV fluids. No feeding tube. He is a former smoker. No alcohol or illicit drug use. His son, Cira, is his healthcare proxy, , and Lindsey, his daughter is the secondary proxy. His back in 2013, secondary to congestive heart failure. REVIEW OF SYSTEMS: Limited due to the patient's dementia. PHYSICAL EXAM: Vitals: Temp 98.7, pulse rate 97, respiratory rate 24, oxygen saturation 98% on 5 L, blood pressure 122/75. General: The patient somnolent, but awakes to tactile stimulation. Coarse rhonchorous audible breath sounds, in no acute distress. HEENT: Head normocephalic, atraumatic. Pupils are equal and reactive, anicteric. Oropharynx: Mucous membranes are dry. Respiratory: Coarse upper airway breath sounds, rhonchorous breath sounds bilaterally. Tachypnea noted. Cardiac: Irregularly irregular rate and rhythm. Soft systolic murmur heard throughout. Abdomen: Soft, nontender, nondistended. Extremities: +1 pretibial edema. Trace pulses. Neurologic: Alert and oriented x1. Oriented to self only. No gross focal neurologic deficits, though difficulty with following commands. DIAGNOSTIC STUDIES/LAB DATA: White count 5.5, hemoglobin 12.1, hematocrit 39, platelets 158,000. INR 2.52. pH 7.46, pCO2 46, pO2 76. Sodium 140, potassium 3.9, chloride 98, bicarb 34, BUN 30, creatinine 1.14, glucose 218. Troponin 0.09, peaked at 0.11. BNP 879. Albumin 3.5. Chest x-ray is unremarkable. ASSESSMENT: This is an 86-year-old male with a past medical history of cerebrovascular accident, atrial fibrillation, chronic obstructive pulmonary disease, and urinary retention with a chronic Hyman, who presented for the 6th time this year, now with respiratory distress from [facility]. The patient now on 5 L with difficulty weaning. I did speak with his family at length and with Lissette, our social director, and the patient is eligible for hospice with a principal diagnosis of hypoxic respiratory failure. We are awaiting speech therapy for evaluation, but I suspect dysphagia will be his secondary diagnosis ; if that is in fact the case, we will need to follow up as I suspect that aspiration is contributing to his respiratory failure issues. The family is interested in pursuing hospice at [facility] and this will get arranged and set up when he is ready for discharge. The MOLST form has been modified as reflected. I am going to start the patient on low dose morphine for air hunger as needed. Thank you for this consultation. I will follow along with you. TIME SPENT: Greater than 90 minutes was spent doing this consultation, more than half the time was spent in direct patient contact. [id number]/[facility] #: [id number] MANN
[2016-12-25] MEDS: cefTRIAXone VIAL(*) 1,000 MG in NS 0.9% 50 ML* 50 ML IVPB SCH (23:04)
[2016-12-26] MEDS: Insulin LISPRO* 1 UNITS UNIT SUBCUT SCH ×4 (08:24→21:28)
[2016-12-26] MEDS: Potassium Chlor TAB* 20 MEQ TAB.ER PO SCH (08:27)
[2016-12-26] MEDS: Divalproex Sprinkle CAP* 125 MG PO SCH ×2 (08:27→17:52)
[2016-12-26] MEDS: Furosemide TAB* 40 MG PO SCH (08:29)
[2016-12-26] MEDS: Citalopram TAB* 20 MG PO SCH (08:30)
[2016-12-26] MEDS: predniSONE TAB* 20 MG PO SCH (08:30)
[2016-12-26] MEDS: Metoprolol Succinate XL TAB* 50 MG PO SCH (08:32)
[2016-12-26] MEDS: Aspirin Low Dose CHEW TAB* 81 MG PO SCH (08:33)
[2016-12-26] MEDS: Rivaroxaban TAB(*) 20 MG TAB PO SCH (08:33)
[2016-12-26] MEDS ORDERED: Atorvastatin* 10 MG TAB PO SCH (09:00)
[2016-12-26] MEDS: Terazosin CAP* 5 MG PO SCH (10:47)
--- NOTE | 2016-12-26 14:33 | PN ---
Subjective Date of Service: 12/26/16 Interval History: HOSPITALIST PROGRESS NOTE Patient seen and examined at bedside. He offers no complaints at this time. More interested in playing with his pony. Family History: Unchanged from Admission Social History: Unchanged from Admission Past Medical History: Unchanged from Admission Objective Active Medications: Albuterol/Ipratropium (Duoneb (Albuterol 2.5 Mg/Ipratropium 0.5 Mg)) 1 neb INH Q4H PRN PRN Reason: SOB/WHEEZING Aspirin (Aspirin Low Dose Tab*) 81 mg PO DAILY [facility] Last Admin: 12/26/16 08:33 Dose: 81 mg Atorvastatin Calcium (Lipitor*) 10 mg PO EVERY OTHER DAY [facility] Last Admin: 12/26/16 08:30 Dose: 10 mg Citalopram Hydrobromide (Celexa Tab*) 20 mg PO DAILY [facility] Last Admin: 12/26/16 08:30 Dose: 20 mg Dextrose (D50w Syringe 50 Ml*) 12.5 gm IV PUSH .FOR FS < 60 - SS PRN PRN Reason: FS < 60 Divalproex Sodium (Depakote Sprinkle Cap*) 250 mg PO QPM [facility] Last Admin: 12/25/16 20:37 Dose: 250 mg Divalproex Sodium (Depakote Sprinkle Cap*) 125 mg PO QAM [facility] Last Admin: 12/26/16 08:27 Dose: 125 mg Furosemide (Lasix Tab*) 40 mg PO DAILY [facility] Last Admin: 12/26/16 08:29 Dose: 40 mg Ceftriaxone Sodium 1,000 mg/ (Sodium Chloride) 50 mls @ 200 mls/hr IVPB Q24H [facility] Last Admin: 12/25/16 23:04 Dose: 200 mls/hr Insulin Human Lispro (Humalog*) 0 units SUBCUT ACHS [facility] PRN Reason: Protocol Last Admin: 12/26/16 12:56 Dose: 3 unit Levalbuterol HCl (Xopenex 1.25 Mg/0.5 Ml Neb.Ada*) 1.25 mg INH Q2H PRN PRN Reason: SOB/WHEEZING Metoprolol Succinate (Toprol Xl Tab*) 150 mg PO DAILY [facility] Last Admin: 12/26/16 08:32 Dose: 150 mg Morphine Sulfate (Morphine Oral Concentrate*) 2 mg SL Q2H PRN PRN Reason: SHORTNESS OF BREATH Last Admin: 12/25/16 17:17 Dose: 2 mg Potassium Chloride (Klor Con Er Tab*) 20 meq PO DAILY [facility] Last Admin: 12/26/16 08:27 Dose: 20 meq Prednisone (Deltasone Tab*) 40 mg PO DAILY [facility] Last Admin: 12/26/16 08:30 Dose: 40 mg Rivaroxaban (Xarelto (*)) 20 mg PO DAILY [facility] Last Admin: 12/26/16 08:33 Dose: 20 mg Terazosin HCl (Hytrin Cap*) 10 mg PO DAILY [facility] Last Admin: 12/26/16 10:47 Dose: 10 mg Vital Signs 12/26/16 12/26/16 08:00 11:13 Temperature 98.5 F Pulse Rate 92 Respiratory 18 20 Rate Blood Pressure 125/67 (mmHg) O2 Sat by Pulse 100 Oximetry Oxygen Devices in Use Now: Nasal Cannula - 5L Appearance: Elderly male lying in bed in NAD. Eyes: No Scleral Icterus Ears/Nose/Mouth/Throat: Mucous Membranes Moist Neck: Trachea Midline Respiratory: Symmetrical Chest Expansion and Respiratory Effort, - - BS+ bilaterally with scattered wheeze Cardiovascular: - - Normal S1 and S2, irregularly irregular Abdominal: NL Sounds; No Tenderness; No Distention Neurological: - - Sleeping, arousable to voice, oriented to self only Lines/Tubes/Other Access: Clean, Dry and Intact Peripheral IV Nutrition: Taking PO's Result Diagrams: 12/24/16 20:15 12/24/16 20:15 Assess/Plan/Problems-Billing Assessment: Acute on chronic hypoxic respiratory failure 2/2 CHF exacerbation vs AFib/RVR vs COPD exacerbation vs mucous plug in an 86 yo M with hx of COPD (non- compliant with O2), AFib on xarelto, dementia, CVA, HLD, ANTIONETTE. - Patient Problems (1) Acute respiratory failure with hypoxia Comment: - Possibly multifactorial (COPD exacerbation, mild CHF exacerbation, uncontrolled AFib, aspiration). - Palliative care appreciated - plan to d/c to [place] with Hospice in AM. (2) Afib Comment: - Rate improved, continue metoprolol and xarelto. (3) BPH (benign prostatic hyperplasia) Comment: - Continue terazosin. Chronic ramirez in place. (4) Elevated troponin Comment: - No chest pain. Likely demand ischemia from hypoxia, no further work- up at this time. (5) DVT prophylaxis Comment: - Xarelto. Status and Disposition: Inpatient. Anticipate d/c in AM to [place] with Hospice.
--- NOTE | 2016-12-26 19:23 | PN ---
Progress Note - Progress Note Date of Service: 12/26/16 Note: Palliative care follow up note: Speech therapy eval noted severe oropharyngeal dysphagia likely secondary to his dementia. Dysphagia is considered a terminal diagnosis and is his secondary diagnosis for hospice eligibility.
[2016-12-27] MEDS: cefTRIAXone VIAL(*) 1,000 MG in NS 0.9% 50 ML* 50 ML IVPB SCH (00:05)
[2016-12-27 08:01] VITALS: BP 130/75
[2016-12-27] MEDS: Divalproex Sprinkle CAP* 125 MG PO SCH (08:06)
[2016-12-27] MEDS: predniSONE TAB* 20 MG PO SCH (08:07)
[2016-12-27] MEDS: Citalopram TAB* 20 MG PO SCH (08:07)
[2016-12-27] MEDS: Metoprolol Succinate XL TAB* 50 MG PO SCH (08:11)
[2016-12-27] MEDS: Potassium Chlor TAB* 20 MEQ TAB.ER PO SCH (08:15)
[2016-12-27] MEDS: Furosemide TAB* 40 MG PO SCH (08:16)
[2016-12-27] MEDS: Aspirin Low Dose CHEW TAB* 81 MG PO SCH (08:19)
[2016-12-27] MEDS: Terazosin CAP* 5 MG PO SCH (08:20)
[2016-12-27] MEDS: Rivaroxaban TAB(*) 20 MG TAB PO SCH (08:21)
[2016-12-27] MEDS: Insulin LISPRO* 1 UNITS UNIT SUBCUT SCH ×2 (08:24→13:30)
--- NOTE | 2016-12-27 11:43 | DS ---
CC: Dr. Contreras; Aston Schaefer; Dr. Grady, [facility] * DATE OF ADMISSION: 12/24/2016. DATE OF DISCHARGE: 12/27/2016. DISCHARGE DIAGNOSES: 1. Acute respiratory failure with hypoxia. 2. Acute COPD exacerbation. 3. Mild acute diastolic CHF exacerbation. 4. Atrial fibrillation with rapid ventricular rate. 5. Possible aspiration. 6. Mild to chronic elevation likely secondary to demand ischemia. SECONDARY DIAGNOSES: 1. Prior episode of aspiration pneumonia. 2. Prior episode of urinary tract infection with BPH and chronic Hyman for urinary retention. 3. COPD. 4. Atrial fibrillation. 5. Moderate to advanced dementia. 6. Prior CVA with residual expressive aphasia. 7. Obstructive sleep apnea. 8. Hyperlipidemia. 9. Hypertension. 10. Type 2 diabetes. MEDICATIONS: 1. Glipizide 2.5 mg p.o. daily. 2. Simvastatin 20 mg p.o. every other day. 3. Xarelto 20 mg p.o. daily. 4. Potassium Chloride 20 mEq p.o. daily. 5. Furosemide 40 mg p.o. daily. 6. Depakote 250 mg p.o. q.p.m. 7. Terazosin 10 mg p.o. daily. 8. Depakote DR 125 mg p.o. q.a.m. 9. Aspirin 81 mg p.o. daily. 10. Albuterol/Ipratropium nebulized q.4 hours prn shortness of breath. 11. Metoprolol Succinate 150 mg p.o. daily. 12. Prednisone taper as follows: 40 mg p.o. daily for 3 days, then 30 mg for 3 days, then 20 mg for 3 days, then 10 mg for 3 days, then 5 mg for 3 days and stop. 13. Morphine oral concentrate 5 mg sublingual q.4 hours prn pain or tachypnea with respiratory rate greater than 24, MDD 60 mg. 14. Citalopram 20 mg p.o. daily. 15. Augmentin 875 mg p.o. b.i.d. for 7 more days. HOSPITAL COURSE: Mr. Slaughter is an 86-year-old male with a past medical history as stated above who presented to the emergency room on December 24 with shortness of breath. He required BiPAP in the emergency room, received Furosemide with some improvement and at that point he was transferred to the Intensive Care Unit for BiPAP. The patient was started empirically on Ceftriaxone for concern for possible urinary tract infection. He was also noted to have mild elevation of troponin. Of note is the fact that this is his sixth admission during this year. The patient's initial chest x-ray showed no active cardiopulmonary disease and the impression was that his acute respiratory failure with hypoxia was likely multifactorial with a combination of mild COPD exacerbation, mild diastolic CHF exacerbation, atrial fibrillation with uncontrolled heart rate, and possible infection. The patient had improvement with diuresis, nebulizers, steroids, and antibiotics. As this was his sixth admission this year, Palliative Care was consulted and he was seen by Dr. Grady. She talked to the patient's son, daughter, and also [facility]. The patient is mainly nonambulatory. He was ambulated up until a few months ago, but now he is only able to transfer to bed and chair. He still does recognize family, but no longer has meaningful interactions and does have difficulty expressing his needs, partly due to his expressive aphasia and history of dementia. Dr. Grady spoke at length to his family about this recurrent admissions for various reasons, including respiratory issues and urinary tract infection, and the family is concerned about his being transferred back and forth to different facility and this is becoming more distressing for him, especially with his dementia. The family was agreeable with Hospice at [facility] and his MOLST form was also updated to reflect no further hospitalization and comfort measures only as well. There was also concern that dysphagia could be playing a roll on his respiratory issues. He underwent speech pathology evaluation and he was found to have severe oropharyngeal dysphagia for thin and nectar-thickened liquids, as well as for regular solid textures. The recommendation was for moist mechanical ground and solids with pureed fruits and vegetables and honey-thick liquids. They also recommended sitting the patient upright, small sips and bites, extra swallows, up for three minutes after eating. The patient had significant symptomatic improvement. He denies any complaints at this time. His oxygen saturation has been normal with four liters of oxygen and he was felt to be stable to return to [facility] to sign on to hospice in that facility. PHYSICAL EXAMINATION: General: The patient is a pleasantly confused, elderly male sitting up in bed in no acute distress, eating breakfast. Vital Signs: Temperature 97.2, heart rate 94, respiratory rate 18, oxygen saturation 97 percent on 4 liters, blood pressure 130/75. CVS: Normal S1, S2, irregularly irregular. Chest: Breath sounds bilaterally with bibasilar crackles, but no wheezing or rhonchi. Abdomen: Soft, bowel sounds are present. Neuro: He is alert, awake and oriented to self only. ACTIVITY: As tolerated. DISPOSITION: [facility] with hospice. STATUS WHILE IN THE HOSPITAL: Inpatient. Please keep in mind this is a summarized version of this patient's hospital stay. If you need more information, please feel free to call me at [phone] or please obtain the full medical records. Approximately 45 minutes were spent to complete the discharge. [id number]/CPS #: [id number]
== END 2016-12-27 13:49 | disposition hospice, home (50) | DRG 189 ==
LOC: ED 20:13 → ICU 22:19 → MEDTELE 12-25 12:39
PROVIDERS: ADMIT Internal Medicine; ATTEND Internal Medicine
PROC: 5A09357 Assistance with Respiratory Ventilation, Less than 24 Consecutive Hours, Continuous Positive Airway Pressure (ICD-10-PCS; principal; 2016-12-24)
DX: J96.01 Acute respiratory failure with hypoxia (principal); I50.31 Acute diastolic (congestive) heart failure; I24.8 Other forms of acute ischemic heart disease; J44.1 Chronic obstructive pulmonary disease with (acute) exacerbation; R13.12 Dysphagia, oropharyngeal phase; F03.90 Unspecified dementia, unspecified severity, without behavioral disturbance, psychotic disturbance, mood disturbance, and anxiety; I48.91 Unspecified atrial fibrillation; I11.0 Hypertensive heart disease with heart failure; G47.33 Obstructive sleep apnea (adult) (pediatric); E78.5 Hyperlipidemia, unspecified; E11.9 Type 2 diabetes mellitus without complications; I69.320 Aphasia following cerebral infarction; R74.8 Abnormal levels of other serum enzymes; R33.8 Other retention of urine; N40.1 Benign prostatic hyperplasia with lower urinary tract symptoms; Z66 Do not resuscitate; Z99.3 Dependence on wheelchair; Z79.01 Long term (current) use of anticoagulants; Z79.84 Long term (current) use of oral hypoglycemic drugs; Z79.82 Long term (current) use of aspirin; Z79.899 Other long term (current) drug therapy; Z82.49 Family history of ischemic heart disease and other diseases of the circulatory system; Z87.891 Personal history of nicotine dependence; Z91.19 Patient's noncompliance with other medical treatment and regimen; Z87.440 Personal history of urinary (tract) infections
CPT/HCPCS: 36415; 36600; 71010; 80053; 81003; 81015; 82803; 83605; 83880; 84484; 85025; 85379; 85610; 87070; 87077; 87086; 87185; 87205; 87641; 93005; 94640; 94660; 94760; A9270-GY; J0696; J1940; J7512